=== PATIENT | male | born 1935 | race Caucasian/White ===

== ENCOUNTER 2016-07-30 09:10 | Emergency (ER) | payer MEDICARE, BC ==
--- NOTE | 2016-07-30 10:22 | EDM.PDOC ---
ED HISTORY OF PRESENT ILLNESS - General Chief Complaint: Respiratory Problem Stated Complaint: SWOLLEN FEET,CONGESTION Time Seen by Provider: 07/30/16 09:40 Source: Reports: Patient, Family, Old records, RN notes reviewed History Limitations: Reports: No limitations - History of Present Illness INITIAL COMMENTS - FREE TEXT/NARRATIVE: 81-year-old gentleman presents emergency department today complaining of shortness of breath and congestion as well as weight gain and swollen feet. Is recently admitted to hospital on the of this month for bilateral pneumonia treated with the IV antibiotics did well with good resolution cultures were negative however a time admission BNP was 2600 he does have a known history of aortic stenosis his last gradient done in March of 2016 was 31 mm he is trying to decide if he is a candidate for valve replacement for which the cut off is 40 mm. Denies any fevers or chest pain no or GI symptoms, - Related Data Allergies/ADRs: Allergies Allergy/AdvReac Type Severity Reaction Status Date / Time amoxicillin [From Augmentin] AdvReac Diarrhea Verified 07/30/16 09:25 atorvastatin calcium AdvReac Muscle Verified 07/30/16 09:25 [From Lipitor] Aches clavulanic acid AdvReac Diarrhea Verified 07/30/16 09:25 [From Augmentin] Home Meds: Home Meds Allopurinol [Zyloprim] 300 mg PO DAILY 09/30/13 [History] Aspirin [[place] Chewable Aspirin] 81 mg PO DAILY 09/30/13 [History] Rosuvastatin [Crestor] 10 mg PO DAILY 09/30/13 [History] Valsartan/Hydrochlorothiazide [Valsartan-Hctz 160-25 mg Tab] 1 each PO DAILY 06/15 [History] Pindolol 5 mg PO BID 07/20/16 [History] Saw [place] Fruit [Saw [place]] 1 tab PO DAILY 07/20/16 [History] Levofloxacin [Levaquin] 750 mg PO Q24H #4 tablet 07/26/16 [Rx] L.acidoph,Paracasei, B.lactis [Probiotic] 1 each PO DAILY 07/30/16 [History] Past Medical History HEENT History: Reports: Hard of hearing, Impaired vision Cardiovascular History: Reports: High cholesterol, Hypertension Other Cardiovascular History: aortic stenosis Respiratory History: Reports: Bronchitis, recurrent, Pneumonia, recurrent Gastrointestinal History: Reports: Other (see below) Other Gastrointestinal History: fiona has slight ter in large intestine after having CT scan 2 weeks ago Genitourinary History: Reports: BPH Endocrine/Metabolic History: Reports: Diabetes, type II, Hypothyroidism Hematologic History: Reports: Idiopathic thrombocytopenia Oncologic (Cancer) History: Reports: Other (see below) Other Oncologic History: 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 Dermatologic History: Reports: Melanoma Other Dermatologic History: back - Infectious Disease History Infectious Disease History: Reports: Chicken pox, Shingles - Past Surgical History Respiratory Surgical History: Reports: Thoracotomy Social & Family History - Family History Family Medical History: Noncontributory - Tobacco Use Smoking Status *Q: Never Smoker Second Hand Smoke Exposure: No - Caffeine Use Caffeine Use: Reports: Coffee Other Caffeine Use: 3 cups coffee per day - Alcohol Use Days Per Week of Alcohol Use: 3 Number of Drinks Per Day: 2 Total Drinks Per Week: 6 - Recreational Drug Use Recreational Drug Use: No ED ROS GENERAL - Review of Systems Review Of Systems: See Below Constitutional: Reports: weight gain. Denies: fever, chills HEENT: Reports: No symptoms Respiratory: Reports: shortness of breath, cough. Denies: wheezing, sputum Cardiovascular: Reports: Dyspnea on exertion. Denies: Chest pain GI/Abdominal: Reports: No symptoms : Reports: no symptoms Musculoskeletal: Reports: no symptoms Skin: Reports: no symptoms Neurological: Reports: no symptoms Psychiatric: Reports: No symptoms ED EXAM, GENERAL - Physical Exam Exam: See Below Free Text/Narrative:: General: Male, not in any distress, alert and oriented x3 HEENT: head is atraumatic normocephalic, eyes pupils equal round reactive to light and accommodation sclera clear no conjunctivitis appreciated. Ears tympanic membranes clear and perez landmarks and light reflex are present bilaterally canals are clear. Nose no septal deviation, nares are clear, no blood present. Mouth mucosa is dry and pink no erythema or exudate noted in soft palate, tongue is midline uvula is midline, dentition is intact. Neck: Supple no thyromegaly no tracheal deviation. Nodes: Cervical nodes subclavicular nodes nontender no palpable lymphadenopathy noted. Lungs: Good aeration however crackles can be appreciated mid to lower lung larios bilaterally CV: Regular rate and rhythm S1 and S2 appreciated grade 3/6 systolic ejection murmur best appreciated left sternal border. Abdomen: Soft, nontender, no palpable masses or organomegaly appreciated, no distention no guarding bowel sounds are present, . Neuro: Cranial nerves II through XII grossly intact Skin: Warm and dry, intact Extremities: +2 pitting pedal edema bilaterally Course - Vital Signs Last Recorded V/S: Last Vital Signs Temp 97.2 F 07/30/16 09:10 Pulse 101 H 07/30/16 09:10 Resp 15 07/30/16 09:10 BP 148/84 H 07/30/16 11:01 Pulse Ox 86 L 07/30/16 09:10 - Orders/Labs/Meds Orders: Active Orders 24 hr Category Date Time Status Cardiac Monitoring [RC] .As Directed Care 07/30/16 10:16 Active Peripheral IV Care [RC] . DIRECTED Care 07/30/16 10:43 Active Sodium Chloride 0.9% [Saline Flush] Med 07/30/16 10:43 Active 10 ml FLUSH ASDIRECTED PRN Peripheral IV Insertion Adult [OM.PC] Urgent Oth 07/30/16 10:42 Ordered Medication Orders Sodium Chloride (Saline Flush) 10 ml FLUSH ASDIRECTED PRN PRN Reason: Keep Vein Open Labs: Laboratory Tests 07/30/16 07/30/16 07/30/16 Range/Units 10:21 10:21 10:31 WBC 9.0 (4.5-11.0) K/uL RBC 4.48 (4.30-5.90) M/uL Hgb 13.4 (12.0-15.0) g/dL Hct 40.0 (40.0-54.0) % MCV 89 (80-98) fL MCH 30 (27-31) pg MCHC 34 (32-36) % Plt Count 232 (150-400) K/uL Neut % (Auto) 79 H (36-66) % Lymph % (Auto) 10 L (24-44) % [place] % (Auto) 10 H (2-6) % Eos % (Auto) 1 L (2-4) % Baso % (Auto) 0 (0-1) % Sodium 132 L (140-148) mmol/L Potassium 3.3 L (3.6-5.2) mmol/L Chloride 91 L (100-108) mmol/L Carbon Dioxide 34 H (21-32) mmol/L Anion Gap 10.3 (5.0-14.0) mmol/L BUN 16 (7-18) mg/dL Creatinine 1.1 (0.8-1.3) mg/dL Est Cr Clr Drug Dosing 52.54 mL/min Estimated GFR (MDRD) > 60 (>60) Glucose 114 H (74-106) mg/dL Calcium 8.3 L (8.5-10.1) mg/dL Total Bilirubin 0.6 (0.2-1.0) mg/dL AST 50 H (15-37) U/L ALT 110 H (12-78) U/L Alkaline Phosphatase 113 D (46-116) U/L Troponin I < 0.017 (0.000-0.056) ng/mL [id number]-[id number] Pept 772 H (5-450) pg/mL Total Protein 6.6 (6.4-8.2) g/dL Albumin 2.8 L (3.4-5.0) g/dL Globulin 3.8 H (2.3-3.5) g/dL Albumin/Globulin Ratio 0.7 L (1.2-2.2) Urine Color Yellow Urine Appearance Clear Urine pH 7.0 (4.5-8.0) Ur Specific [place] 1.010 (1.008-1.030) Urine Protein Negative (NEGATIVE) mg/dL Urine Glucose (UA) Normal (NEGATIVE) mg/dL Urine Ketones Negative (NEGATIVE) mg/dL Urine Occult Blood Negative (NEGATIVE) Urine Nitrite Negative (NEGAITVE) Urine Bilirubin Negative (NEGATIVE) Urine Urobilinogen Normal (NORMAL) mg/dL Ur Leukocyte Esterase Negative (NEGATIVE) Urine RBC 0-5 (0-5) Urine WBC 0-5 (0-5) Ur Epithelial Cells Rare Amorphous Sediment Not seen Urine Bacteria Not seen Urine Mucus Not seen Meds: Medications Generic Name Dose Route Start Last Admin Trade Name Freq PRN Reason Stop Dose Admin Sodium Chloride 10 ml 07/30/16 10:43 Saline Flush FLUSH ASDIRECTED PRN Keep Vein Open Discontinued Medications Generic Name Dose Route Start Last Admin Trade Name Freq PRN Reason Stop Dose Admin Furosemide 40 mg 07/30/16 10:43 07/30/16 11:01 Lasix IVPUSH 07/30/16 10:44 40 mg ONETIME ONE Administration Departure - Departure Time of Disposition: 12:41 Disposition: Home, Self-Care 01 Condition: fair Clinical Impression: Aortic stenosis Qualifiers: Cardiac valve disease etiology: etiology unspecified Qualified Code(s): I35.0 - Nonrheumatic aortic (valve) stenosis Forms: ED Department Discharge Additional Instructions: start the Lasix 40 mg once a day in the morning start that medication tomorrow, please call your primary care provider or your pens and pencils dipper on Friday if you have not heard the results of the echocardiogram, call or return to the ED with worsening of symptoms - My Orders Last 24 Hours: My Active Orders 07/30/16 10:16 Cardiac Monitoring [RC] .As Directed 07/30/16 10:42 Peripheral IV Insertion Adult [OM.PC] Urgent 07/30/16 10:43 Peripheral IV Care [RC] . DIRECTED Sodium Chloride 0.9% [Saline Flush] 10 ml FLUSH ASDIRECTED PRN - Assessment/Plan Last 24 Hours: My Active Orders 07/30/16 10:16 Cardiac Monitoring [RC] .As Directed 07/30/16 10:42 Peripheral IV Insertion Adult [OM.PC] Urgent 07/30/16 10:43 Peripheral IV Care [RC] . DIRECTED Sodium Chloride 0.9% [Saline Flush] 10 ml FLUSH ASDIRECTED PRN Plan: Assessment Acuity = chronic Site and laterality = aortic stenosis Etiology = fluid back up secondary to aortic stenosis Manifestations = dyspnea, pedal edema, weight gain Location of injury = home Lab values = CBC unremarkable sodium load 132 consistent hyponatremia potassium low at 3.3 consistent hypokalemia AST elevated at 50 ALT elevated at 110 consistently elevated liver enzymes BNP mildly elevated at 772 albumin 2.8 consistent hypoalbuminemia chest x-ray shows resolution of pneumonias Plan I did review the pathophysiology of his aortic stenosis with him his last echo demonstrated a aortic gradient of 31 mmHg I set him up for an echocardiogram in 2 days he was given 40 mg of Lasix here plan to continue 40 mg of Lasix once a day I have also discussed the case with his primary care provider who he is going to contact next week and we'll go over the results of his echocardiogram if he does meet criteria primary care and/or his pens and pencils dipper we'll try and coordinate a consultation for a transaortic valve replacement if he does not meet criteria continue with medical management and symptomatic care Patient was in agreement with the plan all questions were answered, they were instructed to return to the emergency department or call for worsening symptoms. This note was dictated using Scaleform voice recognition software please call with any questions.
[2016-07-30] MEDS ORDERED: Furosemide 40 MG/4 ML VIAL IVPUSH ONE (10:43)
[2016-07-30] MEDS ORDERED: Sodium Chloride 0.9% 10 ML Syringe FLUSH PRN (10:43)
--- NOTE | 2016-07-30 10:52 | CR ---
Chest 2V HISTORY: Shortness of breath COMPARISON: Chest x-ray 07/22/[address] chest 07/20/2016. FINDINGS: Elevation left hemidiaphragm. Patient has known infiltrates at both lung bases on prior CT scan. There is likely some minimal subtle residual infiltrate at the medial left lung base. Right l kaveh is clear. Old left-sided rib deformities. Impression: Probable minimal infiltrate remaining at left lung base.
[2016-07-30 13:48] VITALS: BP 144/77
== END 2016-07-30 13:49 | disposition home or self-care (01) ==
LOC: JP.ED 09:10
DX: I35.0 Nonrheumatic aortic (valve) stenosis (principal); E78.00 Pure hypercholesterolemia, unspecified; E11.9 Type 2 diabetes mellitus without complications; I10 Essential (primary) hypertension; E03.9 Hypothyroidism, unspecified; Z79.82 Long term (current) use of aspirin; Z79.899 Other long term (current) drug therapy; Z88.1 Allergy status to other antibiotic agents; Z88.8 Allergy status to other drugs, medicaments and biological substances
CPT/HCPCS: 36415; 71020; 80053; 81001; 83880; 84484; 85025; 96374; 99285; J1940; 99284

== ENCOUNTER 2016-12-05 12:40 | Inpatient (IN) | payer MEDICARE, BC ==
--- NOTE | 2016-12-05 14:18 | CR ---
Cardiomegaly. Elevated left hemidiaphragm. Scarring or atelectasis left lung base. Old left rib frac tures. Diffuse hazy density right upper lobe most indicative of pneumonia. Density appears somewhat nodular and would recommend radiographic follow-up to resolution.
--- NOTE | 2016-12-05 15:20 | EDM.PDOC ---
ED HPI GENERAL MEDICAL PROBLEM - General Chief Complaint: Respiratory Problem Stated Complaint: MED[facility] Time Seen by Provider: 12/05/16 13:08 Source of Information: Reports: Patient, Family History Limitations: Reports: No Limitations - History of Present Illness INITIAL COMMENTS - FREE TEXT/NARRATIVE: This patient arrived by EMS. His said that this morning he was started sprawled out on the bed half on half off syncope this oriented disoriented. He needed help getting up. He did seem to respond very well he seemed to be wheezing. He refused to go the hospital but his called the EMS a second time and he finally decided to come in. He had slumped again and had more congestion she thought his left side seemed a little bit droopy. He was outside all day yesterday doesn't eat or drink much. Yesterday he went to cardiac rehabilitation and they recommended he be evaluated in the ER and he refused. This patient had an aortic valve replacement and Sue at [facility]. - Related Data Allergies Allergy/AdvReac Type Severity Reaction Status Date / Time amoxicillin [From Augmentin] AdvReac Diarrhea Verified 07/30/16 09:25 atorvastatin calcium AdvReac Muscle Verified 07/30/16 09:25 [From Lipitor] Aches clavulanic acid AdvReac Diarrhea Verified 07/30/16 09:25 [From Augmentin] Home Meds: Home Meds Allopurinol [Zyloprim] 300 mg PO DAILY 09/30/13 [History] Aspirin [[place] Chewable Aspirin] 81 mg PO DAILY 09/30/13 [History] Rosuvastatin [Crestor] 10 mg PO DAILY 09/30/13 [History] Valsartan/Hydrochlorothiazide [Valsartan-Hctz 160-25 mg Tab] 1 each PO DAILY 06/15 [History] Pindolol 5 mg PO BID 07/20/16 [History] Saw [place] Fruit [Saw [place]] 1 tab PO DAILY 07/20/16 [History] Clopidogrel [Plavix] 1 tab PO DAILY 12/05/16 [History] Levothyroxine 1 tab PO DAILY 12/05/16 [History] Magnesium Oxide [Magnesium] 1 tab PO DAILY 12/05/16 [History] Past Medical History HEENT History: Reports: Hard of Hearing, Impaired Vision Cardiovascular History: Reports: High Cholesterol, Hypertension Other Cardiovascular History: aortic stenosis Respiratory History: Reports: Bronchitis, Recurrent, Pneumonia, Recurrent Gastrointestinal History: Reports: Other (See Below) Other Gastrointestinal History: stats has slight ter in large intestine after having CT scan 2 weeks ago Genitourinary History: Reports: BPH Musculoskeletal History: Reports: Gout Endocrine/Metabolic History: Reports: Diabetes, Type II, Hypothyroidism Hematologic History: Reports: Idiopathic Thrombocytopenia Oncologic (Cancer) History: Reports: Other (See Below) Other Oncologic History: 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 Dermatologic History: Reports: Melanoma Other Dermatologic History: back - Infectious Disease History Infectious Disease History: Reports: Chicken Pox, Shingles - Past Surgical History Respiratory Surgical History: Reports: Thoracotomy Social & Family History - Family History Family Medical History: Noncontributory - Tobacco Use Smoking Status *Q: Never Smoker Second Hand Smoke Exposure: No - Caffeine Use Caffeine Use: Reports: Coffee Other Caffeine Use: 3 cups coffee per day - Alcohol Use Days Per Week of Alcohol Use: 3 Number of Drinks Per Day: 2 Total Drinks Per Week: 6 - Recreational Drug Use Recreational Drug Use: No ED ROS GENERAL - Review of Systems Review Of Systems: ROS reveals no pertinent complaints other than HPI. Constitutional: Reports: Other (See history of present illness) HEENT: Reports: No Symptoms Respiratory: Reports: Wheezing, Cough Cardiovascular: Reports: No Symptoms Endocrine: Reports: No Symptoms GI/Abdominal: Reports: No Symptoms : Reports: No Symptoms Musculoskeletal: Reports: No Symptoms Skin: Reports: No Symptoms Neurological: Reports: Other (Same as out of it) Psychiatric: Reports: No Symptoms (Seems out of it) Hematologic/Lymphatic: Reports: No Symptoms ED EXAM, GENERAL - Physical Exam Exam: See Below Exam Limited By: No Limitations General Appearance: Alert, No Apparent Distress, Other (Awake alert happy smiling talkative eating lunch. He does have a wet sounding cough.) Eye Exam: Bilateral Eye: Normal Inspection Ears: Normal External Exam Throat/Mouth: Normal Oropharynx Head: Atraumatic Neck: Normal Inspection Respiratory/Chest: Rhonchi (Fight rhonchi bilaterally.) Cardiovascular: Regular Rate, Rhythm GI/Abdominal: Non-Tender Extremities: Normal Inspection Neurological: Alert, Oriented Psychiatric: Normal Affect, Normal Mood Skin Exam: Warm, Dry, Other (Skin turgor normal) Course - Vital Signs Last Recorded V/S: Last Vital Signs Temp 36.8 C 12/05/16 12:58 Pulse 98 12/05/16 12:58 Resp 18 12/05/16 12:58 BP 169/76 H 12/05/16 12:58 Pulse Ox 95 12/05/16 12:58 - Orders/Labs/Meds Orders: Active Orders 24 hr Category Date Time Status EKG Documentation Completion [RC] ASDIRECTED Care 12/05/16 13:20 Active CULTURE BLOOD [BC] Urgent Lab 12/05/16 15:07 Ordered CULTURE BLOOD [BC] Urgent Lab 12/05/16 15:07 Ordered Blood Culture x2 Reflex Set [OM.PC] Urgent Oth 12/05/16 15:07 Ordered EKG 12 Lead [EK] Urgent Ther 12/05/16 13:20 Ordered Labs: Laboratory Tests 12/05/16 12/05/16 12/05/16 Range/Units 13:30 13:30 14:10 WBC 28.8 H (4.5-11.0) K/uL RBC 3.96 L (4.30-5.90) M/uL Hgb 12.0 (12.0-15.0) g/dL Hct 36.1 L (40.0-54.0) % MCV 91 (80-98) fL MCH 30 (27-31) pg MCHC 33 (32-36) % Plt Count 188 (150-400) K/uL Neut % (Auto) 94 H (36-66) % Lymph % (Auto) 2 L (24-44) % [place] % (Auto) 4 (2-6) % Eos % (Auto) 0 L (2-4) % Baso % (Auto) 0 (0-1) % Sodium 125 L (140-148) mmol/L Potassium 4.6 (3.6-5.2) mmol/L Chloride 93 L (100-108) mmol/L Carbon Dioxide 25 (21-32) mmol/L Anion Gap 11.6 (5.0-14.0) mmol/L BUN 35 H D (7-18) mg/dL Creatinine 2.1 H D (0.8-1.3) mg/dL Est Cr Clr Drug Dosing 27.52 mL/min Estimated GFR (MDRD) 30 L (>60) Glucose 214 H (74-106) mg/dL Calcium 8.6 (8.5-10.1) mg/dL Total Bilirubin 0.6 (0.2-1.0) mg/dL AST 32 (15-37) U/L ALT 24 D (12-78) U/L Alkaline Phosphatase 56 (46-116) U/L Troponin I 0.079 H* (0.000-0.056) ng/mL Agg-C-Olqhgknydry Pept 3610 H (5-450) pg/mL Total Protein 7.0 (6.4-8.2) g/dL Albumin 3.0 L (3.4-5.0) g/dL Globulin 4.0 H (2.3-3.5) g/dL Albumin/Globulin Ratio 0.8 L (1.2-2.2) Urine Color [place] Urine Appearance Slightly cloudy Urine pH 5.0 (4.5-8.0) Ur Specific [place] 1.020 (1.008-1.030) Urine Protein Trace (NEGATIVE) mg/dL Urine Glucose (UA) Normal (NEGATIVE) mg/dL Urine Ketones Negative (NEGATIVE) mg/dL Urine Occult Blood Negative (NEGATIVE) Urine Nitrite Negative (NEGAITVE) Urine Bilirubin Small (NEGATIVE) Urine Urobilinogen 1 (NORMAL) mg/dL Ur Leukocyte Esterase Negative (NEGATIVE) Urine RBC 0-5 (0-5) Urine WBC 0-5 (0-5) Ur Epithelial Cells Few Amorphous Sediment Rare Urine Bacteria Not seen Urine Mucus Not seen Urine Other - Radiology Interpretation Free Text/Narrative:: Chest x-ray shows fluffy infiltrates right side consistent with pneumonia - Re-Assessments/Exams Free Text/Narrative Re-Assessment/Exam: 12/05/16 15:18 EKG showed sinus tachycardia at 101. There may be right ventricular conduction delay. No obvious ischemic changes White blood cell count is over 28,000 troponin is elevated but it's believe that is due to infection. I informed patient that he had evidence of pneumonia needed to be in the hospital on IV antibiotics. I informed Dr. Felder he'll see him in the ER very shortly. Blood cultures have been ordered Departure - Departure Time of Disposition: 15:19 Disposition: Admitted As Inpatient 64 Condition: Serious Clinical Impression: Pneumonia - Discharge Information Forms: ED Department Discharge - My Orders Last 24 Hours: My Active Orders 12/05/16 13:20 EKG Documentation Completion [RC] ASDIRECTED EKG 12 Lead [EK] Urgent 12/05/16 15:07 CULTURE BLOOD [BC] Urgent CULTURE BLOOD [BC] Urgent Blood Culture x2 Reflex Set [OM.PC] Urgent - Assessment/Plan Last 24 Hours: My Active Orders 12/05/16 13:20 EKG Documentation Completion [RC] ASDIRECTED EKG 12 Lead [EK] Urgent 12/05/16 15:07 CULTURE BLOOD [BC] Urgent CULTURE BLOOD [BC] Urgent Blood Culture x2 Reflex Set [OM.PC] Urgent
--- NOTE | 2016-12-05 16:28 | PCM.HP ---
H&P History of Present Illness - General Date of Service: 12/05/16 Admit Problem/Dx: Admission Diagnosis/Problem Admission Diagnosis/Problem Pneumonia Source of Information: Patient, Family, Provider History Limitations: Reports: Altered Mental Status - History of Present Illness Initial Comments - Free Text/Narative: Trever presents to the emergency room today with several days of cough, shortness of breath and acute onset of weakness and confusion this morning. He believes that he has been in his usual state of health until this morning but his reports that he has been coughing quite a bit and was told that he should be seen by a doctor yesterday. She has noticed that he has been more short of breath. This morning he was very weak and was confused and slurring his speech. She did not notice any specific difficulties with focal weakness. No fevers were measured at home. Appetite and energy have both been decreased throughout the day. No reports of diarrhea or change in bowel habits. No lower extremity edema. He had his aortic valve replaced at the end of August and had been doing well prior to progression of symptoms more recently. Workup in the emergency room was suggestive of right lung pneumonia as well as acute kidney injury. He is hypoxic and requires more than 3 L of supplemental oxygen. Troponin level was also mildly elevated. He will be admitted to the intensive care unit for further treatment. - Related Data Allergies/Adverse Reactions: Allergies Allergy/AdvReac Type Severity Reaction Status Date / Time amoxicillin [From Augmentin] AdvReac Diarrhea Verified 07/30/16 09:25 atorvastatin calcium AdvReac Muscle Verified 07/30/16 09:25 [From Lipitor] Aches clavulanic acid AdvReac Diarrhea Verified 07/30/16 09:25 [From Augmentin] Home Medications: Home Meds Allopurinol [Zyloprim] 300 mg PO DAILY 09/30/13 [History] Aspirin [[place] Chewable Aspirin] 81 mg PO DAILY 09/30/13 [History] Rosuvastatin [Crestor] 10 mg PO DAILY 09/30/13 [History] Pindolol 5 mg PO BID 07/20/16 [History] Saw [place] Fruit [Saw [place]] 1 tab PO DAILY 07/20/16 [History] Clopidogrel [Plavix] 75 mg PO DAILY 12/05/16 [History] Levothyroxine 25 mcg PO DAILY 12/05/16 [History] Magnesium Oxide [Magnesium] 400 mg PO BID 12/05/16 [History] Valsartan 160 mg PO DAILY 12/05/16 [History] Past Medical History HEENT History: Reports: Hard of Hearing, Impaired Vision Cardiovascular History: Reports: High Cholesterol, Hypertension Other Cardiovascular History: aortic stenosis Respiratory History: Reports: Bronchitis, Recurrent, Pneumonia, Recurrent Gastrointestinal History: Reports: Other (See Below) Other Gastrointestinal History: stats has slight ter in large intestine after having CT scan 2 weeks ago Genitourinary History: Reports: BPH Musculoskeletal History: Reports: Gout Endocrine/Metabolic History: Reports: Diabetes, Type II, Hypothyroidism Hematologic History: Reports: Idiopathic Thrombocytopenia Oncologic (Cancer) History: Reports: Other (See Below) Other Oncologic History: 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 Dermatologic History: Reports: Melanoma Other Dermatologic History: back - Infectious Disease History Infectious Disease History: Reports: Chicken Pox, Shingles - Past Surgical History Respiratory Surgical History: Reports: Thoracotomy Social & Family History - Family History Family Medical History: Noncontributory - Tobacco Use Smoking Status *Q: Never Smoker Second Hand Smoke Exposure: No - Caffeine Use Caffeine Use: Reports: Coffee Other Caffeine Use: 3 cups coffee per day - Alcohol Use Days Per Week of Alcohol Use: 3 Number of Drinks Per Day: 2 Total Drinks Per Week: 6 - Recreational Drug Use Recreational Drug Use: No H&P Review of Systems - Review of Systems: Review Of Systems: See Below Free Text/Narrative: A complete 12 point review of systems was obtained. Pertinent positives and negatives are noted in the history of present illness. All other systems were reviewed and were negative except as noted. Exam - Exam Exam: See Below - Vital Signs Vital Signs: Last Vital Signs Temp 36.8 C 12/05/16 12:58 Pulse 98 12/05/16 12:58 Resp 18 12/05/16 12:58 BP 169/76 H 12/05/16 12:58 Pulse Ox 95 12/05/16 12:58 Weight: 80.286 kg - Exam Quality Assessment: Supplemental Oxygen General: Alert, Oriented, Cooperative. No: Mild Distress HEENT: Conjunctiva Clear, Posterior Pharynx Clear. No: Scleral Icterus Neck: Supple, Trachea Midline. No: Lymphadenopathy, Thyromegaly Lungs: Normal Respiratory Effort, Rales (throughout right lung). No: Wheezing Cardiovascular: Regular Rate, Regular Rhythm Abdomen: Normal Bowel Sounds, Soft. No: Distention, Tenderness Back Exam: Normal Inspection, Full Range of Motion Extremities: Normal Inspection, Edema (mild ankle edema). No: Cyanosis Skin: Warm, Dry Neuro Extensive - Mental Status: Alert, Oriented x3, Nl Response to Commands Neuro Extensive - Motor, Sensory, Reflexes: CN II-XII Intact. No: Dysarthria, Abnormal Motor, Tremor Psychiatric: Alert, Normal Affect - Patient Data Lab Results Last 24 hrs: Laboratory Results - last 24 hr 12/05/16 12/05/16 12/05/16 Range/Units 13:30 13:30 14:10 WBC 28.8 H (4.5-11.0) K/uL RBC 3.96 L (4.30-5.90) M/uL Hgb 12.0 (12.0-15.0) g/dL Hct 36.1 L (40.0-54.0) % MCV 91 (80-98) fL MCH 30 (27-31) pg MCHC 33 (32-36) % Plt Count 188 (150-400) K/uL Neut % (Auto) 94 H (36-66) % Lymph % (Auto) 2 L (24-44) % [place] % (Auto) 4 (2-6) % Eos % (Auto) 0 L (2-4) % Baso % (Auto) 0 (0-1) % Sodium 125 L (140-148) mmol/L Potassium 4.6 (3.6-5.2) mmol/L Chloride 93 L (100-108) mmol/L Carbon Dioxide 25 (21-32) mmol/L Anion Gap 11.6 (5.0-14.0) mmol/L BUN 35 H D (7-18) mg/dL Creatinine 2.1 H D (0.8-1.3) mg/dL Est Cr Clr Drug Dosing 27.52 mL/min Estimated GFR (MDRD) 30 L (>60) Glucose 214 H (74-106) mg/dL Calcium 8.6 (8.5-10.1) mg/dL Total Bilirubin 0.6 (0.2-1.0) mg/dL AST 32 (15-37) U/L ALT 24 D (12-78) U/L Alkaline Phosphatase 56 (46-116) U/L Troponin I 0.079 H* (0.000-0.056) ng/mL [id number] Pept 3610 H (5-450) pg/mL Total Protein 7.0 (6.4-8.2) g/dL Albumin 3.0 L (3.4-5.0) g/dL Globulin 4.0 H (2.3-3.5) g/dL Albumin/Globulin Ratio 0.8 L (1.2-2.2) Urine Color [place] Urine Appearance Slightly cloudy Urine pH 5.0 (4.5-8.0) Ur Specific [place] 1.020 (1.008-1.030) Urine Protein Trace (NEGATIVE) mg/dL Urine Glucose (UA) Normal (NEGATIVE) mg/dL Urine Ketones Negative (NEGATIVE) mg/dL Urine Occult Blood Negative (NEGATIVE) Urine Nitrite Negative (NEGAITVE) Urine Bilirubin Small (NEGATIVE) Urine Urobilinogen 1 (NORMAL) mg/dL Ur Leukocyte Esterase Negative (NEGATIVE) Urine RBC 0-5 (0-5) Urine WBC 0-5 (0-5) Ur Epithelial Cells Few Amorphous Sediment Rare Urine Bacteria Not seen Urine Mucus Not seen Urine Other Result Diagrams: 12/05/16 13:30 12/05/16 13:30 Imaging Impressions Last 24 hrs: CXR - images personally reviewed - hazy right upper chest density concerning for pneumonia. No effusion or mass *Q Meaningful Use (ADM) - VTE *Q VTE Criteria *Q: - VTE Risk Assess *Q Each Risk Factor Represents 1 Point: Swollen Legs, Current Total Score 1 Point Risk Factors: 1 Each Risk Factor Represents 2 Points: None, Previous Malignancy Total Score 2 Point Risk Factors: 2 Each Risk Factor Represents 3 Points: Age 75 Years or Greater Total Score 3 Point Risk Factors: 3 Each Risk Factor Represents 5 Points: None Total Score 5 Point Risk Factors: 0 Venous Thromboembolism Risk Factor Score *Q: 6 - Stroke *Q Stroke Criteria *Q: - AMI *Q AMI Criteria *Q: - Problem List (1) Pneumonia involving right lung SNOMED Code(s): 908318073 ICD Code: J18.9 - PNEUMONIA, UNSPECIFIED ORGANISM Status: Acute Current Visit: Yes Qualifiers: Pneumonia type: due to unspecified organism Lung location: unspecified part of lung Qualified Code(s): J18.9 - Pneumonia, unspecified organism (2) Acute kidney injury SNOMED Code(s): 28358779 ICD Code: N17.9 - ACUTE KIDNEY FAILURE, UNSPECIFIED Status: Acute Current Visit: Yes (3) HTN, Essential hypertension SNOMED Code(s): 60060061 ICD Code: I10 - ESSENTIAL (PRIMARY) HYPERTENSION Status: Chronic Current Visit: No (4) Aortic stenosis SNOMED Code(s): 80713908 ICD Code: I35.0 - NONRHEUMATIC AORTIC (VALVE) STENOSIS Status: Chronic Current Visit: No Qualifiers: Cardiac valve disease etiology: etiology unspecified Qualified Code(s): I35.0 - Nonrheumatic aortic (valve) stenosis Problem List Initiated/Reviewed/Updated: Yes Orders Last 24hrs: Active Orders 24 hr Category Date Time Status Patient Status Manage Transfer [TRANSFER] Routine ADT 12/05/16 16:16 Ordered EKG Documentation Completion [RC] ASDIRECTED Care 12/05/16 13:20 Active CULTURE BLOOD [BC] Urgent Lab 12/05/16 15:07 Received CULTURE BLOOD [BC] Urgent Lab 12/05/16 15:15 Received Levofloxacin/Dextrose 5%-Water [Levaquin in D5W 750 MG/ Med 12/05/16 16:15 Ordered 150 ML] 750 mg Premix Bag 1 bag IV Q48H Sodium Chloride 0.9% [Normal Saline] 1,000 ml Med 12/05/16 16:30 Ordered IV ASDIRECTED Blood Culture x2 Reflex Set [OM.PC] Urgent Oth 12/05/16 15:07 Ordered Resuscitation Status Routine Resus Stat 12/05/16 16:19 Ordered EKG 12 Lead [EK] Urgent Ther 12/05/16 13:20 Ordered Medication Orders Levofloxacin/Dextrose 750 mg/ (Premix) 150 mls @ 100 mls/hr IV Q48H [place] Sodium Chloride (Normal Saline) 1,000 mls @ 125 mls/hr IV ASDIRECTED [place] Assessment/Plan Comment:: Assessment and plan - Right lung pneumonia with hypoxic respiratory failure - chest x-ray suggests right lung pneumonia and patient does have a history of previous pneumonias. No recent antibiotics or steroids. He is hypoxic but there is no evidence for sepsis at this time. Infection could explain his weakness and confusion. -Levofloxacin -As needed nebulizers -Supplement oxygen as needed -Sputum culture if able -Blood cultures if he spikes a fever Elevated troponin - mild elevation which is probably result of the hypoxia related to the pneumonia. -Cardiac monitoring -Serial troponin levels Acute kidney injury - baseline of stage III chronic kidney disease but creatinine is nearly double his usual level. -IV fluids -Repeat labs in the morning Essential hypertension - pressure acceptably controlled at this time and usual medications will be continued. Aortic stenosis status post TAVR - surgery done at [facility] at the end of August. Clinically doing well with no evidence for heart failure. -Continue medical management Maintenance issues - - DVT prophylaxis - mechanical plus dual antiplatelet therapy - GI prophylaxis - not indicated - Nutrition - low sodium diet - [place] catheter - not indicated CODE STATUS - full code Admission justification - This patient will be admitted for inpatient services and is medically appropriate meeting medical necessity for inpatient admission as outlined in my documentation. I reasonably expect the patient will require inpatient services that span a period time over 2 midnights. I reasonably expect this patient to be discharged or transferred within 96 hours [facility]. Disposition - anticipate discharge to home with home health care after the hospital stay Primary care physician - Dr. Skylar Felder M.D.
[2016-12-05] MEDS ORDERED: Sodium Chloride 0.9% 1,000 ML IV SCH (16:30)
[2016-12-05] MEDS ORDERED: Levofloxacin/Dextrose 5%-Water 750 MG in Premix Bag 1 BAG IV SCH (17:00)
[2016-12-05] MEDS ORDERED: guaiFENesin/Dextromethorphan 100-10 MG/5 ML Soln 10 ML Cup PO PRN (17:03)
[2016-12-05] MEDS ORDERED: Acetaminophen 325 MG Tab PO PRN (17:03)
[2016-12-05] MEDS ORDERED: Ondansetron 4 MG Tab.DIS PO PRN (17:03)
[2016-12-05] MEDS ORDERED: Polyethylene Glycol 3350 Powder 17 GM Packet PO PRN (17:03)
[2016-12-05] MEDS: Albuterol 0.083% 2.5 MG/3 ML Neb Soln NEB PRN (19:53)
[2016-12-05] MEDS: Pindolol 10 MG Tab PO SCH (20:09)
[2016-12-05] MEDS: Magnesium Oxide 400 MG Tab PO SCH (20:09)
[2016-12-05] MEDS ORDERED: PINDOLOL 5 MG PO SCH (21:00)
[2016-12-06] MEDS: Albuterol 0.083% 2.5 MG/3 ML Neb Soln NEB PRN ×2 (00:48→15:54)
[2016-12-06] MEDS: Levothyroxine 25 MCG Tab PO SCH (07:31)
--- NOTE | 2016-12-06 08:29 | PCM.PN ---
- General Info Date of Service: 12/06/16 Functional Status: Reports: pain controlled, tolerating diet - Review of Systems General: Reports: Fever Pulmonary: Denies: shortness of breath Cardiovascular: Denies: Chest Pain Systems Review Comment:: No acute events overnight. He is feeling better today with less shortness of breath. Mental status seems to have improved compared to yesterday. He has not been having any fevers. His white blood cell count is trending down as is his creatinine. He is off oxygen as of this morning. Cough is minimal at this time. - Patient Data Vitals - most recent: Last Vital Signs Temp 37 C 12/06/16 06:00 Pulse 90 12/05/16 18:00 Resp 23 H 12/06/16 06:00 BP 119/50 L 12/06/16 06:00 Pulse Ox 95 12/06/16 06:00 Weight - most recent: 80.2 kg I&O - last 24 hours: Intake & Output 12/05/16 12/06/16 12/06/16 22:59 06:59 14:59 Intake Total 590 1340 Output Total 275 Balance 590 1065 Lab Results last 24 hrs: Laboratory Results - last 24 hr 12/05/16 12/06/16 12/06/16 Range/Units 18:00 05:30 05:30 WBC 19.7 H (4.5-11.0) K/uL RBC 3.38 L (4.30-5.90) M/uL Hgb 10.3 L (12.0-15.0) g/dL Hct 31.1 L (40.0-54.0) % MCV 92 (80-98) fL MCH 31 (27-31) pg MCHC 33 (32-36) % Plt Count 163 (150-400) K/uL Sodium 130 L (140-148) mmol/L Potassium 4.3 (3.6-5.2) mmol/L Chloride 98 L (100-108) mmol/L Carbon Dioxide 27 (21-32) mmol/L Anion Gap 9.3 (5.0-14.0) mmol/L BUN 38 H (7-18) mg/dL Creatinine 1.5 H (0.8-1.3) mg/dL Est Cr Clr Drug Dosing 38.53 mL/min Estimated GFR (MDRD) 45 L (>60) Glucose 152 H (74-106) mg/dL Calcium 8.2 L (8.5-10.1) mg/dL Troponin I 0.061 H* (0.000-0.056) ng/mL Med Orders - Current: Current Medications Acetaminophen (Tylenol) 650 mg PO Q4H PRN PRN Reason: Pain (Mild 1-3)/fever Albuterol (Proventil Neb Soln) 2.5 mg NEB Q4H PRN PRN Reason: Shortness Of Breath/wheezing Last Admin: 12/06/16 00:48 Dose: 2.5 mg Allopurinol (Zyloprim) 300 mg PO DAILY [facility] Aspirin (Aspirin) 81 mg PO DAILY [facility] Clopidogrel Bisulfate (Plavix) 75 mg PO DAILY [facility] Guaifenesin/Dextromethorphan (Robitussin Dm) 10 ml PO Q4H PRN PRN Reason: Cough Levothyroxine Sodium (Levothyroxine) 25 mcg PO ACBREAKFAST [facility] Last Admin: 12/06/16 07:31 Dose: 25 mcg Magnesium Oxide (Magnesium Oxide) 400 mg PO BID [facility] Last Admin: 12/05/16 20:09 Dose: 400 mg Ondansetron HCl (Zofran Odt) 4 mg PO Q6H PRN PRN Reason: Nausea able to take PO Saw [place] (Ptom) 0 each PO DAILY [facility] Pindolol (Pindolol) 5 mg PO BID [facility] Last Admin: 12/05/16 20:09 Dose: Not Given Polyethylene Glycol (Miralax) 17 gm PO DAILY PRN PRN Reason: Constipation Rosuvastatin Calcium (Crestor) 10 mg PO DAILY [facility] Senna/Docusate Sodium (Senna Plus) 1 tab PO BID PRN PRN Reason: Constipation Valsartan (Diovan) 160 mg PO DAILY [facility] Discontinued Medications Levofloxacin/Dextrose 750 mg/ (Premix) 150 mls @ 100 mls/hr IV Q48H [facility] Last Admin: 12/05/16 17:40 Dose: 100 mls/hr Sodium Chloride (Normal Saline) 1,000 mls @ 125 mls/hr IV ASDIRECTED [facility] Last Admin: 12/06/16 02:02 Dose: 125 mls/hr - Exam Quality Assessment: No: supplemental oxygen General: alert, oriented, cooperative, no acute distress Neck: supple Lungs: Normal respiratory effort, Rales (few at the bases) Cardiovascular: Regular Rate, Regular Rhythm Abdomen: soft, no distension Extremities: no edema, normal pulses, edema Skin: warm, intact Psy/Mental Status: alert, normal affect - Problem List & Annotations (1) Pneumonia involving right lung SNOMED Code(s): 499297533 Code(s): J18.9 - PNEUMONIA, UNSPECIFIED ORGANISM Status: Acute Current Visit: Yes Qualifiers: Pneumonia type: due to unspecified organism Lung location: unspecified part of lung Qualified Code(s): J18.9 - Pneumonia, unspecified organism (2) Acute kidney injury SNOMED Code(s): 61681561 Code(s): N17.9 - ACUTE KIDNEY FAILURE, UNSPECIFIED Status: Acute Current Visit: Yes (3) HTN, Essential hypertension SNOMED Code(s): 45028526 Code(s): I10 - ESSENTIAL (PRIMARY) HYPERTENSION Status: Chronic Current Visit: No (4) Aortic stenosis SNOMED Code(s): 02828600 Code(s): I35.0 - NONRHEUMATIC AORTIC (VALVE) STENOSIS Status: Chronic Current Visit: No Qualifiers: Cardiac valve disease etiology: etiology unspecified Qualified Code(s): I35.0 - Nonrheumatic aortic (valve) stenosis - Problem List Review Problem List Initiated/Reviewed/Updated: Yes - My Orders Last 24 Hours: My Active Orders 12/05/16 16:19 Resuscitation Status Routine 12/05/16 17:03 Patient Status [ADT] Routine Intake and Output [RC] QSHIFT Notify Provider Vital Signs [RC] ASDIRECTED Oxygen Therapy [RC] PRN RT Aerosol Therapy [RC] ASDIRECTED Up With Assistance [RC] ASDIRECTED VTE/DVT Education [RC] Per Unit Routine Vital Signs [RC] Q4H CULTURE RESPIRATORY + SMEAR [RM] Routine Acetaminophen [Tylenol] 650 mg PO Q4H PRN Albuterol [Proventil Neb Soln] 2.5 mg NEB Q4H PRN Dextromethorphan/guaiFENesin [Robitussin DM] 10 ml PO Q4H PRN Docusate Sodium/Sennosides [Senna Plus] 1 tab PO BID PRN Ondansetron [Zofran ODT] 4 mg PO Q6H PRN Polyethylene Glycol 3350 [MiraLAX] 17 gm PO DAILY PRN Sequential Compression Device [OM.PC] Per Unit Routine 12/05/16 21:00 Pindolol 5 mg PO BID 12/05/16 Dinner 2 Gram Sodium Diet [DIET] 12/06/16 08:24 Convert IV to Saline Lock [OM.PC] Routine 12/06/16 08:25 Transfer Patient (Change bed) [ADT] Routine Discontinue Telemetry Monitoring [Cardiac Monitoring Discontinue] [RC] Click to Edit 12/06/16 09:00 Patient's Own Medication [Ptom] 0 each PO DAILY Valsartan [Diovan] 160 mg PO DAILY 12/07/16 05:00 BASIC METABOLIC PANEL,BMP [CHEM] Timed CBC W/O DIFF,HEMOGRAM [HEME] Timed (1) 12/07/16 17:00 Levofloxacin [Levaquin] 250 mg PO Q48H Levofloxacin [Levaquin] 500 mg PO Q48H - Plan Plan:: Assessment and plan - Right lung pneumonia with hypoxic respiratory failure - clinically improved and hypoxia seems to have resolved as of this morning. Symptoms are relatively minimal at this point. -Levofloxacin -As needed nebulizers -Supplement oxygen as needed -Blood cultures if he spikes a fever Elevated troponin - mild elevation which is probably result of the hypoxia related to the pneumonia. The level trended down fairly quickly after admission. No cardiac symptoms. -Discontinue Cardiac monitoring Acute kidney injury - creatinine has improved since admission. -Saline lock IV -Repeat labs in the morning Essential hypertension - pressures on the low side at this time and usual antihypertensive will be held today. Aortic stenosis status post TAVR - surgery done at [facility] at the end of August. Volume status appropriate and vitals are stable. -Continue medical management Maintenance issues - - DVT prophylaxis - mechanical plus dual antiplatelet therapy - GI prophylaxis - not indicated - Nutrition - low sodium diet Disposition - anticipate discharge to home with home health care after the hospital stay Madhav Felder M.D.
[2016-12-06] MEDS: Pindolol 10 MG Tab PO SCH ×2 (08:47→21:13)
[2016-12-06] MEDS: Clopidogrel 75 MG Tab PO SCH (08:47)
[2016-12-06] MEDS: Rosuvastatin 10 MG Tab PO SCH (08:47)
[2016-12-06] MEDS: Aspirin 81 MG Tab.Chew PO SCH (08:48)
[2016-12-06] MEDS: Magnesium Oxide 400 MG Tab PO SCH ×2 (08:48→21:13)
[2016-12-06] MEDS: Allopurinol 300 MG Tab PO SCH (08:49)
[2016-12-06] MEDS: SAW PALMETTO (PTOM) PO SCH (08:50)
[2016-12-06] MEDS ORDERED: Non-Formulary Medication 1 Each (Valsartan [Valsartan] 160 MG) PO SCH (09:00)
[2016-12-06] MEDS ORDERED: SAW PALMETTO FRUIT PO SCH (09:00)
[2016-12-06] MEDS: cefTRIAXone 2 GM in Sodium Chloride 0.9% 50 ML IV SCH (17:40)
[2016-12-06] MEDS: Sodium Chloride 0.9% 1,000 ML IV SCH (20:05)
[2016-12-07] MEDS: Sodium Chloride 0.9% 1,000 ML IV SCH ×3 (04:06→20:56)
[2016-12-07] MEDS: Levothyroxine 25 MCG Tab PO SCH (07:41)
[2016-12-07] MEDS: Aspirin 81 MG Tab.Chew PO SCH (08:49)
[2016-12-07] MEDS: Rosuvastatin 10 MG Tab PO SCH (08:50)
[2016-12-07] MEDS: Magnesium Oxide 400 MG Tab PO SCH ×2 (08:50→20:17)
[2016-12-07] MEDS: Pindolol 10 MG Tab PO SCH ×2 (08:51→20:17)
[2016-12-07] MEDS: Clopidogrel 75 MG Tab PO SCH (08:51)
[2016-12-07] MEDS: Allopurinol 300 MG Tab PO SCH (08:53)
--- NOTE | 2016-12-07 09:11 | PCM.PN ---
- General Info Date of Service: 12/07/16 Functional Status: Reports: pain controlled, tolerating diet - Review of Systems General: Reports: Fever, Weakness Pulmonary: Reports: shortness of breath, cough Neurological: Reports: Confusion Systems Review Comment:: patient likely aspirated yesterday afternoon and had a significant increase in his hypoxia as well as cough and upper airway secretions. He did respond well to nasotracheal suctioning. I did also add a second antibiotic. Since that time his oxygenation has improved dramatically and he is off oxygen again this morning. He had a fever yesterday evening but has not had recurrence since that time. X-ray this morning does show an increase in the infiltrate in the right lung as well as a new right middle lobe infiltrate. Clinically he seems to be doing better but still has a mildly increased work of breathing. blood pressures have been stable. - Patient Data Vitals - most recent: Last Vital Signs Temp 36.7 C 12/07/16 07:35 Pulse 86 12/07/16 08:51 Resp 22 H 12/07/16 07:35 BP 146/53 H 12/07/16 07:35 Pulse Ox 96 12/07/16 07:35 Weight - most recent: 80.2 kg I&O - last 24 hours: Intake & Output 12/06/16 12/07/16 12/07/16 22:59 06:59 14:59 Intake Total 60 1440 Output Total 175 250 Balance -115 1190 Lab Results last 24 hrs: Laboratory Results - last 24 hr 12/07/16 12/07/16 Range/Units 05:37 05:37 WBC 16.4 H (4.5-11.0) K/uL RBC 3.66 L (4.30-5.90) M/uL Hgb 11.1 L (12.0-15.0) g/dL Hct 33.9 L (40.0-54.0) % MCV 93 (80-98) fL MCH 30 (27-31) pg MCHC 33 (32-36) % Plt Count 156 (150-400) K/uL Sodium 131 L (140-148) mmol/L Potassium 4.4 (3.6-5.2) mmol/L Chloride 96 L (100-108) mmol/L Carbon Dioxide 27 (21-32) mmol/L Anion Gap 12.4 (5.0-14.0) mmol/L BUN 34 H (7-18) mg/dL Creatinine 1.4 H (0.8-1.3) mg/dL Est Cr Clr Drug Dosing 41.38 mL/min Estimated GFR (MDRD) 48 L (>60) Glucose 142 H (74-106) mg/dL Calcium 8.4 L (8.5-10.1) mg/dL Price Results last 24 hrs: Microbiology 12/06/16 12:24 Gram Stain - Final Sputum - Expectorated Med Orders - Current: Current Medications Acetaminophen (Tylenol) 650 mg PO Q4H PRN PRN Reason: Pain (Mild 1-3)/fever Last Admin: 12/06/16 16:52 Dose: 650 mg Albuterol (Proventil Neb Soln) 2.5 mg NEB Q4H PRN PRN Reason: Shortness Of Breath/wheezing Last Admin: 12/06/16 15:54 Dose: 2.5 mg Allopurinol (Zyloprim) 300 mg PO DAILY [facility] Last Admin: 12/07/16 08:53 Dose: 300 mg Aspirin (Aspirin) 81 mg PO DAILY [facility] Last Admin: 12/07/16 08:49 Dose: 81 mg Clopidogrel Bisulfate (Plavix) 75 mg PO DAILY [facility] Last Admin: 12/07/16 08:51 Dose: 75 mg Guaifenesin/Dextromethorphan (Robitussin Dm) 10 ml PO Q4H PRN PRN Reason: Cough Ceftriaxone Sodium 2 gm/ (Sodium Chloride) 50 mls @ 100 mls/hr IV Q24H [facility] Last Admin: 12/06/16 17:40 Dose: 100 mls/hr Sodium Chloride (Normal Saline) 1,000 mls @ 125 mls/hr IV ASDIRECTED [facility] Last Admin: 12/07/16 04:06 Dose: 125 mls/hr Levofloxacin 500 mg/ (Levofloxacin 250 mg) 750 mg PO Q48H [facility] Levothyroxine Sodium (Levothyroxine) 25 mcg PO ACBREAKFAST [facility] Last Admin: 12/07/16 07:41 Dose: 25 mcg Magnesium Oxide (Magnesium Oxide) 400 mg PO BID [facility] Last Admin: 12/07/16 08:50 Dose: 400 mg Ondansetron HCl (Zofran Odt) 4 mg PO Q6H PRN PRN Reason: Nausea able to take PO Saw [place] (Ptom) 0 each PO DAILY [facility] Last Admin: 12/06/16 08:50 Dose: Not Given Pindolol (Pindolol) 5 mg PO BID [facility] Last Admin: 12/07/16 08:51 Dose: 5 mg Polyethylene Glycol (Miralax) 17 gm PO DAILY PRN PRN Reason: Constipation Rosuvastatin Calcium (Crestor) 10 mg PO DAILY [facility] Last Admin: 12/07/16 08:50 Dose: 10 mg Senna/Docusate Sodium (Senna Plus) 1 tab PO BID PRN PRN Reason: Constipation Valsartan (Diovan) 160 mg PO DAILY [facility] Discontinued Medications Levofloxacin/Dextrose 750 mg/ (Premix) 150 mls @ 100 mls/hr IV Q48H [facility] Last Admin: 12/05/16 17:40 Dose: 100 mls/hr Sodium Chloride (Normal Saline) 1,000 mls @ 125 mls/hr IV ASDIRECTED [facility] Last Admin: 12/06/16 02:02 Dose: 125 mls/hr - Exam Quality Assessment: No: supplemental oxygen General: alert, oriented, cooperative, no acute distress Neck: supple Lungs: Rales (throughout right lung). No: Normal respiratory effort (mild increase in work of breathing ), Wheezing Cardiovascular: Regular Rate, Regular Rhythm. No: Murmurs Abdomen: soft, no distension Extremities: no edema, no cyanosis Skin: warm, dry Psy/Mental Status: alert, normal affect - Problem List & Annotations (1) Pneumonia involving right lung SNOMED Code(s): 086788242 Code(s): J18.9 - PNEUMONIA, UNSPECIFIED ORGANISM Status: Acute Current Visit: Yes Qualifiers: Pneumonia type: due to unspecified organism Lung location: unspecified part of lung Qualified Code(s): J18.9 - Pneumonia, unspecified organism (2) Acute kidney injury SNOMED Code(s): 89724932 Code(s): N17.9 - ACUTE KIDNEY FAILURE, UNSPECIFIED Status: Acute Current Visit: Yes (3) HTN, Essential hypertension SNOMED Code(s): 01021877 Code(s): I10 - ESSENTIAL (PRIMARY) HYPERTENSION Status: Chronic Current Visit: No (4) Aortic stenosis SNOMED Code(s): 79645443 Code(s): I35.0 - NONRHEUMATIC AORTIC (VALVE) STENOSIS Status: Chronic Current Visit: No Qualifiers: Cardiac valve disease etiology: etiology unspecified Qualified Code(s): I35.0 - Nonrheumatic aortic (valve) stenosis - Problem List Review Problem List Initiated/Reviewed/Updated: Yes - My Orders Last 24 Hours: My Active Orders 12/06/16 08:24 Convert IV to Saline Lock [OM.PC] Routine 12/06/16 08:25 Transfer Patient (Change bed) [ADT] Routine Discontinue Telemetry Monitoring [Cardiac Monitoring Discontinue] [RC] Click to Edit 12/06/16 09:00 Patient's Own Medication [Ptom] 0 each PO DAILY Valsartan [Diovan] 160 mg PO DAILY 12/06/16 12:24 CULTURE RESPIRATORY + SMEAR [RM] Routine 12/06/16 17:30 cefTRIAXone [Rocephin] 2 gm Sodium Chloride 0.9% [Normal Saline] 50 ml IV Q24H 12/06/16 18:45 Sodium Chloride 0.9% [Normal Saline] 1,000 ml IV ASDIRECTED 12/07/16 05:11 CXR [Chest 1V Frontal] [CR] AM 12/07/16 21:00 Levofloxacin [Levaquin] 750 mg PO Q48H 12/08/16 05:00 BASIC METABOLIC PANEL,BMP [CHEM] Timed CBC W/O DIFF,HEMOGRAM [HEME] Timed (1) - Plan Plan:: Assessment and plan - Right lung pneumonia with hypoxic respiratory failure - abdomen improving but likely aspirated yesterday afternoon. Significant clinical improvement in the past 12 hours and he is off oxygen again this morning. -Levofloxacin and Pip/Tazo, plan to discontinue Pip/Tazo tomorrow if stable overnight -As needed nebulizers -Supplement oxygen as needed -Blood cultures if he spikes a fever Elevated troponin - mild elevation which is probably result of the hypoxia related to the pneumonia. The level trended down fairly quickly after admission. No cardiac symptoms. Acute kidney injury - creatinine has continue to improve following admission. -Saline lock IV again this morning -Repeat labs in the morning Essential hypertension - pressures on the low side at this time and usual antihypertensive will be held today. Aortic stenosis status post TAVR - surgery done at [facility] at the end of August. no evidence for heart failure. -Continue medical management Maintenance issues - - DVT prophylaxis - mechanical plus dual antiplatelet therapy - GI prophylaxis - not indicated - Nutrition - low sodium diet Disposition - anticipate discharge to home with home health care after the hospital stay Madhav Felder M.D.
[2016-12-07] MEDS: SAW PALMETTO (PTOM) PO SCH (10:13)
[2016-12-07] MEDS: cefTRIAXone 2 GM in Sodium Chloride 0.9% 50 ML IV SCH (16:38)
[2016-12-07] MEDS ORDERED: Levofloxacin 500 MG Tab PO SCH (17:00)
[2016-12-07] MEDS ORDERED: Levofloxacin 250 MG Tab PO SCH (17:00)
[2016-12-07] MEDS: Albuterol 0.083% 2.5 MG/3 ML Neb Soln NEB PRN (20:19)
[2016-12-08 07:47] VITALS: BP 144/73
[2016-12-08] MEDS: Aspirin 81 MG Tab.Chew PO SCH (08:03)
[2016-12-08] MEDS: Levothyroxine 25 MCG Tab PO SCH (08:03)
[2016-12-08] MEDS: Rosuvastatin 10 MG Tab PO SCH (08:03)
[2016-12-08] MEDS: Pindolol 10 MG Tab PO SCH (08:03)
[2016-12-08] MEDS: Allopurinol 300 MG Tab PO SCH (08:04)
[2016-12-08] MEDS: Magnesium Oxide 400 MG Tab PO SCH (08:04)
[2016-12-08] MEDS: Clopidogrel 75 MG Tab PO SCH (08:04)
[2016-12-08] MEDS: SAW PALMETTO (PTOM) PO SCH (08:05)
--- NOTE | 2016-12-08 10:01 | PCM.DCSUM1 ---
Discharge Summary - Hospital Course Brief History: 81-year-old male with history of pneumonia, hypertension and recent aortic valve replacement who presented with weakness and confusion and was admitted for management of right lung pneumonia. - Discharge Data Discharge Date: 12/08/16 Discharge Disposition: Home, [facility] 06 Condition: Good - Discharge Diagnosis/Problem(s) (1) Pneumonia involving right lung SNOMED Code(s): 088742254 ICD Code: J18.9 - PNEUMONIA, UNSPECIFIED ORGANISM Status: Acute Current Visit: Yes Qualifiers: Pneumonia type: due to unspecified organism Lung location: lower lobe of lung Qualified Code(s): J18.1 - Lobar pneumonia, unspecified organism (2) Acute kidney injury SNOMED Code(s): 91389728 ICD Code: N17.9 - ACUTE KIDNEY FAILURE, UNSPECIFIED Status: Acute Current Visit: Yes (3) HTN, Essential hypertension SNOMED Code(s): 74965441 ICD Code: I10 - ESSENTIAL (PRIMARY) HYPERTENSION Status: Chronic Current Visit: No (4) Aortic stenosis SNOMED Code(s): 17436840 ICD Code: I35.0 - NONRHEUMATIC AORTIC (VALVE) STENOSIS Status: Chronic Current Visit: No Qualifiers: Cardiac valve disease etiology: etiology unspecified Qualified Code(s): I35.0 - Nonrheumatic aortic (valve) stenosis - Patient Summary/Data Hospital Course: Trever presented to the emergency room with weakness and confusion. Workup in the emergency room was suggestive of a right lung pneumonia with hypoxic respiratory failure, acute kidney injury and a mildly elevated troponin level. He was admitted to the intensive care unit for management of pneumonia and serial troponin levels. He was empirically started on levofloxacin for pneumonia management. His second troponin level came back improved from the first and serial levels were discontinued at this point since he did not have EKG changes or any symptoms concerning for ordinary artery disease. By the morning after admission his supplemental oxygen has been weaned off and he is saturating in the low 90s on room air. We plan to keep him 1 additional day for more IV antibiotics and monitoring with ongoing acute kidney injury/elevated creatinine. During the afternoon of December 06 he had an episode of aspiration with a rapid decline in his oxygen saturations and significant supplemental oxygen requirement. He did also have a fever at this time. I added ceftriaxone to levofloxacin and the nurses utilized nasotracheal suction to remove upper airway secretions with good results. Overnight following this event he did require supplemental oxygen at 4-6 L/m but by the next morning his oxygen saturations are back around 90 without supplemental oxygen. I did keep him in the hospital 1 additional night to provide additional IV antibiotics as well as monitor his respiratory status with significant compromise noted the night before in addition to the fever. On the morning of discharge he has been afebrile for more than 24 hours and does not require supplemental oxygen. He feels nearly back to his usual self other than some mild weakness. There have been no significant difficulties with weakness at the time of discharge that would hamper his outpatient management. His kidney function has improved to normal. I believe that he is safe for outpatient management at this time and will require 5 additional days of antibiotic therapy. We did complete the paperwork in place a referral for home health care to help ease his transition home. He has follow-up scheduled for tomorrow. He will continue his usual home medications. - Patient Instructions Diet: Regular Diet as Tolerated Activity: As Tolerated Driving: Do Not Drive (for the next week ) Showering/Bathing: May Shower Notify Provider of: Fever, Increased Pain, Nausea and/or Vomiting Other/Special Instructions: 1. You were in the hospital for management of a right lung pneumonia. I recommend 5 additional days of antibiotic therapy with levofloxacin 750 mg to be taken at bedtime. Your first dose is due tonight. Listen to your body and try to build up your strength and endurance as you are able. If you feel short of breath or tired take a break and then resume your activity. I would recommend that you not drive for the next week as you recover from this infection and build up your strength. 2. continue your home medications as previously prescribed. 3. I have placed a referral to [facility] and they will be providing home care services to help ease your transition from the hospital to your home. 4. Please seek medical attention if he develops fever greater than 101, have sudden worsening of your shortness of breath, you develop chest pressure or pain or you have severe diarrhea. - Discharge Plan Prescriptions/Med Rec: Levofloxacin 750 mg PO BEDTIME #5 tablet Home Medications: Home Meds Allopurinol [Zyloprim] 300 mg PO DAILY 09/30/13 [History] Aspirin [[place] Chewable Aspirin] 81 mg PO DAILY 09/30/13 [History] Rosuvastatin [Crestor] 10 mg PO DAILY 09/30/13 [History] Pindolol 5 mg PO BID 07/20/16 [History] Saw [place] Fruit [Saw [place]] 1 tab PO DAILY 07/20/16 [History] Clopidogrel [Plavix] 75 mg PO DAILY 12/05/16 [History] Levothyroxine 25 mcg PO DAILY 12/05/16 [History] Magnesium Oxide [Magnesium] 400 mg PO BID 12/05/16 [History] Valsartan 160 mg PO DAILY 12/05/16 [History] Levofloxacin 750 mg PO BEDTIME #5 tablet 12/08/16 [Rx] Patient Handouts: Levofloxacin tablets, Community-Acquired Pneumonia, Adult Referrals: Francisco Cheng MD [Physician] - (12/09 at 1:30 pm) - Discharge Summary/Plan Comment DC Time >30 min.: Yes (setting up home care services ) - Patient Data Vitals - Most Recent: Last Vital Signs Temp 37.3 C 12/08/16 07:00 Pulse 100 12/08/16 08:03 Resp 18 12/08/16 07:00 BP 144/73 H 12/08/16 08:03 Pulse Ox 90 L 12/08/16 07:00 Weight - Most Recent: 80.2 kg I&O - Last 24 hours: Intake & Output 12/07/16 12/08/16 12/08/16 22:59 06:59 14:59 Intake Total 1577 120 Output Total 425 400 Balance 1152 -280 Lab Results - Last 24 hrs: Laboratory Results - last 24 hr 12/08/16 12/08/16 Range/Units 05:30 05:30 WBC 11.5 H (4.5-11.0) K/uL RBC 3.38 L (4.30-5.90) M/uL Hgb 10.2 L (12.0-15.0) g/dL Hct 31.3 L (40.0-54.0) % MCV 93 (80-98) fL MCH 30 (27-31) pg MCHC 33 (32-36) % Plt Count 158 (150-400) K/uL Sodium 132 L (140-148) mmol/L Potassium 3.8 (3.6-5.2) mmol/L Chloride 98 L (100-108) mmol/L Carbon Dioxide 29 (21-32) mmol/L Anion Gap 8.8 (5.0-14.0) mmol/L BUN 22 H (7-18) mg/dL Creatinine 1.0 (0.8-1.3) mg/dL Est Cr Clr Drug Dosing 57.93 mL/min Estimated GFR (MDRD) > 60 (>60) Glucose 108 H (74-106) mg/dL Calcium 8.5 (8.5-10.1) mg/dL [facility] Results - Last 24 hrs: Microbiology 12/06/16 12:24 Gram Stain - Final Sputum - Expectorated Respiratory Culture - Preliminary NORMAL RESPIRATORY CHANELLE 1 DAY Med Orders - Current: Current Medications Acetaminophen (Tylenol) 650 mg PO Q4H PRN PRN Reason: Pain (Mild 1-3)/fever Last Admin: 12/06/16 16:52 Dose: 650 mg Albuterol (Proventil Neb Soln) 2.5 mg NEB Q4H PRN PRN Reason: Shortness Of Breath/wheezing Last Admin: 12/07/16 20:19 Dose: 2.5 mg Allopurinol (Zyloprim) 300 mg PO DAILY [facility] Last Admin: 12/08/16 08:04 Dose: 300 mg Aspirin (Aspirin) 81 mg PO DAILY [facility] Last Admin: 12/08/16 08:03 Dose: 81 mg Clopidogrel Bisulfate (Plavix) 75 mg PO DAILY [facility] Last Admin: 12/08/16 08:04 Dose: 75 mg Guaifenesin/Dextromethorphan (Robitussin Dm) 10 ml PO Q4H PRN PRN Reason: Cough Ceftriaxone Sodium 2 gm/ (Sodium Chloride) 50 mls @ 100 mls/hr IV Q24H [facility] Last Admin: 12/07/16 16:38 Dose: 100 mls/hr Levofloxacin 500 mg/ (Levofloxacin 250 mg) 750 mg PO Q48H [facility] Last Admin: 12/07/16 20:17 Dose: 750 mg Levothyroxine Sodium (Levothyroxine) 25 mcg PO ACBREAKFAST [facility] Last Admin: 12/08/16 08:03 Dose: 25 mcg Magnesium Oxide (Magnesium Oxide) 400 mg PO BID [facility] Last Admin: 12/08/16 08:04 Dose: 400 mg Ondansetron HCl (Zofran Odt) 4 mg PO Q6H PRN PRN Reason: Nausea able to take PO Saw [place] (Ptom) 0 each PO DAILY [facility] Last Admin: 12/08/16 08:05 Dose: Not Given Pindolol (Pindolol) 5 mg PO BID [facility] Last Admin: 12/08/16 08:03 Dose: 5 mg Polyethylene Glycol (Miralax) 17 gm PO DAILY PRN PRN Reason: Constipation Rosuvastatin Calcium (Crestor) 10 mg PO DAILY [facility] Last Admin: 12/08/16 08:03 Dose: 10 mg Senna/Docusate Sodium (Senna Plus) 1 tab PO BID PRN PRN Reason: Constipation Valsartan (Diovan) 160 mg PO DAILY [facility] Last Admin: 12/08/16 08:03 Dose: 160 mg Discontinued Medications Levofloxacin/Dextrose 750 mg/ (Premix) 150 mls @ 100 mls/hr IV Q48H [facility] Last Admin: 12/05/16 17:40 Dose: 100 mls/hr Sodium Chloride (Normal Saline) 1,000 mls @ 125 mls/hr IV ASDIRECTED [facility] Last Admin: 12/06/16 02:02 Dose: 125 mls/hr Sodium Chloride (Normal Saline) 1,000 mls @ 125 mls/hr IV ASDIRECTED [facility] Last Admin: 12/07/16 20:56 Dose: 125 mls/hr *Q Meaningful Use (DIS) - VTE *Q VTE Criteria *Q: - Stroke *Q Stroke Criteria *Q: - AMI *Q AMI Criteria *Q:
--- NOTE | 2016-12-09 10:52 | CR ---
Chest 1V Frontal INDICATION: cough, hypoxia FINDINGS: Comparison 12/05/2016. Mild interval worsening of the nodular infiltrate in the right upper lobe, suggestive of pneumonia. Continued follow-up recommended. Elevation left hemidiaphragm. Atelec tasis or scarring left lung base. Postoperative changes left thoracotomy. Aortic stent graft in plac e.
== END 2016-12-08 10:45 | disposition home health service (06) | DRG 193 ==
LOC: JP.ED 12:40 → UNDOADMIN 16:16 → JP.ICU 16:16 → JP.ED 16:47 → JP.ICU 17:03 → JP.MS 12-07 13:00 → JP.ICU 12-07 13:00 → UNDODISIN 12-08 10:45
PROVIDERS: ADMIT Internal Medicine; ATTEND Internal Medicine
DX: J18.9 Pneumonia, unspecified organism (principal); J96.91 Respiratory failure, unspecified with hypoxia; N17.9 Acute kidney failure, unspecified; E11.9 Type 2 diabetes mellitus without complications; I10 Essential (primary) hypertension; Z95.2 Presence of prosthetic heart valve; E03.9 Hypothyroidism, unspecified; R74.8 Abnormal levels of other serum enzymes; I35.0 Nonrheumatic aortic (valve) stenosis; R41.0 Disorientation, unspecified; R53.1 Weakness; R05 Cough; R06.02 Shortness of breath; Z87.01 Personal history of pneumonia (recurrent); E78.00 Pure hypercholesterolemia, unspecified; H91.90 Unspecified hearing loss, unspecified ear; H54.7 Unspecified visual loss; Z85.820 Personal history of malignant melanoma of skin; Z85.89 Personal history of malignant neoplasm of other organs and systems; Z92.21 Personal history of antineoplastic chemotherapy; Z92.3 Personal history of irradiation; M10.9 Gout, unspecified; Z88.1 Allergy status to other antibiotic agents; Z88.8 Allergy status to other drugs, medicaments and biological substances; Z79.82 Long term (current) use of aspirin; T17.908A Unspecified foreign body in respiratory tract, part unspecified causing other injury, initial encounter; X58.XXXA Exposure to other specified factors, initial encounter; Y92.239 Unspecified place in hospital as the place of occurrence of the external cause
CPT/HCPCS: 36415; 71010; 71010-26; 71020; 71020-26; 80048; 80053; 81001; 83735; 83880; 84484; 85025; 85027; 87040; 87070; 87205; 93005; 93010; 96365; 99285; 99285-25; A9270-GY; J0696; J1956; J7040; J7050

== ENCOUNTER 2016-12-12 16:19 | Emergency (ER) | payer MEDICARE, BC ==
[2016-12-12 17:23] VITALS: BP 156/110
--- NOTE | 2016-12-12 18:06 | EDM.PDOC ---
ED HPI GENERAL MEDICAL PROBLEM - General Chief Complaint: General Stated Complaint: HIGH BP Time Seen by Provider: 12/12/16 18:01 Source of Information: Reports: Patient History Limitations: Reports: No Limitations - History of Present Illness INITIAL COMMENTS - FREE TEXT/NARRATIVE: History of present illness: [Present here because of a high blood pressure reading at home by nurse that has been seeing him. He is come down nicely here without any intervention and they're anxious to go. He has no other complaints.] Review of systems: As per history of present illness and below otherwise all systems reviewed and negative. Past medical history: As per history of present illness and as reviewed below otherwise noncontributory. Surgical history: As per history of present illness and as reviewed below otherwise noncontributory. Social history: No reported history of drug or alcohol abuse. Family history: As per history of present illness and as reviewed below otherwise noncontributory. Physical exam: HEENT: Atraumatic, , breath sounds equal bilaterally, chest nontender. Heart: S1S2, regular, negative for clicks, rubs, or JVD. Extremities: Atraumatic, negative for cords or calf pain. Neurovascular unremarkable. Neuro: Awake, alert, oriented. Exam nonfocal. Diagnostics: [] Therapeutics: [] Impression: [Hypertension] Plan: [Follow-up is needed] Definitive disposition and diagnosis as appropriate pending reevaluation and review of above. - Related Data Allergies Allergy/AdvReac Type Severity Reaction Status Date / Time amoxicillin [From Augmentin] AdvReac Diarrhea Verified 12/12/16 17:45 atorvastatin calcium AdvReac Muscle Verified 12/12/16 17:45 [From Lipitor] Aches clavulanic acid AdvReac Diarrhea Verified 12/12/16 17:45 [From Augmentin] Home Meds: Home Meds Allopurinol [Zyloprim] 300 mg PO DAILY 09/30/13 [History] Aspirin [[place] Chewable Aspirin] 81 mg PO DAILY 09/30/13 [History] Rosuvastatin [Crestor] 10 mg PO DAILY 09/30/13 [History] Pindolol 5 mg PO BID 07/20/16 [History] Saw [place] Fruit [Saw [place]] 1 tab PO DAILY 07/20/16 [History] Clopidogrel [Plavix] 75 mg PO DAILY 12/05/16 [History] Levothyroxine 25 mcg PO DAILY 12/05/16 [History] Magnesium Oxide [Magnesium] 400 mg PO BID 12/05/16 [History] Valsartan 160 mg PO DAILY 12/05/16 [History] Levofloxacin 750 mg PO BEDTIME #5 tablet 12/08/16 [Rx] Past Medical History HEENT History: Reports: Hard of Hearing, Impaired Vision Cardiovascular History: Reports: High Cholesterol, Hypertension Other Cardiovascular History: aortic stenosis Respiratory History: Reports: Bronchitis, Recurrent, Pneumonia, Recurrent Gastrointestinal History: Reports: Other (See Below) Other Gastrointestinal History: stats has slight ter in large intestine after having CT scan 2 weeks ago Genitourinary History: Reports: BPH Musculoskeletal History: Reports: Gout Endocrine/Metabolic History: Reports: Diabetes, Type II, Hypothyroidism Hematologic History: Reports: Idiopathic Thrombocytopenia Oncologic (Cancer) History: Reports: Other (See Below) Other Oncologic History: 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 Dermatologic History: Reports: Melanoma Other Dermatologic History: back - Infectious Disease History Infectious Disease History: Reports: Chicken Pox, Shingles - Past Surgical History Respiratory Surgical History: Reports: Thoracotomy Social & Family History - Family History Family Medical History: Noncontributory - Tobacco Use Smoking Status *Q: Never Smoker Second Hand Smoke Exposure: No - Caffeine Use Caffeine Use: Reports: Coffee Other Caffeine Use: 3 cups coffee per day - Alcohol Use Days Per Week of Alcohol Use: 3 Number of Drinks Per Day: 2 Total Drinks Per Week: 6 - Recreational Drug Use Recreational Drug Use: No ED ROS GENERAL - Review of Systems Review Of Systems: ROS reveals no pertinent complaints other than HPI. ED EXAM, GENERAL - Physical Exam Exam: See Below Course - Vital Signs Last Recorded V/S: Last Vital Signs Temp 36.3 C 12/12/16 17:17 Pulse 91 12/12/16 17:17 Resp 18 12/12/16 17:17 BP 156/110 H 12/12/16 17:17 Pulse Ox 94 L 12/12/16 17:17 Departure - Departure Time of Disposition: 18:05 Disposition: Home, Self-Care 01 Condition: Good Clinical Impression: Hypertension Qualifiers: Hypertension type: essential hypertension Qualified Code(s): I10 - Essential ( primary) hypertension - Discharge Information Forms: ED Department Discharge Additional Instructions: You may want to follow-up with your doctor and have them check your blood pressure in the clinic to make sure that it is being controlled well.
== END 2016-12-12 18:15 | disposition home or self-care (01) ==
LOC: JP.ED 16:19
DX: I10 Essential (primary) hypertension (principal); E78.00 Pure hypercholesterolemia, unspecified; E11.9 Type 2 diabetes mellitus without complications; E03.9 Hypothyroidism, unspecified; I35.0 Nonrheumatic aortic (valve) stenosis; Z98.890 Other specified postprocedural states; Z86.2 Personal history of diseases of the blood and blood-forming organs and certain disorders involving the immune mechanism; Z79.82 Long term (current) use of aspirin; Z79.899 Other long term (current) drug therapy; Z88.1 Allergy status to other antibiotic agents; Z88.8 Allergy status to other drugs, medicaments and biological substances; Z85.819 Personal history of malignant neoplasm of unspecified site of lip, oral cavity, and pharynx
CPT/HCPCS: 99283

== ENCOUNTER 2017-08-23 17:10 | Emergency (ER) | payer MEDICARE, BC ==
[2017-08-23] MEDS ORDERED: Sodium Chloride 0.9% 10 ML Syringe FLUSH PRN (18:11)
--- NOTE | 2017-08-23 18:22 | EDM.PDOC ---
ED HPI GENERAL MEDICAL PROBLEM - General Chief Complaint: General Stated Complaint: NOT FEELING WELL Time Seen by Provider: 08/23/17 18:05 Source of Information: Reports: Patient, Family, Old Records, RN History Limitations: Reports: No Limitations - History of Present Illness INITIAL COMMENTS - FREE TEXT/NARRATIVE: 82 yo male is brought in by his for 2 weeks of increased confusion, intermittent slurred speech, intermittent R facial droop, and more ataxia. Sx's seem to follow a fall with head injury. Was seen in the clinic after the fall, but refused testing. Has not had fever, vomiting, or CP. Has a recent onset of a resting tremor. Is taking all his meds as prescribed per , but his systolic BP is running about 100 pts higher than usual. Has a heart valve placed at [facility] a few yrs ago. not aware of any carotid studies. Onset Date: 08/09/17 Duration: Week(s):, Getting Worse Location: Reports: Head, Generalized Quality: Reports: Other (no pain reported.) Severity: Moderate Improves with: Reports: None Worsens with: Reports: Other (? time) Context: Reports: Trauma (? due to his fall) Associated Symptoms: Reports: Confusion, Weakness. Denies: Chest Pain, Cough, Diaphoresis, Fever/Chills, Headaches, Loss of Appetite, Malaise, Nausea/Vomiting , Seizure, Shortness of Breath Treatments G[employer]MENT [employer]M [employer]ER: Reports: Other (see below) (none) - Related Data Allergies Allergy/AdvReac Type Severity Reaction Status Date / Time amoxicillin [From Augmentin] AdvReac Diarrhea Verified 08/23/17 17:36 atorvastatin calcium AdvReac Muscle Verified 08/23/17 17:36 [From Lipitor] Aches clavulanic acid AdvReac Diarrhea Verified 08/23/17 17:36 [From Augmentin] Home Meds: Home Meds Allopurinol [Zyloprim] 300 mg PO DAILY 09/30/13 [History] Aspirin [Leighton Chewable Aspirin] 81 mg PO DAILY 09/30/13 [History] Rosuvastatin [Crestor] 10 mg PO DAILY 09/30/13 [History] Pindolol 5 mg PO BID 07/20/16 [History] Clopidogrel [Plavix] 75 mg PO DAILY 12/05/16 [History] Levothyroxine 25 mcg PO DAILY 12/05/16 [History] Magnesium Oxide [Magnesium] 400 mg PO BID 12/05/16 [History] Valsartan 160 mg PO DAILY 12/05/16 [History] Past Medical History HEENT History: Reports: Hard of Hearing, Impaired Vision Cardiovascular History: Reports: High Cholesterol, Hypertension Other Cardiovascular History: aortic stenosis Respiratory History: Reports: Bronchitis, Recurrent, Pneumonia, Recurrent Gastrointestinal History: Reports: Other (See Below) Other Gastrointestinal History: stats has slight ter in large intestine after having CT scan 2 weeks ago Genitourinary History: Reports: BPH Musculoskeletal History: Reports: Gout Endocrine/Metabolic History: Reports: Diabetes, Type II, Hypothyroidism Hematologic History: Reports: Idiopathic Thrombocytopenia Oncologic (Cancer) History: Reports: Other (See Below) Other Oncologic History: 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 Dermatologic History: Reports: Melanoma Other Dermatologic History: back - Infectious Disease History Infectious Disease History: Reports: Chicken Pox, Shingles - Past Surgical History Respiratory Surgical History: Reports: Thoracotomy Social & Family History - Family History Family Medical History: Noncontributory - Tobacco Use Smoking Status *Q: Never Smoker Second Hand Smoke Exposure: No - Caffeine Use Caffeine Use: Reports: Coffee Other Caffeine Use: 3 cups coffee per day - Alcohol Use Days Per Week of Alcohol Use: 3 Number of Drinks Per Day: 2 Total Drinks Per Week: 6 - Recreational Drug Use Recreational Drug Use: No ED ROS GENERAL - Review of Systems Review Of Systems: See Below Constitutional: Reports: Weakness HEENT: Reports: No Symptoms Respiratory: Reports: No Symptoms Cardiovascular: Reports: No Symptoms Endocrine: Reports: No Symptoms GI/Abdominal: Reports: No Symptoms : Reports: No Symptoms Musculoskeletal: Reports: No Symptoms Skin: Reports: No Symptoms Neurological: Reports: Confusion, Tremors (hands bilat.), Trouble Speaking ( intermittent slurred speech), Gait Disturbance (more unsteady with walking). Denies: Headache, Numbness, Seizure, Syncope Psychiatric: Reports: Confusion (mild, new in last 2 weeks.) Hematologic/Lymphatic: Reports: No Symptoms ED EXAM, GENERAL - Physical Exam Exam: See Below Exam Limited By: No Limitations General Appearance: Alert, WD/WN, No Apparent Distress Eye Exam: Bilateral Eye: EOMI, Normal Inspection, PERRL Ears: Normal External Exam, Normal Canal, Hearing Grossly Normal, Normal TMs Ear Exam: Bilateral Ear: Auricle Normal, Canal Normal, TM normal Nose: Normal Inspection, Normal Mucosa, No Blood Throat/Mouth: Normal Inspection, Normal Lips, Normal Oropharynx, Normal Voice, No Airway Compromise Head: Atraumatic, Normocephalic Neck: Normal Inspection, Supple, Non-Tender, Full Range of Motion Respiratory/Chest: No Respiratory Distress, Lungs Clear, Normal Breath Sounds, No Accessory Muscle Use Cardiovascular: Regular Rate, Rhythm, No Edema GI/Abdominal: Normal Bowel Sounds, Soft, Non-Tender, No Distention Extremities: Normal Inspection, Normal Range of Motion, Non-Tender, No Pedal Edema Neurological: Alert, CN II-XII Intact, No Motor/Sensory Deficits, Disoriented ( mildly), Slow to Respond (some trouble with following commands). No: Sensory/ Motor Deficit Psychiatric: Normal Affect, Normal Mood Skin Exam: Warm, Dry, Intact, Normal Color, No Rash Lymphatic: No Adenopathy EKG INTERPRETATION EKG Date: 08/23/17 Time: 19:05 Rhythm: NSR Rate (Beats/Min): 102 [place]: Normal P-Wave: Present QRS: Normal ST-T: Normal QT: Normal Comparison: No Change Course - Vital Signs Last Recorded V/S: Last Vital Signs Temp 37.0 C 08/23/17 19:14 Pulse 102 H 08/23/17 19:14 Resp 25 H 08/23/17 19:14 BP 207/92 H 08/23/17 19:14 Pulse Ox 91 L 08/23/17 19:14 - Orders/Labs/Meds Orders: Active Orders 24 hr Category Date Time Status EKG Documentation Completion [] ASDIRECTED Care 08/23/17 18:56 Active Oxygen Therapy Adult [Oxygen Therapy, ED] [] Care 08/23/17 19:03 Active ASDIRECTED Head wo Cont [CT] Stat Exams 08/23/17 18:12 Taken UA W/MICROSCOPIC [URIN] Stat Lab 08/23/17 18:13 Ordered Diltiazem [Cardizem] 100 mg Med 08/23/17 19:30 Active Sodium Chloride 0.9% [Normal Saline] 100 ml IV TITRATE Sodium Chloride 0.9% [Normal Saline] 1,000 ml Med 08/23/17 19:00 Active IV ASDIRECTED Sodium Chloride 0.9% [Saline Flush] Med 08/23/17 18:11 Active 10 ml FLUSH ASDIRECTED PRN Saline Lock Insert [OM.PC] Routine Oth 08/23/17 18:11 Ordered EKG 12 Lead [EK] Routine Ther 08/23/17 18:56 Ordered Medication Orders Sodium Chloride (Normal Saline) 1,000 mls @ 100 mls/hr IV ASDIRECTED [place]ISON Diltiazem HCl 100 mg/ Sodium (Chloride) 100 mls @ 5 mls/hr IV TITRATE [place]; 5 MG /HR PRN Reason: Protocol Sodium Chloride (Saline Flush) 10 ml FLUSH ASDIRECTED PRN PRN Reason: Keep Vein Open Labs: Laboratory Tests 08/23/17 08/23/17 08/23/17 Range/Units 18:27 18:27 18:49 WBC 13.8 H (4.5-11.0) K/uL RBC 4.51 (4.30-5.90) M/uL Hgb 13.5 D (12.0-15.0) g/dL Hct 41.2 (40.0-54.0) % MCV 91 (80-98) fL MCH 30 (27-31) pg MCHC 33 (32-36) % Plt Count 157 (150-400) K/uL Sodium 134 L (140-148) mmol/L Potassium 5.0 (3.6-5.2) mmol/L Chloride 98 L (100-108) mmol/L Carbon Dioxide 28 (21-32) mmol/L Anion Gap 13.0 (5.0-14.0) mmol/L BUN 17 (7-18) mg/dL Creatinine 1.0 (0.8-1.3) mg/dL Est Cr Clr Drug Dosing 56.78 mL/min Estimated GFR (MDRD) > 60 (>60) Glucose 107 H (74-106) mg/dL Calcium 9.3 (8.5-10.1) mg/dL Troponin I 0.077 H* (0.000-0.056) ng/mL C-Reactive Protein 4.19 H (0.0-0.3) mg/dL Meds: Medications Generic Name Dose Route Start Last Admin Trade Name Freq PRN Reason Stop Dose Admin Sodium Chloride 1,000 mls @ 100 mls/hr 08/23/17 19:00 Normal Saline IV ASDIRECTED MADISON Diltiazem HCl 100 mg/ Sodium 100 mls @ 5 mls/hr 08/23/17 19:30 Chloride IV TITRATE M[place]ISON Protocol 5 MG/HR Sodium Chloride 10 ml 08/23/17 18:11 Saline Flush FLUSH ASDIRECTED PRN Keep Vein Open - Radiology Interpretation Free Text/Narrative:: moderate sized L subdural hematoma seen on head CT, some midline shift. Some old and some more acute components. CT Results Date: 08/23/17 Departure - Departure Time of Disposition: 19:35 Disposition: DC/Tfer to Acute Hospital 02 Condition: Poor Clinical Impression: Subdural hematoma HTN (hypertension) Qualifiers: Hypertension type: essential hypertension Qualified Code(s): I10 - Essential ( primary) hypertension - Discharge Information Referrals: Francisco Cheng MD [Primary Care Provider] - Forms: ED Department Discharge - My Orders Last 24 Hours: My Active Orders 08/23/17 18:11 Sodium Chloride 0.9% [Saline Flush] 10 ml FLUSH ASDIRECTED PRN Saline Lock Insert [OM.PC] Routine 08/23/17 18:12 Head wo Cont [CT] Stat 08/23/17 18:13 UA W/MICROSCOPIC [URIN] Stat 08/23/17 18:56 EKG Documentation Completion [RC] ASDIRECTED EKG 12 Lead [EK] Routine 08/23/17 19:00 Sodium Chloride 0.9% [Normal Saline] 1,000 ml IV ASDIRECTED 08/23/17 19:03 Oxygen Therapy Adult [Oxygen Therapy, ED] [RC] ASDIRECTED 08/23/17 19:30 Diltiazem [Cardizem] 100 mg Sodium Chloride 0.9% [Normal Saline] 100 ml IV TITRATE - Assessment/Plan Last 24 Hours: My Active Orders 08/23/17 18:11 Sodium Chloride 0.9% [Saline Flush] 10 ml FLUSH ASDIRECTED PRN Saline Lock Insert [OM.PC] Routine 08/23/17 18:12 Head wo Cont [CT] Stat 08/23/17 18:13 UA W/MICROSCOPIC [URIN] Stat 08/23/17 18:56 EKG Documentation Completion [RC] ASDIRECTED EKG 12 Lead [EK] Routine 08/23/17 19:00 Sodium Chloride 0.9% [Normal Saline] 1,000 ml IV ASDIRECTED 08/23/17 19:03 Oxygen Therapy Adult [Oxygen Therapy, ED] [RC] ASDIRECTED 08/23/17 19:30 Diltiazem [Cardizem] 100 mg Sodium Chloride 0.9% [Normal Saline] 100 ml IV TITRATE
[2017-08-23] MEDS ORDERED: Sodium Chloride 0.9% 1,000 ML IV SCH (19:00)
[2017-08-23] MEDS ORDERED: Diltiazem 100 MG in Sodium Chloride 0.9% 100 ML IV SCH (19:30)
[2017-08-23] MEDS ORDERED: niCARdipine HCl 25 MG in Sodium Chloride 0.9% 240 ML IV SCH (20:00)
[2017-08-23 20:50] VITALS: BP 136/54
== END 2017-08-23 21:15 ==
LOC: JP.ED 17:10
DX: S06.5X9A Traumatic subdural hemorrhage with loss of consciousness of unspecified duration, initial encounter (principal); I10 Essential (primary) hypertension; E78.00 Pure hypercholesterolemia, unspecified; E03.9 Hypothyroidism, unspecified; E11.9 Type 2 diabetes mellitus without complications; Z88.1 Allergy status to other antibiotic agents; Z88.8 Allergy status to other drugs, medicaments and biological substances; Z79.82 Long term (current) use of aspirin; Z79.899 Other long term (current) drug therapy; Z79.01 Long term (current) use of anticoagulants; W19.XXXA Unspecified fall, initial encounter; Z95.5 Presence of coronary angioplasty implant and graft; Z87.01 Personal history of pneumonia (recurrent)
CPT/HCPCS: 36415; 70450; 80048; 84484; 85027; 86140; 93005; 96365; 96375; 99285; J3490; J7030; J7040; J7050

== ENCOUNTER 2017-09-06 14:28 | Emergency (ER) | payer MEDICARE, BC ==
--- NOTE | 2017-09-06 15:20 | EDM.PDOC ---
ED HPI GENERAL MEDICAL PROBLEM - General Chief Complaint: Respiratory Problem Stated Complaint: MEDICAL VIA [facility] Time Seen by Provider: 09/06/17 15:04 Source of Information: Reports: Patient, Family, Old Records, RN Notes Reviewed History Limitations: Reports: No Limitations - History of Present Illness INITIAL COMMENTS - FREE TEXT/NARRATIVE: 82-year-old gentleman presents to the emergency department today via EMS services, complicated history recently had a hematoma status post evacuation event approximately 2 weeks at [facility]. Was discharged yesterday has difficulty swallowing and is prone to aspiration pneumonia, therefore he has a feeding tube in place. Was found by custodial staff this morning to be hypoxic mid to upper 80, oxygen via nasal cannula was placed however following return check on patient oxygen had been removed with oxygen saturation now in the low 80s. EMS services were called for further evaluation. At this time he states is doing well he does not normally use oxygen he denies any recent fevers in any shortness of breath beyond baseline no chest pain no or GI symptomatology - Related Data Allergies Allergy/AdvReac Type Severity Reaction Status Date / Time amoxicillin [From Augmentin] AdvReac Diarrhea Verified 09/06/17 14:55 atorvastatin calcium AdvReac Muscle Verified 09/06/17 14:55 [From Lipitor] Aches clavulanic acid AdvReac Diarrhea Verified 09/06/17 14:55 [From Augmentin] Home Meds: Home Meds Allopurinol [Zyloprim] 300 mg PO DAILY 09/30/13 [History] Aspirin [Leighton Chewable Aspirin] 81 mg PO DAILY 09/30/13 [History] Rosuvastatin [Crestor] 10 mg PO DAILY 09/30/13 [History] Pindolol 5 mg PO BID 07/20/16 [History] Clopidogrel [Plavix] 75 mg PO DAILY 12/05/16 [History] Levothyroxine 25 mcg PO DAILY 12/05/16 [History] Magnesium Oxide [Magnesium] 400 mg PO BID 12/05/16 [History] Valsartan 160 mg PO DAILY 12/05/16 [History] Past Medical History HEENT History: Reports: Hard of Hearing, Impaired Vision Cardiovascular History: Reports: High Cholesterol, Hypertension Other Cardiovascular History: aortic stenosis Respiratory History: Reports: Bronchitis, Recurrent, Pneumonia, Recurrent Gastrointestinal History: Reports: Other (See Below) Other Gastrointestinal History: stats has slight ter in large intestine after having CT scan 2 weeks ago Genitourinary History: Reports: BPH Musculoskeletal History: Reports: Gout Neurological History: Reports: Head Trauma, Other (See Below) (Subdural hematoma status post evacuation) Endocrine/Metabolic History: Reports: Diabetes, Type II, Hypothyroidism Hematologic History: Reports: Idiopathic Thrombocytopenia Oncologic (Cancer) History: Reports: Other (See Below) Other Oncologic History: 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 Dermatologic History: Reports: Melanoma Other Dermatologic History: back - Infectious Disease History Infectious Disease History: Reports: Chicken Pox, Shingles - Past Surgical History Respiratory Surgical History: Reports: Thoracotomy Social & Family History - Family History Family Medical History: Noncontributory - Tobacco Use Smoking Status *Q: Never Smoker Second Hand Smoke Exposure: No - Caffeine Use Caffeine Use: Reports: Coffee Other Caffeine Use: 3 cups coffee per day - Alcohol Use Days Per Week of Alcohol Use: 3 Number of Drinks Per Day: 2 Total Drinks Per Week: 6 - Recreational Drug Use Recreational Drug Use: No ED ROS GENERAL - Review of Systems Review Of Systems: See Below Constitutional: Reports: No Symptoms HEENT: Reports: No Symptoms Respiratory: Reports: Shortness of Breath (Not beyond baseline), Other (Hypoxic at the custodial) Cardiovascular: Reports: No Symptoms GI/Abdominal: Reports: No Symptoms : Reports: No Symptoms Musculoskeletal: Reports: No Symptoms Skin: Reports: No Symptoms Neurological: Reports: No Symptoms ED EXAM, GENERAL - Physical Exam Exam: See Below Free Text/Narrative:: General: Male, not in any distress, audible upper respiratory rhonchi, alert and oriented x3 HEENT: head is atraumatic normocephalic, eyes pupils equal round reactive to light, sclera clear no conjunctivitis appreciated. Ears tympanic membranes clear and perez landmarks and light reflex are present bilaterally canals are clear. Nose no septal deviation, nares are clear, no blood present. Mouth mucosa is moist and pink no erythema or exudate noted in soft palate, tongue is midline uvula is midline, dentures in place. Neck: Supple no thyromegaly no tracheal deviation. Nodes: Cervical nodes subclavicular nodes nontender no palpable lymphadenopathy noted. Lungs: Rhonchi radiating throughout all lung larios difficult to appreciate any breath sounds CV: Upper airway rhonchi difficult to appreciate heart sounds Abdomen: Soft, nontender, no palpable masses or organomegaly appreciated, no distention no guarding bowel sounds are present, . Neuro: Cranial nerves II through XII grossly intact Skin: Warm and dry, intact Extremities: No lower extremity edema appreciated, Course - Vital Signs Last Recorded V/S: Last Vital Signs Temp 99.7 F 09/06/17 15:01 Pulse 83 09/06/17 15:55 Resp 14 09/06/17 15:55 BP 130/54 L 09/06/17 15:55 Pulse Ox 95 09/06/17 15:55 - Orders/Labs/Meds Orders: Active Orders 24 hr Category Date Time Status Chest 1V Frontal [CR] Urgent Exams 09/06/17 15:14 Taken Labs: Laboratory Tests 09/06/17 09/06/17 Range/Units 15:40 15:40 WBC 11.0 (4.5-11.0) K/uL RBC 3.18 L (4.30-5.90) M/uL Hgb 9.6 L D (12.0-15.0) g/dL Hct 29.4 L (40.0-54.0) % MCV 93 (80-98) fL MCH 30 (27-31) pg MCHC 33 (32-36) % Plt Count 202 (150-400) K/uL Neut % (Auto) 86 H (36-66) % Lymph % (Auto) 5 L (24-44) % Hawkins % (Auto) 9 H (2-6) % Eos % (Auto) 1 L (2-4) % Baso % (Auto) 0 (0-1) % Sodium 136 L (140-148) mmol/L Potassium 4.0 (3.6-5.2) mmol/L Chloride 100 (100-108) mmol/L Carbon Dioxide 28 (21-32) mmol/L Anion Gap 12.0 (5.0-14.0) mmol/L BUN 27 H D (7-18) mg/dL Creatinine 1.1 (0.8-1.3) mg/dL Est Cr Clr Drug Dosing 49.99 mL/min Estimated GFR (MDRD) > 60 (>60) Glucose 129 H (74-106) mg/dL Calcium 8.7 (8.5-10.1) mg/dL Departure - Departure Time of Disposition: 16:13 Disposition: Home, Self-Care 01 Condition: Fair Clinical Impression: Hypoxic episode - Discharge Information Referrals: Francisco Cheng MD [Primary Care Provider] - Forms: ED Department Discharge Additional Instructions: Recommendations oxygen while sleeping, Please followup with your primary care provider in 3-5 days if not better, please call return to the emergency department with worsening of symptoms. - My Orders Last 24 Hours: My Active Orders 09/06/17 15:14 Chest 1V Frontal [CR] Urgent - Assessment/Plan Last 24 Hours: My Active Orders 09/06/17 15:14 Chest 1V Frontal [CR] Urgent Plan: Assessment Acuity = acute Site and laterality = hypoxic event complicated in a gentleman with recent subdural hematoma status post evacuation with swallowing dysfunction Etiology = suspicious for mucous plug Manifestations = none Location of injury = Home Lab values = CBC reveals hemoglobin 9.6 consistent normochromic anemia, BMP unremarkable, chest x-ray I did review films myself I cannot appreciate any acute process, the official read from radiology is pending Plan I did revie x-rays and lab results with him he was turned off soon after arrival he is 90 to 92% while awake however did drop down to 88% while sleeping , recommend O2 saturation while sleeping and encourage cough follow-up with primary care 3-5 days if no improvement This note was dictated using [employer] voice recognition software please call with any questions on syntax or helen.
[2017-09-06 15:56] VITALS: BP 130/54
--- NOTE | 2017-09-08 09:15 | CR ---
Chest 1V Frontal INDICATION: hypoxic FINDINGS: Comparison 03/27/2017. Shallow inspiration. Interval worsening of bibasilar infiltrate or a telectasis, greater on the left since prior exam. Pneumonia is not excluded. Aortic calcification. Ex am otherwise unremarkable.
== END 2017-09-06 17:18 | disposition home or self-care (01) ==
LOC: JP.ED 14:28
DX: R09.02 Hypoxemia (principal); E78.00 Pure hypercholesterolemia, unspecified; I10 Essential (primary) hypertension; E11.9 Type 2 diabetes mellitus without complications; E03.9 Hypothyroidism, unspecified; Z88.1 Allergy status to other antibiotic agents; Z88.8 Allergy status to other drugs, medicaments and biological substances; Z79.82 Long term (current) use of aspirin; Z79.899 Other long term (current) drug therapy
CPT/HCPCS: 36415; 71045; 71045-26; 80048; 85025; 99284

== ENCOUNTER 2017-09-14 20:59 | Emergency (ER) | payer MEDICARE, BC ==
[2017-09-14 21:09] VITALS: BP 171/67
--- NOTE | 2017-09-14 21:32 | EDM.PDOC ---
ED HPI GENERAL MEDICAL PROBLEM - General Chief Complaint: General Stated Complaint: ILLNESS Time Seen by Provider: 09/14/17 21:26 Source of Information: Reports: Longterm Records History Limitations: Reports: No Limitations - History of Present Illness INITIAL COMMENTS - FREE TEXT/NARRATIVE: This [facility] gastrostomy tube. The head attempted reinserted and there was just a little bit of bleeding and so they were requesting that we did a do a Gastroccult. Otherwise the patient's doing well Denies Pain Score (Numeric/FACES): 0 - Related Data Allergies Allergy/AdvReac Type Severity Reaction Status Date / Time amoxicillin [From Augmentin] AdvReac Diarrhea Verified 09/25/17 00:00 atorvastatin calcium AdvReac Muscle Verified 09/25/17 00:00 [From Lipitor] Aches clavulanic acid AdvReac Diarrhea Verified 09/25/17 00:00 [From Augmentin] Home Meds: Home Meds Allopurinol [Zyloprim] 300 mg GTUBE DAILY 09/30/13 [History] Rosuvastatin [Crestor] 10 mg GTUBE BEDTIME 09/30/13 [History] Magnesium Oxide [Magnesium] 400 mg GTUBE DAILY 12/05/16 [History] Albuterol Sulfate [Proair Hfa] 1 puff IH Q6H PRN 09/21/17 [History] D3/E/Se/Soy Isofl/Tocoph/Lycop [Prostate 2.4] 1 oz PO TID 09/21/17 [History] Ferrous Sulfate [Ferosul] 220 mg GTUBE BID 09/21/17 [History] Fluticasone Propionate [Flonase] 2 spray NS ASDIRECTED 09/21/17 [History] amLODIPine [Norvasc] 10 mg GTUBE DAILY 09/21/17 [History] levETIRAcetam [Keppra] 7.5 ml GTUBE Q12H 09/21/17 [History] Aspirin 1 tab GTUBE DAILY #0 09/28/17 [Rx] Cholecalciferol (Vitamin D3) [Vitamin D3] 50,000 units GTUBE WEEKLY #0 09/28/17 [Rx] Levothyroxine 25 mcg GTUBE DAILY #0 09/28/17 [Rx] Loperamide [Imodium] 2 mg FTUBE Q4H PRN #30 cup 04/29/18 [Rx] Pindolol 5 mg GTUBE BID #0 09/28/17 [Rx] Rosuvastatin [Crestor] 10 mg GTUBE BEDTIME #0 09/28/17 [Rx] Valsartan 160 mg GTUBE DAILY #0 09/28/17 [Rx] Past Medical History HEENT History: Reports: Hard of Hearing, Impaired Vision Cardiovascular History: Reports: High Cholesterol, Hypertension Other Cardiovascular History: aortic stenosis Respiratory History: Reports: Bronchitis, Recurrent, Pneumonia, Recurrent Gastrointestinal History: Reports: Other (See Below) Other Gastrointestinal History: stats has slight ter in large intestine after having CT scan 2 weeks ago, presently on tube feedings Genitourinary History: Reports: BPH Musculoskeletal History: Reports: Gout Neurological History: Reports: Head Trauma, Other (See Below) Endocrine/Metabolic History: Reports: Diabetes, Type II, Hypothyroidism Hematologic History: Reports: Idiopathic Thrombocytopenia Oncologic (Cancer) History: Reports: Other (See Below) Other Oncologic History: 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 Dermatologic History: Reports: Melanoma Other Dermatologic History: back - Infectious Disease History Infectious Disease History: Reports: Chicken Pox, Shingles - Past Surgical History Respiratory Surgical History: Reports: Thoracotomy Social & Family History - Family History Family Medical History: Noncontributory - Tobacco Use Smoking Status *Q: Never Smoker Second Hand Smoke Exposure: No - Caffeine Use Caffeine Use: Reports: Coffee Other Caffeine Use: 3 cups coffee per day - Alcohol Use Days Per Week of Alcohol Use: 3 Number of Drinks Per Day: 2 Total Drinks Per Week: 6 - Recreational Drug Use Recreational Drug Use: No ED ROS GENERAL - Review of Systems Review Of Systems: ROS reveals no pertinent complaints other than HPI. ED EXAM, GENERAL - Physical Exam Exam: See Below Exam Limited By: No Limitations General Appearance: Alert Respiratory/Chest: No Respiratory Distress Cardiovascular: Normal Peripheral Pulses GI/Abdominal: Soft, Non-Tender, No Distention Course - Vital Signs Last Recorded V/S: Last Vital Signs Temp 35.5 C 09/14/17 21:04 Pulse 80 09/14/17 21:04 Resp 20 09/14/17 21:04 BP 171/67 H 09/14/17 21:04 Pulse Ox 97 09/14/17 21:04 - Re-Assessments/Exams Free Text/Narrative Re-Assessment/Exam: 10/03/17 07:07 Gastrostomy tube was reinserted without any difficulty. Gastric lavage was done there was no evidence of bleeding. Gastroccult was not indicated Departure - Departure Time of Disposition: 21:30 Disposition: DC/Tfer to SNF 03 Condition: Fair Clinical Impression: Problem with gastrostomy tube - Discharge Information Instructions: Care of a Feeding Tube, [id number] Referrals: Francisco Cheng MD [Primary Care Provider] - Forms: ED Department Discharge Additional Instructions: The tube was reinserted and gastric lavage was done and there is no evidence of any bleeding. Gastrocult was not done since it would not give useful information and we've already been told there was a little bit of blood present so the Gastroccult would be expected to sweet pickle maker at least a trace of blood. There was no visible blood seen on gastric lavage. Resume normal gastrostomy tube care.
== END 2017-09-14 21:45 ==
LOC: JP.ED 20:59
DX: Z43.1 Encounter for attention to gastrostomy (principal); E78.00 Pure hypercholesterolemia, unspecified; I10 Essential (primary) hypertension; E11.9 Type 2 diabetes mellitus without complications; E03.9 Hypothyroidism, unspecified; Z88.1 Allergy status to other antibiotic agents; Z88.8 Allergy status to other drugs, medicaments and biological substances; Z79.899 Other long term (current) drug therapy
CPT/HCPCS: 99284

== ENCOUNTER 2017-09-21 18:31 | Emergency (ER) | payer MEDICARE, BC ==
--- NOTE | 2017-09-21 19:13 | EDM.PDOC ---
ED HPI GENERAL MEDICAL PROBLEM - General Chief Complaint: Respiratory Problem Stated Complaint: MED VIA [facility] Time Seen by Provider: 09/21/17 19:04 Source of Information: Reports: Patient, Family, RN Notes Reviewed History Limitations: Reports: No Limitations - History of Present Illness INITIAL COMMENTS - FREE TEXT/NARRATIVE: 82-year-old gentleman known history of subdural hematoma as well as history of aspiration pneumonia secondary to dysphagia presents to emergency department today with fever and episodes of confusion. At this time the interview states he is doing about fair his is present does state that he answers in single words seems bit off today, he denies any symptomology Recently completed a course of Levaquin and steroids for aspiration pneumonia - Related Data Allergies Allergy/AdvReac Type Severity Reaction Status Date / Time amoxicillin [From Augmentin] AdvReac Diarrhea Verified 09/14/17 21:24 atorvastatin calcium AdvReac Muscle Verified 09/14/17 21:24 [From Lipitor] Aches clavulanic acid AdvReac Diarrhea Verified 09/14/17 21:24 [From Augmentin] Home Meds: Home Meds Allopurinol [Zyloprim] 300 mg PO DAILY 09/30/13 [History] Rosuvastatin [Crestor] 10 mg PO DAILY 09/30/13 [History] Levothyroxine 25 mcg PO DAILY 12/05/16 [History] Magnesium Oxide [Magnesium] 400 mg PO BID 12/05/16 [History] Valsartan 160 mg PO DAILY 12/05/16 [History] Albuterol Sulfate [Proair Hfa] 1 puff IH Q6H PRN 09/21/17 [History] D3/E/Se/Soy Isofl/Tocoph/Lycop [Prostate 2.4] 1 oz PO TID 09/21/17 [History] Ferrous Sulfate [Ferosul] 220 mg PO BID 09/21/17 [History] Fluticasone Propionate [Flonase] 2 spray NS ASDIRECTED 09/21/17 [History] Pindolol 5 mg PO BID 09/21/17 [History] amLODIPine [Norvasc] 10 mg PO DAILY 09/21/17 [History] levETIRAcetam [Keppra] 7.5 ml PO BID 09/21/17 [History] Past Medical History HEENT History: Reports: Hard of Hearing, Impaired Vision Cardiovascular History: Reports: High Cholesterol, Hypertension Other Cardiovascular History: aortic stenosis Respiratory History: Reports: Bronchitis, Recurrent, Pneumonia, Recurrent ( Aspiration) Gastrointestinal History: Reports: Other (See Below) Other Gastrointestinal History: stats has slight ter in large intestine after having CT scan 2 weeks ago, presently on tube feedings Genitourinary History: Reports: BPH Musculoskeletal History: Reports: Gout Neurological History: Reports: Head Trauma (Subdural hematoma secondary to a fall) Endocrine/Metabolic History: Reports: Diabetes, Type II, Hypothyroidism Hematologic History: Reports: Idiopathic Thrombocytopenia Oncologic (Cancer) History: Reports: Other (See Below) Other Oncologic History: 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 Dermatologic History: Reports: Melanoma Other Dermatologic History: back - Infectious Disease History Infectious Disease History: Reports: Chicken Pox, Measles, Mumps - Past Surgical History Respiratory Surgical History: Reports: Thoracotomy Social & Family History - Family History Family Medical History: Noncontributory - Tobacco Use Smoking Status *Q: Never Smoker Second Hand Smoke Exposure: No - Caffeine Use Caffeine Use: Reports: Coffee Other Caffeine Use: 3 cups coffee per day - Alcohol Use Days Per Week of Alcohol Use: 3 Number of Drinks Per Day: 2 Total Drinks Per Week: 6 - Recreational Drug Use Recreational Drug Use: No ED ROS GENERAL - Review of Systems Review Of Systems: See Below Constitutional: Reports: Fever HEENT: Reports: No Symptoms Respiratory: Reports: No Symptoms Cardiovascular: Reports: No Symptoms GI/Abdominal: Reports: No Symptoms : Reports: No Symptoms Musculoskeletal: Reports: No Symptoms Skin: Reports: No Symptoms Neurological: Reports: No Symptoms ED EXAM, GENERAL - Physical Exam Exam: See Below Free Text/Narrative:: General: Male, not in any distress, audible gurgling upper airways, (not new), alert and oriented x3 HEENT: head is atraumatic normocephalic, eyes pupils equal round reactive to light, sclera clear no conjunctivitis appreciated. Ears blocked by cerumen bilaterally. Nose no septal deviation, nares are clear, no blood present. Mouth mucosa is moist and pink no erythema or exudate noted in soft palate, tongue is midline uvula is midline, dentition is intact. Neck: Supple no thyromegaly no tracheal deviation. Nodes: Cervical nodes subclavicular nodes nontender no palpable lymphadenopathy noted. Lungs: Lower breath sounds are clear however upper airway rhonchi radiating to lower lung larios are appreciated CV: Regular rate and rhythm S1 and S2 appreciated no murmurs rubs or gallops noted. Abdomen: Soft, nontender, no palpable masses or organomegaly appreciated, no distention no guarding bowel sounds are present, . Neuro: Cranial nerves II through XII grossly intact crawford 5 x 5 upper and lower extremities Skin: Warm and dry, intact Extremities: JACKIE hose in place Course - Vital Signs Last Recorded V/S: Last Vital Signs Temp 100.2 F 09/21/17 18:38 Pulse 91 09/21/17 21:08 Resp 21 H 09/21/17 21:08 BP 119/51 L 09/21/17 21:08 Pulse Ox 94 L 09/21/17 21:08 - Orders/Labs/Meds Orders: Active Orders 24 hr Category Date Time Status Vital Signs [RC] Q1H Care 09/21/17 19:08 Active Chest 1V Frontal [CR] Stat Exams 09/21/17 19:09 Taken UA W/MICROSCOPIC [URIN] Urgent Lab 09/21/17 19:08 Ordered Blood Culture x2 Reflex Set [OM.PC] Urgent Oth 09/21/17 19:08 Ordered Labs: Laboratory Tests 09/21/17 09/21/17 09/21/17 Range/Units 19:20 19:20 19:20 WBC 16.5 H (4.5-11.0) K/uL RBC 2.90 L (4.30-5.90) M/uL Hgb 8.6 L (12.0-15.0) g/dL Hct 27.2 L (40.0-54.0) % MCV 94 (80-98) fL MCH 30 (27-31) pg MCHC 32 (32-36) % Plt Count 157 (150-400) K/uL Neut % (Auto) 91 H (36-66) % Lymph % (Auto) 4 L (24-44) % [place] % (Auto) 4 (2-6) % Eos % (Auto) 0 L (2-4) % Baso % (Auto) 0 (0-1) % Sodium 133 L (140-148) mmol/L Potassium 4.2 (3.6-5.2) mmol/L Chloride 96 L (100-108) mmol/L Carbon Dioxide 30 (21-32) mmol/L Anion Gap 11.2 (5.0-14.0) mmol/L BUN 42 H (7-18) mg/dL Creatinine 1.3 (0.8-1.3) mg/dL Est Cr Clr Drug Dosing 42.30 mL/min Estimated GFR (MDRD) 53 L (>60) Glucose 141 H (74-106) mg/dL Lactic Acid 1.3 (0.4-2.0) mmol/L Calcium 8.1 L (8.5-10.1) mg/dL Total Bilirubin 0.9 D (0.2-1.0) mg/dL AST 41 H (15-37) U/L ALT 128 H (12-78) U/L Alkaline Phosphatase 89 (46-116) U/L C-Reactive Protein 5.76 H (0.0-0.3) mg/dL Total Protein 5.9 L (6.4-8.2) g/dL Albumin 2.7 L (3.4-5.0) g/dL Globulin 3.2 (2.3-3.5) g/dL Albumin/Globulin Ratio 0.8 L (1.2-2.2) Departure - Departure Time of Disposition: 21:33 Disposition: DC/Tfer to Radiology Supervisor [facility] Condition: Fair Clinical Impression: Dysphagia Qualifiers: Dysphagia type: pharyngoesophageal phase Qualified Code(s): R13.14 - Dysphagia , pharyngoesophageal phase - Discharge Information Referrals: Francisco Cheng MD [Primary Care Provider] - Forms: ED Department Discharge Additional Instructions: Please follow the plan of care from your dysphagia study, please follow-up with your primary care in the next 3-5 days for reevaluation, call return to the emergency department worsening of symptoms - My Orders Last 24 Hours: My Active Orders 09/21/17 19:08 Vital Signs [RC] Q1H UA W/MICROSCOPIC [URIN] Urgent Blood Culture x2 Reflex Set [OM.PC] Urgent 09/21/17 19:09 Chest 1V Frontal [CR] Stat - Assessment/Plan Last 24 Hours: My Active Orders 09/21/17 19:08 Vital Signs [RC] Q1H UA W/MICROSCOPIC [URIN] Urgent Blood Culture x2 Reflex Set [OM.PC] Urgent 09/21/17 19:09 Chest 1V Frontal [CR] Stat Plan: Assessment Acuity = acute Site and laterality = dysphagia Etiology = secondary to history of chemotherapy and radiation as well as recent head trauma Manifestations = risk for aspiration pneumonia Location of injury = Home Lab values = WBC elevated at 16.5 consistent leukocytosis probably related to recent prednisone use, hemoglobin low at 8.6 consistent with normochromic anemia sodium low at 133 consistent hyponatremia, lactic acid normal at 1.3 CRP mildly elevated at 5.76 of unclear etiology albumin low at 2.7 consistent hypoalbuminemia chest x-ray shows increased atelectasis versus infection in the bases probably related to recent aspiration pneumonia Plan I did review lab work chest x-ray results with him as well as recent swallow study which has several steps to help prevent aspiration my concern is the steps are not being followed at the shelter, he'll be discharged back to the shelter primary care in 3-5 days for reevaluation orders written to clinic here for dysphagia This note was dictated using [employer] voice recognition software please call with any questions on syntax or helen.
[2017-09-21 21:29] VITALS: BP 119/51
--- NOTE | 2017-09-22 09:53 | CR ---
Chest 1V Frontal HISTORY: fever FINDINGS: Portable chest, 1942 hours. There are infiltrates versus atelectasis lower left chest with elevation of left hemidiaphragm. Right lung is relatively clear with mild atelectasis or scarring right lung base. Heart size is within nor mal limits for the AP technique and stable. Atherosclerotic aorta is redemonstrated. No vascular redi stribution or pleural fluid is seen. Remainder the chest is stable. IMPRESSION: Possible developing infiltrates left lower chest. Elevation of left hemidiaphragm is note d.
== END 2017-09-21 21:56 ==
LOC: JP.ED 18:31
DX: R13.14 Dysphagia, pharyngoesophageal phase (principal); E78.00 Pure hypercholesterolemia, unspecified; I10 Essential (primary) hypertension; E03.9 Hypothyroidism, unspecified; E11.9 Type 2 diabetes mellitus without complications; Z88.1 Allergy status to other antibiotic agents; Z79.899 Other long term (current) drug therapy; Z87.01 Personal history of pneumonia (recurrent)
CPT/HCPCS: 36415; 71045; 71045-26; 80053; 83605; 85025; 86140; 99283; 99285

== ENCOUNTER 2017-09-24 23:21 | Inpatient (IN) | payer MEDICARE, BC ==
[2017-09-24] MEDS ORDERED: Sodium Chloride 0.9% 10 ML Syringe FLUSH PRN ×2 (23:46)
--- NOTE | 2017-09-24 23:52 | EDM.PDOC ---
ED HPI GENERAL MEDICAL PROBLEM - General Stated Complaint: MED[facility] Time Seen by Provider: 09/24/17 23:41 Source of Information: Reports: Family, Old Records, RN Notes Reviewed History Limitations: Reports: Respiratory Distress - History of Present Illness INITIAL COMMENTS - FREE TEXT/NARRATIVE: 82-year-old gentleman presents emergency department today in respiratory distress, he has a known history of subdural hematoma status post evacuation as well as dysphagia with a history of aspiration pneumonia. He was on a feeding tube however the feeding tube was recently stopped and now he's had difficulties with aspiration. Was evaluated in the emergency department by myself 2 days prior for possible aspiration chest x-ray shows possible infiltrate however he had just completed a course of Levaquin and steroids for possible aspiration. He presents emergency department today with severe hypoxia he is on CPAP at 8 L difficulty maintaining O2 saturation he is a full code - Related Data Allergies Allergy/AdvReac Type Severity Reaction Status Date / Time amoxicillin [From Augmentin] AdvReac Diarrhea Verified 09/25/17 00:00 atorvastatin calcium AdvReac Muscle Verified 09/25/17 00:00 [From Lipitor] Aches clavulanic acid AdvReac Diarrhea Verified 09/25/17 00:00 [From Augmentin] Home Meds: Home Meds Allopurinol [Zyloprim] 300 mg PO DAILY 09/30/13 [History] Rosuvastatin [Crestor] 10 mg PO DAILY 09/30/13 [History] Levothyroxine 25 mcg PO DAILY 12/05/16 [History] Magnesium Oxide [Magnesium] 400 mg PO BID 12/05/16 [History] Valsartan 160 mg PO DAILY 12/05/16 [History] Albuterol Sulfate [Proair Hfa] 1 puff IH Q6H PRN 09/21/17 [History] D3/E/Se/Soy Isofl/Tocoph/Lycop [Prostate 2.4] 1 oz PO TID 09/21/17 [History] Ferrous Sulfate [Ferosul] 220 mg PO BID 09/21/17 [History] Fluticasone Propionate [Flonase] 2 spray NS ASDIRECTED 09/21/17 [History] Pindolol 5 mg PO BID 09/21/17 [History] amLODIPine [Norvasc] 10 mg PO DAILY 09/21/17 [History] levETIRAcetam [Keppra] 7.5 ml PO BID 09/21/17 [History] Past Medical History HEENT History: Reports: Hard of Hearing, Impaired Vision Cardiovascular History: Reports: High Cholesterol, Hypertension Other Cardiovascular History: aortic stenosis Respiratory History: Reports: Bronchitis, Recurrent, Pneumonia, Recurrent ( Aspiration) Gastrointestinal History: Reports: Other (See Below) Other Gastrointestinal History: stats has slight ter in large intestine after having CT scan 2 weeks ago, presently on tube feedings Genitourinary History: Reports: BPH Musculoskeletal History: Reports: Gout Neurological History: Reports: Head Trauma (Subdural hematoma secondary to a fall) Endocrine/Metabolic History: Reports: Diabetes, Type II, Hypothyroidism Hematologic History: Reports: Idiopathic Thrombocytopenia Oncologic (Cancer) History: Reports: Other (See Below) Other Oncologic History: 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 Dermatologic History: Reports: Melanoma Other Dermatologic History: back - Infectious Disease History Infectious Disease History: Reports: Chicken Pox, Measles, Mumps - Past Surgical History Respiratory Surgical History: Reports: Thoracotomy Social & Family History - Family History Family Medical History: Noncontributory - Tobacco Use Smoking Status *Q: Never Smoker Second Hand Smoke Exposure: No - Caffeine Use Caffeine Use: Reports: Coffee Other Caffeine Use: 3 cups coffee per day - Alcohol Use Days Per Week of Alcohol Use: 3 Number of Drinks Per Day: 2 Total Drinks Per Week: 6 - Recreational Drug Use Recreational Drug Use: No ED ROS GENERAL - Review of Systems Review Of Systems: Unable To Obtain Constitutional: Reports: Fever ED EXAM, GENERAL - Physical Exam Exam: See Below Exam Limited By: Respiratory Distress General Appearance: Alert, Severe Distress Respiratory/Chest: Rales, Rhonchi, Accessory Muscle Use, Other (CPAP on 8 L) Cardiovascular: Regular Rate, Rhythm, No Murmur GI/Abdominal: Soft, Non-Tender Course - Vital Signs Last Recorded V/S: Last Vital Signs Temp 99.5 F 09/25/17 00:48 Pulse 94 09/25/17 00:48 Resp 25 H 09/25/17 00:48 BP 146/59 H 09/25/17 00:48 Pulse Ox 93 L 09/25/17 00:48 - Orders/Labs/Meds Orders: Active Orders 24 hr Category Date Time Status BIPAP [RT BiPAP/CPAP] [RC] ASDIRECTED Care 09/25/17 00:27 Active EKG Documentation Completion [RC] ASDIRECTED Care 09/24/17 23:47 Active Peripheral IV Care [RC] . DIRECTED Care 09/24/17 23:47 Active Vital Signs [RC] Q1H Care 09/24/17 23:48 Active Chest 1V Frontal [CR] Urgent Exams 09/24/17 23:46 Taken Cefepime [Maxipime] 1 gm Med 09/25/17 01:15 Ordered Sodium Chloride 0.9% [Normal Saline] 50 ml IV Q8H Sodium Chloride 0.9% [Saline Flush] Med 09/24/17 23:46 Active 10 ml FLUSH ASDIRECTED PRN Sodium Chloride 0.9% [Saline Flush] Med 09/24/17 23:46 Active 10 ml FLUSH ASDIRECTED PRN Blood Culture x2 Reflex Set [OM.PC] Urgent Oth 09/24/17 23:48 Ordered Peripheral IV Insertion Adult [OM.PC] Urgent Oth 09/24/17 23:46 Ordered EKG 12 Lead [EK] Urgent Ther 09/24/17 23:46 Ordered Medication Orders Cefepime HCl 1 gm/ Sodium (Chloride) 50 mls @ 100 mls/hr IV Q8H [place] Sodium Chloride (Saline Flush) 10 ml FLUSH ASDIRECTED PRN PRN Reason: Keep Vein Open Last Admin: 09/24/17 23:45 Dose: 10 ml Sodium Chloride (Saline Flush) 10 ml FLUSH ASDIRECTED PRN PRN Reason: Keep Vein Open Labs: Laboratory Tests 09/24/17 09/24/17 09/24/17 Range/Units 00:15 00:15 00:15 WBC 9.5 (4.5-11.0) K/uL RBC 2.85 L (4.30-5.90) M/uL Hgb 8.9 L (12.0-15.0) g/dL Hct 26.4 L (40.0-54.0) % MCV 93 (80-98) fL MCH 31 (27-31) pg MCHC 34 (32-36) % Plt Count 96 L (150-400) K/uL Neut % (Auto) 79 H (36-66) % Lymph % (Auto) 5 L (24-44) % [place] % (Auto) 8 H (2-6) % Eos % (Auto) 8 H (2-4) % Baso % (Auto) 0 (0-1) % Puncture Site R radial ABG pH 7.484 H (7.350-7.450) ABG pCO2 38.8 (35.0-42.0) mmHg ABG pO2 127.0 H (75.0-100.0) mmHg ABG HCO3 28.8 H (22.0-26.0) mmol/L ABG Total CO2 26.8 (23.0-27.0) mmol/L ABG O2 Saturation 99.5 H (95.0-98.0) % ABG O2 Content 12.2 L (15.0-23.0) %vol ABG Base Excess 5.4 mm/L ABG Hemoglobin 8.8 L (13.5-18.0) g/dL ABG Oxyhemoglobin 96.0 % ABG Carboxyhemoglobin 3.4 H (0.0-1.6) % ABG Methemoglobin 0.1 % Isaac Test Ok O2 Delivery Device Cpap Oxygen Flow Rate 8 L Sodium 132 L (140-148) mmol/L Potassium 3.6 (3.6-5.2) mmol/L Chloride 96 L (100-108) mmol/L Carbon Dioxide 29 (21-32) mmol/L Anion Gap 10.6 (5.0-14.0) mmol/L BUN 29 H (7-18) mg/dL Creatinine 1.0 (0.8-1.3) mg/dL Est Cr Clr Drug Dosing 54.99 mL/min Estimated GFR (MDRD) > 60 (>60) Glucose 122 H (74-106) mg/dL Lactic Acid (0.4-2.0) mmol/L Calcium 8.1 L (8.5-10.1) mg/dL Total Bilirubin 0.8 (0.2-1.0) mg/dL AST 60 H (15-37) U/L ALT 100 H (12-78) U/L Alkaline Phosphatase 93 (46-116) U/L Troponin I < 0.017 (0.000-0.056) ng/mL C-Reactive Protein (0.0-0.3) mg/dL NT-Pro-B Natriuret Pep (5-450) pg/mL Total Protein 6.1 L (6.4-8.2) g/dL Albumin 2.4 L (3.4-5.0) g/dL Globulin 3.7 H (2.3-3.5) g/dL Albumin/Globulin Ratio 0.7 L (1.2-2.2) 09/24/17 09/24/17 Range/Units 00:15 00:15 WBC (4.5-11.0) K/uL RBC (4.30-5.90) M/uL Hgb (12.0-15.0) g/dL Hct (40.0-54.0) % MCV (80-98) fL MCH (27-31) pg MCHC (32-36) % Plt Count (150-400) K/uL Neut % (Auto) (36-66) % Lymph % (Auto) (24-44) % [place] % (Auto) (2-6) % Eos % (Auto) (2-4) % Baso % (Auto) (0-1) % Puncture Site ABG pH (7.350-7.450) ABG pCO2 (35.0-42.0) mmHg ABG pO2 (75.0-100.0) mmHg ABG HCO3 (22.0-26.0) mmol/L ABG Total CO2 (23.0-27.0) mmol/L ABG O2 Saturation (95.0-98.0) % ABG O2 Content (15.0-23.0) %vol ABG Base Excess mm/L ABG Hemoglobin (13.5-18.0) g/dL ABG Oxyhemoglobin % ABG Carboxyhemoglobin (0.0-1.6) % ABG Methemoglobin % Isaac Test O2 Delivery Device Oxygen Flow Rate L Sodium (140-148) mmol/L Potassium (3.6-5.2) mmol/L Chloride (100-108) mmol/L Carbon Dioxide (21-32) mmol/L Anion Gap (5.0-14.0) mmol/L BUN (7-18) mg/dL Creatinine (0.8-1.3) mg/dL Est Cr Clr Drug Dosing mL/min Estimated GFR (MDRD) (>60) Glucose (74-106) mg/dL Lactic Acid 1.2 (0.4-2.0) mmol/L Calcium (8.5-10.1) mg/dL Total Bilirubin (0.2-1.0) mg/dL AST (15-37) U/L ALT (12-78) U/L Alkaline Phosphatase (46-116) U/L Troponin I (0.000-0.056) ng/mL C-Reactive Protein 12.33 H (0.0-0.3) mg/dL NT-Pro-B Natriuret Pep 1691 H (5-450) pg/mL Total Protein (6.4-8.2) g/dL Albumin (3.4-5.0) g/dL Globulin (2.3-3.5) g/dL Albumin/Globulin Ratio (1.2-2.2) Meds: Medications Generic Name Dose Route Start Last Admin Trade Name Freq PRN Reason Stop Dose Admin Cefepime HCl 1 gm/ Sodium 50 mls @ 100 mls/hr 09/25/17 01:15 Chloride IV Q8H [place] Sodium Chloride 10 ml 09/24/17 23:46 09/24/17 23:45 Saline Flush FLUSH 10 ml ASDIRECTED PRN Administration Keep Vein Open Sodium Chloride 10 ml 09/24/17 23:46 Saline Flush FLUSH ASDIRECTED PRN Keep Vein Open Departure - Departure Time of Disposition: 01:17 Disposition: Admitted As Inpatient 66 Condition: Fair Clinical Impression: Aspiration pneumonia Qualifiers: Aspiration pneumonia type: due to regurgitated food Laterality: right Lung location: lower lobe of lung Qualified Code(s): J69.0 - Pneumonitis due to inhalation of food and vomit - Discharge Information Referrals: Francisco Cheng MD [Primary Care Provider] - - My Orders Last 24 Hours: My Active Orders 09/24/17 23:46 Chest 1V Frontal [CR] Urgent Sodium Chloride 0.9% [Saline Flush] 10 ml FLUSH ASDIRECTED PRN Sodium Chloride 0.9% [Saline Flush] 10 ml FLUSH ASDIRECTED PRN Peripheral IV Insertion Adult [OM.PC] Urgent EKG 12 Lead [EK] Urgent 09/24/17 23:47 EKG Documentation Completion [RC] ASDIRECTED Peripheral IV Care [RC] . DIRECTED 09/24/17 23:48 Vital Signs [RC] Q1H Blood Culture x2 Reflex Set [OM.PC] Urgent 09/25/17 00:27 BIPAP [RT BiPAP/CPAP] [RC] ASDIRECTED - Assessment/Plan Last 24 Hours: My Active Orders 09/24/17 23:46 Chest 1V Frontal [CR] Urgent Sodium Chloride 0.9% [Saline Flush] 10 ml FLUSH ASDIRECTED PRN Sodium Chloride 0.9% [Saline Flush] 10 ml FLUSH ASDIRECTED PRN Peripheral IV Insertion Adult [OM.PC] Urgent EKG 12 Lead [EK] Urgent 09/24/17 23:47 EKG Documentation Completion [RC] ASDIRECTED Peripheral IV Care [RC] . DIRECTED 09/24/17 23:48 Vital Signs [RC] Q1H Blood Culture x2 Reflex Set [OM.PC] Urgent 09/25/17 00:27 BIPAP [RT BiPAP/CPAP] [RC] ASDIRECTED Plan: Assessment Acuity = acute Site and laterality = aspiration pneumonia complicated patient with history of substernal and history of dysphagia secondary to radiation therapy Etiology = frequent aspirations Manifestations = hypoxia Location of injury = Home Lab values = hemoglobin low at 8.9 consistent normochromic anemia pH 7.48 PCO2 38.8 bicarbonate 28.8 consistent with primary respiratory alkalosis sodium low at 132 consistent hyponatremia lactic acid normal at 1.2, troponin is negative, AST elevated at 60 ALTs elevated 100 consists with elevated liver enzymes CRP markedly elevated 12.3 BNP elevated 1691 uncertain significance albumin low at 2.4 consistent hypoalbuminemia, chest x-ray does show increase in opacity concern for increasing infiltrate compared to chest x-ray 2 days prior official read radiology is pending Plan Called discussed case with hospitalist tax commissioner he agreed to come and evaluate the patient in the emergency department for admission This note was dictated using [employer] voice recognition software please call with any questions on syntax or helen.
--- NOTE | 2017-09-25 01:23 | PCM.HP ---
H&P History of Present Illness - General Date of Service: 09/25/17 Admit Problem/Dx: Admission Diagnosis/Problem Admission Diagnosis/Problem Aspiration pneumonia Source of Information: Family, Provider. No: Patient History Limitations: Reports: Altered Mental Status (very lethargic) - History of Present Illness Initial Comments - Free Text/Narative: Trever presents to the ER today from [facility] with increasing shortness of breath, lethargy and confusion. He is very lethargic at this time and unable to answer any questions. History is gathered from his . Symptoms have slowly progressed over the last couple of days. She has noticed that he's been coughing and his sputum is often productive for a creamy colored expectorant. One week ago his sputum was clear. He has recently finished a course of antibiotics as well as a course of steroids. He was doing well after his course of antibiotics which ended one week ago. She reports that he had been receiving nutrition via a feeding tube but this was discontinued one week ago after a satisfactory speech pathology evaluation. She has not witnessed any feedings at the [place] [facility] but she is concerned that he may not be following the instructions provided by the speech pathologist. He did have a fever at the [place] [facility] 3 days ago but none have been reported since that time. She has noticed that over the last few days he's become more somnolent and less interactive. Workup in the emergency room revealed acute respiratory failure with hypoxia and a new moderate right lower lung infiltrate concerning for aspiration. He is requiring noninvasive ventilation and will be admitted to the intensive care unit for further management. - Related Data Allergies/Adverse Reactions: Allergies Allergy/AdvReac Type Severity Reaction Status Date / Time amoxicillin [From Augmentin] AdvReac Diarrhea Verified 09/25/17 00:00 atorvastatin calcium AdvReac Muscle Verified 09/25/17 00:00 [From Lipitor] Aches clavulanic acid AdvReac Diarrhea Verified 09/25/17 00:00 [From Augmentin] Home Medications: Home Meds Allopurinol [Zyloprim] 300 mg PO DAILY 09/30/13 [History] Rosuvastatin [Crestor] 10 mg PO DAILY 09/30/13 [History] Levothyroxine 25 mcg PO DAILY 12/05/16 [History] Magnesium Oxide [Magnesium] 400 mg PO BID 12/05/16 [History] Valsartan 160 mg PO DAILY 12/05/16 [History] Albuterol Sulfate [Proair Hfa] 1 puff IH Q6H PRN 09/21/17 [History] D3/E/Se/Soy Isofl/Tocoph/Lycop [Prostate 2.4] 1 oz PO TID 09/21/17 [History] Ferrous Sulfate [Ferosul] 220 mg PO BID 09/21/17 [History] Fluticasone Propionate [Flonase] 2 spray NS ASDIRECTED 09/21/17 [History] Pindolol 5 mg PO BID 09/21/17 [History] amLODIPine [Norvasc] 10 mg PO DAILY 09/21/17 [History] levETIRAcetam [Keppra] 7.5 ml PO BID 09/21/17 [History] Past Medical History HEENT History: Reports: Hard of Hearing, Impaired Vision Cardiovascular History: Reports: High Cholesterol, Hypertension Other Cardiovascular History: aortic stenosis Respiratory History: Reports: Bronchitis, Recurrent, Pneumonia, Recurrent ( Aspiration) Gastrointestinal History: Reports: Other (See Below) Other Gastrointestinal History: stats has slight ter in large intestine after having CT scan 2 weeks ago, presently on tube feedings Genitourinary History: Reports: BPH Musculoskeletal History: Reports: Gout Neurological History: Reports: Head Trauma (Subdural hematoma secondary to a fall) Endocrine/Metabolic History: Reports: Diabetes, Type II, Hypothyroidism Hematologic History: Reports: Idiopathic Thrombocytopenia Oncologic (Cancer) History: Reports: Other (See Below) Other Oncologic History: 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 Dermatologic History: Reports: Melanoma Other Dermatologic History: back - Infectious Disease History Infectious Disease History: Reports: Chicken Pox, Measles, Mumps - Past Surgical History Respiratory Surgical History: Reports: Thoracotomy Social & Family History - Family History Family Medical History: Noncontributory - Tobacco Use Smoking Status *Q: Never Smoker Second Hand Smoke Exposure: No - Caffeine Use Caffeine Use: Reports: Coffee Other Caffeine Use: 3 cups coffee per day - Alcohol Use Days Per Week of Alcohol Use: 3 Number of Drinks Per Day: 2 Total Drinks Per Week: 6 - Recreational Drug Use Recreational Drug Use: No H&P Review of Systems - Review of Systems: Review Of Systems: Unable To Obtain (letehargic) Exam - Exam Exam: See Below - Vital Signs Vital Signs: Last Vital Signs Temp 37.5 C 09/25/17 00:48 Pulse 94 09/25/17 00:48 Resp 25 H 09/25/17 00:48 BP 146/59 H 09/25/17 00:48 Pulse Ox 93 L 09/25/17 00:48 Weight: 78.018 kg - Exam Quality Assessment: Supplemental Oxygen General: Alert, Lethargic. No: Oriented, Cooperative, Mild Distress HEENT: Conjunctiva Clear. No: Mucosa Moist & [place] (dry), Scleral Icterus Neck: Supple, Trachea Midline. No: Lymphadenopathy Lungs: Decreased Breath Sounds (right lung base), Crackles (both lung bases R>L) . No: Normal Respiratory Effort (increased work of breathing ) Cardiovascular: Regular Rhythm, Tachycardia GI/Abdominal Exam: Normal Bowel Sounds, Soft, Non-Tender, Distended Extremities: Pedal Edema (pitting edema to knee bilaterally ). No: Increased Warmth Peripheral Pulses: 1+: Dorsalis Pedis (L), Dorsalis Pedis (R) Skin: Warm, Dry Neuro Extensive - Mental Status: Alert, Slow Response to Commands. No: Oriented x3 Neuro Extensive - Motor, Sensory, Reflexes: Dysarthria. No: Abnormal Motor, Tremor Psychiatric: Alert. No: Anxious - Patient Data Lab Results Last 24 hrs: Laboratory Results - last 24 hr 09/24/17 09/24/17 09/24/17 Range/Units 00:15 00:15 00:15 WBC 9.5 (4.5-11.0) K/uL RBC 2.85 L (4.30-5.90) M/uL Hgb 8.9 L (12.0-15.0) g/dL Hct 26.4 L (40.0-54.0) % MCV 93 (80-98) fL MCH 31 (27-31) pg MCHC 34 (32-36) % Plt Count 96 L (150-400) K/uL Neut % (Auto) 79 H (36-66) % Lymph % (Auto) 5 L (24-44) % [place] % (Auto) 8 H (2-6) % Eos % (Auto) 8 H (2-4) % Baso % (Auto) 0 (0-1) % Puncture Site R radial ABG pH 7.484 H (7.350-7.450) ABG pCO2 38.8 (35.0-42.0) mmHg ABG pO2 127.0 H (75.0-100.0) mmHg ABG HCO3 28.8 H (22.0-26.0) mmol/L ABG Total CO2 26.8 (23.0-27.0) mmol/L ABG O2 Saturation 99.5 H (95.0-98.0) % ABG O2 Content 12.2 L (15.0-23.0) %vol ABG Base Excess 5.4 mm/L ABG Hemoglobin 8.8 L (13.5-18.0) g/dL ABG Oxyhemoglobin 96.0 % ABG Carboxyhemoglobin 3.4 H (0.0-1.6) % ABG Methemoglobin 0.1 % Isaac Test Ok O2 Delivery Device Cpap Oxygen Flow Rate 8 L Sodium 132 L (140-148) mmol/L Potassium 3.6 (3.6-5.2) mmol/L Chloride 96 L (100-108) mmol/L Carbon Dioxide 29 (21-32) mmol/L Anion Gap 10.6 (5.0-14.0) mmol/L BUN 29 H (7-18) mg/dL Creatinine 1.0 (0.8-1.3) mg/dL Est Cr Clr Drug Dosing 54.99 mL/min Estimated GFR (MDRD) > 60 (>60) Glucose 122 H (74-106) mg/dL Lactic Acid (0.4-2.0) mmol/L Calcium 8.1 L (8.5-10.1) mg/dL Total Bilirubin 0.8 (0.2-1.0) mg/dL AST 60 H (15-37) U/L ALT 100 H (12-78) U/L Alkaline Phosphatase 93 (46-116) U/L Troponin I < 0.017 (0.000-0.056) ng/mL C-Reactive Protein (0.0-0.3) mg/dL NT-Pro-B Natriuret Pep (5-450) pg/mL Total Protein 6.1 L (6.4-8.2) g/dL Albumin 2.4 L (3.4-5.0) g/dL Globulin 3.7 H (2.3-3.5) g/dL Albumin/Globulin Ratio 0.7 L (1.2-2.2) 04/25/18 04/25/18 Range/Units 00:15 00:15 WBC (4.5-11.0) K/uL RBC (4.30-5.90) M/uL Hgb (12.0-15.0) g/dL Hct (40.0-54.0) % MCV (80-98) fL MCH (27-31) pg MCHC (32-36) % Plt Count (150-400) K/uL Neut % (Auto) (36-66) % Lymph % (Auto) (24-44) % Butler % (Auto) (2-6) % Eos % (Auto) (2-4) % Baso % (Auto) (0-1) % Puncture Site ABG pH (7.350-7.450) ABG pCO2 (35.0-42.0) mmHg ABG pO2 (75.0-100.0) mmHg ABG HCO3 (22.0-26.0) mmol/L ABG Total CO2 (23.0-27.0) mmol/L ABG O2 Saturation (95.0-98.0) % ABG O2 Content (15.0-23.0) %vol ABG Base Excess mm/L ABG Hemoglobin (13.5-18.0) g/dL ABG Oxyhemoglobin % ABG Carboxyhemoglobin (0.0-1.6) % ABG Methemoglobin % Isaac Test O2 Delivery Device Oxygen Flow Rate L Sodium (140-148) mmol/L Potassium (3.6-5.2) mmol/L Chloride (100-108) mmol/L Carbon Dioxide (21-32) mmol/L Anion Gap (5.0-14.0) mmol/L BUN (7-18) mg/dL Creatinine (0.8-1.3) mg/dL Est Cr Clr Drug Dosing mL/min Estimated GFR (MDRD) (>60) Glucose (74-106) mg/dL Lactic Acid 1.2 (0.4-2.0) mmol/L Calcium (8.5-10.1) mg/dL Total Bilirubin (0.2-1.0) mg/dL AST (15-37) U/L ALT (12-78) U/L Alkaline Phosphatase (46-116) U/L Troponin I (0.000-0.056) ng/mL C-Reactive Protein 12.33 H (0.0-0.3) mg/dL NT-Pro-B Natriuret Pep 1691 H (5-450) pg/mL Total Protein (6.4-8.2) g/dL Albumin (3.4-5.0) g/dL Globulin (2.3-3.5) g/dL Albumin/Globulin Ratio (1.2-2.2) Result Diagrams: 09/24/17 00:15 09/24/17 00:15 Imaging Impressions Last 24 hrs: CXR - images personally reviewed - residual left sided infiltrate, mild. New moderate right lower lobe infiltrate. Heart size normal. No mass. No effusion. EKG INTERPRETATION EKG Date: 09/25/17 Rhythm: NSR Rate (Beats/Min): 95 [place]: Normal P-Wave: Present QRS: Normal ST-T: Normal QT: Normal *Q Meaningful Use (ADM) - VTE Risk Assess *Q Each Risk Factor Represents 1 Point: Swollen Legs, Current, Serious lung disease including pneumonia Total Score 1 Point Risk Factors: 2 Each Risk Factor Represents 2 Points: Malignancy (present or previous) Total Score 2 Point Risk Factors: 2 Each Risk Factor Represents 3 Points: Age 75 Years or Greater Total Score 3 Point Risk Factors: 3 Each Risk Factor Represents 5 Points: None Total Score 5 Point Risk Factors: 0 Venous Thromboembolism Risk Factor Score *Q: 7 - Problem List (1) Aspiration pneumonia SNOMED Code(s): 277380864 ICD Code: J69.0 - PNEUMONITIS DUE TO INHALATION OF FOOD AND VOMIT Status: Acute Current Visit: Yes Qualifiers: Aspiration pneumonia type: due to regurgitated food Laterality: right Lung location: lower lobe of lung Qualified Code(s): J69.0 - Pneumonitis due to inhalation of food and vomit (2) Dysphagia SNOMED Code(s): 96870587, 255119521 ICD Code: R13.10 - DYSPHAGIA, UNSPECIFIED Status: Acute Current Visit: No Qualifiers: Dysphagia type: pharyngoesophageal phase Qualified Code(s): R13.14 - Dysphagia, pharyngoesophageal phase (3) CKD (chronic kidney disease) stage 3, GFR 30-59 ml/min SNOMED Code(s): 109708667 ICD Code: N18.3 - CHRONIC KIDNEY DISEASE, STAGE 3 (MODERATE) Status: Chronic Current Visit: No (4) HTN, Essential hypertension SNOMED Code(s): 36896965 ICD Code: I10 - ESSENTIAL (PRIMARY) HYPERTENSION Status: Chronic Current Visit: No (5) Subdural hematoma, post-traumatic SNOMED Code(s): 64957529 ICD Code: S06.5X9A - TRAUM SUBDR HEM W LOC OF UNSP DURATION, INIT Status: Chronic Current Visit: Yes Qualifiers: Encounter type: subsequent encounter Loss of consciousness presence/ duration: with LOC of unspecified duration Qualified Code(s): S06.5X9D - Traumatic subdural hemorrhage with loss of consciousness of unspecified duration , subsequent encounter Problem List Initiated/Reviewed/Updated: Yes Orders Last 24hrs: Active Orders 24 hr Category Date Time Status Patient Status Manage Transfer [TRANSFER] Routine ADT 09/25/17 01:04 Ordered BIPAP [RT BiPAP/CPAP] [RC] ASDIRECTED Care 09/25/17 00:27 Active EKG Documentation Completion [RC] ASDIRECTED Care 09/24/17 23:47 Active Peripheral IV Care [RC] . DIRECTED Care 09/24/17 23:47 Active Vital Signs [RC] Q1H Care 09/24/17 23:48 Active Chest 1V Frontal [CR] Urgent Exams 09/24/17 23:46 Taken Cefepime [Maxipime] 1 gm Med 09/25/17 01:15 Ordered Sodium Chloride 0.9% [Normal Saline] 50 ml IV Q8H Sodium Chloride 0.9% [Saline Flush] Med 09/24/17 23:46 Active 10 ml FLUSH ASDIRECTED PRN Sodium Chloride 0.9% [Saline Flush] Med 09/24/17 23:46 Active 10 ml FLUSH ASDIRECTED PRN Blood Culture x2 Reflex Set [OM.PC] Urgent Oth 09/24/17 23:48 Ordered Peripheral IV Insertion Adult [OM.PC] Urgent Oth 09/24/17 23:46 Ordered Resuscitation Status Routine Resus Stat 09/25/17 01:07 Ordered EKG 12 Lead [EK] Urgent Ther 09/24/17 23:46 Ordered Medication Orders Cefepime HCl 1 gm/ Sodium (Chloride) 50 mls @ 100 mls/hr IV Q8H [place] Sodium Chloride (Saline Flush) 10 ml FLUSH ASDIRECTED PRN PRN Reason: Keep Vein Open Last Admin: 09/24/17 23:45 Dose: 10 ml Sodium Chloride (Saline Flush) 10 ml FLUSH ASDIRECTED PRN PRN Reason: Keep Vein Open Assessment/Plan Comment:: ASSESSMENT AND PLAN - Aspiration pneumonia due to recurrent aspiration - Complicated by acute respiratory failure with significant hypoxia. Currently requiring noninvasive ventilation. Progression of right lower lung infiltrate from chest x-ray 3 days ago. Tube feeding was discontinued in favor of oral nutrition approximately one week ago. Cultures are all pending. He has had recent antibiotics and steroids. -Broad-spectrum antibiotic coverage with vancomycin, cefepime and azithromycin -IV steroids -Scheduled and as needed nebulizers -Supplement oxygen, currently requiring noninvasive ventilation -Gentle fluids -Nothing by mouth until mental status improves -Follow-up cultures Recent subdural hematoma, traumatic - injury occurred about 6 weeks ago and he has been hospitalized recently and is currently receiving therapy at a local [place] [facility]. Injury complicated by worsening of his baseline dysphasia. -Nothing by mouth -Physical therapy once more stable Essential hypertension - blood pressure in the normal range at this time and usual medications will be continued. Stage III chronic kidney disease - kidney function stable and at baseline at this time. Maintenance issues - - DVT prophylaxis - enoxaparin - GI prophylaxis - PPI - Nutrition - nothing by mouth for now - [place] catheter - not indicated at this moment but may be considered if mental status declines CODE STATUS - full code (discussed with his ) Admission justification - This patient will be admitted for inpatient services and is medically appropriate meeting medical necessity for inpatient admission as outlined in my documentation. I reasonably expect the patient will require inpatient services that span a period time over 2 midnights. I reasonably expect this patient to be discharged or transferred within 96 hours after admission to the [facility] Disposition - anticipate discharge back to the [place] [facility] after the hospital stay Primary care physician - Dr. Skylar Felder M.D.
[2017-09-25] MEDS ORDERED: Ondansetron 4 MG/2 ML SDV IV PRN (01:46)
[2017-09-25] MEDS ORDERED: LORazepam 2 MG/ML SDV IVPUSH PRN (01:46)
[2017-09-25] MEDS ORDERED: Ondansetron 4 MG Tab.DIS PO PRN (01:46)
[2017-09-25] MEDS ORDERED: Sodium Chloride 0.9% 1,000 ML IV SCH (01:46)
[2017-09-25] MEDS ORDERED: Bisacodyl 10 MG Supp RECTAL PRN (01:46)
[2017-09-25] MEDS ORDERED: Acetaminophen 325 MG Tab GTUBE PRN (01:46)
[2017-09-25] MEDS ORDERED: Albuterol 0.083% 2.5 MG/3 ML Neb Soln NEB PRN (01:46)
[2017-09-25] MEDS: methylPREDNISolone Sodium Succinate 125 MG/2 ML SDV IVPUSH ONE ×2 (02:25→02:53)
[2017-09-25] MEDS: Potassium Chloride 10% 20 MEQ/15 ML Soln 15 ML UD Cup GTUBE ONE ×2 (02:25→02:53)
[2017-09-25] MEDS: Azithromycin 500 MG in Sodium Chloride 0.9% 250 ML IV SCH ×2 (02:26→02:53)
[2017-09-25] MEDS: Cefepime 2 GM in Sodium Chloride 0.9% 50 ML IV SCH ×3 (02:33→14:17)
[2017-09-25] MEDS ORDERED: Albuterol/Ipratropium 3.0-0.5 MG/3 ML Neb Soln NEB SCH (06:00)
[2017-09-25] MEDS: Pantoprazole 40 MG Vial IV SCH (06:24)
--- NOTE | 2017-09-25 08:40 | CR ---
Chest 1V Frontal HISTORY: hypoxic COMPARISON: 09/21/2017 FINDINGS: Portable chest, 0026 hours. Basilar infiltrates bilaterally have increased in the interval. Upper chest remains clear. Mild cardi omegaly is stable. Pulmonary vasculature is not engorged. Atherosclerotic aorta is redemonstrated. No pleural fluid is seen. Nonspecific elevation left hemidiaphragm is again noted. Bony structures are osteopenic. IMPRESSION: Interval increase in lower lobe infiltrates bilaterally since 09/21/2017.
[2017-09-25] MEDS: Allopurinol 300 MG Tab GTUBE SCH (08:54)
[2017-09-25] MEDS: levETIRAcetam 500 MG/5 ML Solution ML 473 ml Bottle GTUBE SCH ×2 (08:55→20:18)
[2017-09-25] MEDS: Pindolol 10 MG Tab GTUBE SCH ×2 (08:55→20:18)
[2017-09-25] MEDS: Levothyroxine 25 MCG Tab GTUBE SCH (08:55)
[2017-09-25] MEDS ORDERED: Non-Formulary Medication 1 Each (Valsartan [Valsartan] 160 MG) GTUBE SCH (09:00)
[2017-09-25] MEDS ORDERED: Non-Formulary Medication 1 Each (Amlodipine [Norvasc] 10 MG) GTUBE SCH (09:00)
[2017-09-25] MEDS ORDERED: Levothyroxine 25 MCG Tab GTUBE SCH (09:00)
[2017-09-25] MEDS ORDERED: PINDOLOL 5 MG GTUBE SCH (09:00)
[2017-09-25] MEDS ORDERED: Enoxaparin 40 MG/0.4 ML Syringe SUBCUT SCH (09:00)
--- NOTE | 2017-09-25 09:32 | PCM.PN ---
- General Info Date of Service: 09/25/17 Functional Status: Reports: Pain Controlled - Review of Systems General: Reports: Weakness. Denies: Fever Pulmonary: Reports: Shortness of Breath Systems Review Comment:: There were no acute events since admission. We have been able to wean down the supplemental oxygen via noninvasive ventilation and even remove the noninvasive ventilation this morning. Respiratory rate and oxygenation have remained stable since the noninvasive ventilation was removed. He has not had any fevers. He does have loose upper respiratory sounds which are similar to the time of admission. He does not complain of chest pain or abdominal pain. - Patient Data Vitals - Most Recent: Last Vital Signs Temp 36.7 C 09/25/17 08:00 Pulse 92 09/25/17 08:55 Resp 21 H 09/25/17 08:00 BP 115/43 L 09/25/17 08:55 Pulse Ox 98 09/25/17 08:00 Weight - Most Recent: 81.1 kg I&O - Last 24 Hours: Intake & Output 09/24/17 09/25/17 09/25/17 22:59 06:59 14:59 Intake Total 60 Output Total 200 200 Balance -200 -140 Lab Results Last 24 Hours: Laboratory Results - last 24 hr 09/24/17 09/24/17 09/24/17 Range/Units 00:15 00:15 00:15 WBC 9.5 (4.5-11.0) K/uL RBC 2.85 L (4.30-5.90) M/uL Hgb 8.9 L (12.0-15.0) g/dL Hct 26.4 L (40.0-54.0) % MCV 93 (80-98) fL MCH 31 (27-31) pg MCHC 34 (32-36) % Plt Count 96 L (150-400) K/uL Neut % (Auto) 79 H (36-66) % Lymph % (Auto) 5 L (24-44) % [place] % (Auto) 8 H (2-6) % Eos % (Auto) 8 H (2-4) % Baso % (Auto) 0 (0-1) % Puncture Site R radial ABG pH 7.484 H (7.350-7.450) ABG pCO2 38.8 (35.0-42.0) mmHg ABG pO2 127.0 H (75.0-100.0) mmHg ABG HCO3 28.8 H (22.0-26.0) mmol/L ABG Total CO2 26.8 (23.0-27.0) mmol/L ABG O2 Saturation 99.5 H (95.0-98.0) % ABG O2 Content 12.2 L (15.0-23.0) %vol ABG Base Excess 5.4 mm/L ABG Hemoglobin 8.8 L (13.5-18.0) g/dL ABG Oxyhemoglobin 96.0 % ABG Carboxyhemoglobin 3.4 H (0.0-1.6) % ABG Methemoglobin 0.1 % [place] Test Ok O2 Delivery Device Cpap Oxygen Flow Rate 8 L Sodium 132 L (140-148) mmol/L Potassium 3.6 (3.6-5.2) mmol/L Chloride 96 L (100-108) mmol/L Carbon Dioxide 29 (21-32) mmol/L Anion Gap 10.6 (5.0-14.0) mmol/L BUN 29 H (7-18) mg/dL Creatinine 1.0 (0.8-1.3) mg/dL Est Cr Clr Drug Dosing 54.99 mL/min Estimated GFR (MDRD) > 60 (>60) Glucose 122 H (74-106) mg/dL Lactic Acid (0.4-2.0) mmol/L Calcium 8.1 L (8.5-10.1) mg/dL Magnesium (1.8-2.4) mg/dL Total Bilirubin 0.8 (0.2-1.0) mg/dL AST 60 H (15-37) U/L ALT 100 H (12-78) U/L Alkaline Phosphatase 93 (46-116) U/L Troponin I < 0.017 (0.000-0.056) ng/mL C-Reactive Protein (0.0-0.3) mg/dL NT-Pro-B Natriuret Pep (5-450) pg/mL Total Protein 6.1 L (6.4-8.2) g/dL Albumin 2.4 L (3.4-5.0) g/dL Globulin 3.7 H (2.3-3.5) g/dL Albumin/Globulin Ratio 0.7 L (1.2-2.2) 04/25/18 04/25/18 04/26/18 Range/Units 00:15 00:15 04:45 WBC (4.5-11.0) K/uL RBC (4.30-5.90) M/uL Hgb (12.0-15.0) g/dL Hct (40.0-54.0) % MCV (80-98) fL MCH (27-31) pg MCHC (32-36) % Plt Count (150-400) K/uL Neut % (Auto) (36-66) % Lymph % (Auto) (24-44) % [place] % (Auto) (2-6) % Eos % (Auto) (2-4) % Baso % (Auto) (0-1) % Puncture Site L radial ABG pH 7.491 H (7.350-7.450) ABG pCO2 35.1 (35.0-42.0) mmHg ABG pO2 74.6 L (75.0-100.0) mmHg ABG HCO3 26.6 H (22.0-26.0) mmol/L ABG Total CO2 25.1 (23.0-27.0) mmol/L ABG O2 Saturation 96.2 (95.0-98.0) % ABG O2 Content 10.3 L (15.0-23.0) %vol ABG Base Excess 3.5 mm/L ABG Hemoglobin 7.8 L (13.5-18.0) g/dL ABG Oxyhemoglobin 93.5 % ABG Carboxyhemoglobin 2.3 H (0.0-1.6) % ABG Methemoglobin 0.5 % Isaac Test Ok O2 Delivery Device Bipap Oxygen Flow Rate L Sodium (140-148) mmol/L Potassium (3.6-5.2) mmol/L Chloride (100-108) mmol/L Carbon Dioxide (21-32) mmol/L Anion Gap (5.0-14.0) mmol/L BUN (7-18) mg/dL Creatinine (0.8-1.3) mg/dL Est Cr Clr Drug Dosing mL/min Estimated GFR (MDRD) (>60) Glucose (74-106) mg/dL Lactic Acid 1.2 (0.4-2.0) mmol/L Calcium (8.5-10.1) mg/dL Magnesium (1.8-2.4) mg/dL Total Bilirubin (0.2-1.0) mg/dL AST (15-37) U/L ALT (12-78) U/L Alkaline Phosphatase (46-116) U/L Troponin I (0.000-0.056) ng/mL C-Reactive Protein 12.33 H (0.0-0.3) mg/dL NT-Pro-B Natriuret Pep 1691 H (5-450) pg/mL Total Protein (6.4-8.2) g/dL Albumin (3.4-5.0) g/dL Globulin (2.3-3.5) g/dL Albumin/Globulin Ratio (1.2-2.2) 09/25/17 Range/Units 04:45 WBC (4.5-11.0) K/uL RBC (4.30-5.90) M/uL Hgb (12.0-15.0) g/dL Hct (40.0-54.0) % MCV (80-98) fL MCH (27-31) pg MCHC (32-36) % Plt Count (150-400) K/uL Neut % (Auto) (36-66) % Lymph % (Auto) (24-44) % [place] % (Auto) (2-6) % Eos % (Auto) (2-4) % Baso % (Auto) (0-1) % Puncture Site ABG pH (7.350-7.450) ABG pCO2 (35.0-42.0) mmHg ABG pO2 (75.0-100.0) mmHg ABG HCO3 (22.0-26.0) mmol/L ABG Total CO2 (23.0-27.0) mmol/L ABG O2 Saturation (95.0-98.0) % ABG O2 Content (15.0-23.0) %vol ABG Base Excess mm/L ABG Hemoglobin (13.5-18.0) g/dL ABG Oxyhemoglobin % ABG Carboxyhemoglobin (0.0-1.6) % ABG Methemoglobin % Isaac Test O2 Delivery Device Oxygen Flow Rate L Sodium 133 L (140-148) mmol/L Potassium 4.2 (3.6-5.2) mmol/L Chloride 99 L (100-108) mmol/L Carbon Dioxide 27 (21-32) mmol/L Anion Gap 11.2 (5.0-14.0) mmol/L BUN 29 H (7-18) mg/dL Creatinine 1.0 (0.8-1.3) mg/dL Est Cr Clr Drug Dosing 54.80 mL/min Estimated GFR (MDRD) > 60 (>60) Glucose 150 H (74-106) mg/dL Lactic Acid (0.4-2.0) mmol/L Calcium 7.9 L (8.5-10.1) mg/dL Magnesium 1.8 (1.8-2.4) mg/dL Total Bilirubin (0.2-1.0) mg/dL AST (15-37) U/L ALT (12-78) U/L Alkaline Phosphatase (46-116) U/L Troponin I (0.000-0.056) ng/mL C-Reactive Protein (0.0-0.3) mg/dL NT-Pro-B Natriuret Pep (5-450) pg/mL Total Protein (6.4-8.2) g/dL Albumin (3.4-5.0) g/dL Globulin (2.3-3.5) g/dL Albumin/Globulin Ratio (1.2-2.2) Med Orders - Current: Current Medications Acetaminophen (Tylenol) 650 mg GTUBE Q4H PRN PRN Reason: Pain (Mild 1-3)/fever Albuterol (Proventil Neb Soln) 2.5 mg NEB Q4H PRN PRN Reason: Shortness Of Breath/wheezing Albuterol/Ipratropium (Duoneb 3.0-0.5 Mg/3 Ml) 3 ml NEB QIDRT [facility] Allopurinol (Zyloprim) 300 mg GTUBE DAILY [facility] Last Admin: 09/25/17 08:54 Dose: 300 mg Amlodipine Besylate (Norvasc) 10 mg GTUBE DAILY [facility] Bisacodyl (Dulcolax) 10 mg RECTAL DAILY PRN PRN Reason: Constipation Enoxaparin Sodium (Lovenox) 40 mg SUBCUT DAILY [facility] Last Admin: 09/25/17 08:43 Dose: Not Given Cefepime HCl 2 gm/ Sodium (Chloride) 50 mls @ 100 mls/hr IV Q12H [facility] Last Admin: 09/25/17 02:53 Dose: 100 mls/hr Azithromycin 500 mg/ Sodium (Chloride) 250 mls @ 250 mls/hr IV Q24H [facility] Last Admin: 09/25/17 02:53 Dose: 250 mls/hr Sodium Chloride (Normal Saline) 1,000 mls @ 50 mls/hr IV ASDIRECTED [facility] Last Admin: 09/25/17 08:38 Dose: 50 mls/hr Vancomycin HCl 1.25 gm/ Sodium (Chloride) 250 mls @ 167 mls/hr IV Q12H [facility] Levetiracetam (Keppra) 750 mg GTUBE BID [facility] Last Admin: 09/25/17 08:55 Dose: 750 mg Levothyroxine Sodium (Levothyroxine) 25 mcg GTUBE ACBREAKFAST [facility] Last Admin: 09/25/17 08:55 Dose: 25 mcg Lorazepam (Ativan) 0.5 - 1 mg IVPUSH Q4H PRN PRN Reason: Anxiety Methylprednisolone Sodium Succinate (Solu-Medrol) 62.5 mg IVPUSH Q8H [facility] Ondansetron HCl (Zofran Odt) 4 mg PO Q6H PRN PRN Reason: Nausea able to take PO Ondansetron HCl (Zofran) 4 mg IV Q6H PRN PRN Reason: Nausea/Vomiting Pantoprazole Sodium (Protonix Iv) 40 mg IV Q24H [facility] Last Admin: 09/25/17 06:24 Dose: 40 mg Pindolol (Pindolol) 5 mg GTUBE BID [facility] Last Admin: 09/25/17 08:55 Dose: 5 mg Sodium Chloride (Saline Flush) 10 ml FLUSH ASDIRECTED PRN PRN Reason: Keep Vein Open Last Admin: 09/24/17 23:45 Dose: 10 ml Valsartan (Diovan) 160 mg GTUBE DAILY [facility] Discontinued Medications Albuterol/Ipratropium (Duoneb 3.0-0.5 Mg/3 Ml) 3 ml NEB QID [facility] Last Admin: 09/25/17 06:29 Dose: 3 ml Vancomycin HCl 1.5 gm/ Sodium (Chloride) 250 mls @ 150 mls/hr IV ONETIME ONE Stop: 09/25/17 03:25 Last Admin: 09/25/17 02:54 Dose: 150 mls/hr Methylprednisolone Sodium Succinate (Solu-Medrol) 125 mg IVPUSH ONETIME ONE Stop: 09/25/17 01:47 Last Admin: 09/25/17 02:53 Dose: 125 mg Potassium Chloride (Potassium Chloride Solution) 40 meq GTUBE ONETIME ONE Stop: 09/25/17 01:47 Last Admin: 09/25/17 02:53 Dose: 40 meq Sodium Chloride (Saline Flush) 10 ml FLUSH ASDIRECTED PRN PRN Reason: Keep Vein Open - Exam Quality Assessment: Supplemental Oxygen General: Alert, Oriented, Cooperative, No Acute Distress, Lethargic HEENT: Pupils Equal Neck: Supple Lungs: Normal Respiratory Effort, Crackles (both bases, R>L) Cardiovascular: Regular Rate, Regular Rhythm GI/Abdominal Exam: Normal Bowel Sounds, Soft, Non-Tender, No Distention Extremities: Pedal Edema (mild bilateral ankle edema) Skin: Warm, Dry Psy/Mental Status: Alert, Normal Affect - Problem List & Annotations (1) Aspiration pneumonia SNOMED Code(s): 182897193 Code(s): J69.0 - PNEUMONITIS DUE TO INHALATION OF FOOD AND VOMIT Status: Acute Current Visit: Yes Qualifiers: Aspiration pneumonia type: due to regurgitated food Laterality: right Lung location: lower lobe of lung Qualified Code(s): J69.0 - Pneumonitis due to inhalation of food and vomit (2) Dysphagia SNOMED Code(s): 76315807, 193380043 Code(s): R13.10 - DYSPHAGIA, UNSPECIFIED Status: Chronic Current Visit: No Qualifiers: Dysphagia type: pharyngoesophageal phase Qualified Code(s): R13.14 - Dysphagia, pharyngoesophageal phase (3) CKD (chronic kidney disease) stage 3, GFR 30-59 ml/min SNOMED Code(s): 144481395 Code(s): N18.3 - CHRONIC KIDNEY DISEASE, STAGE 3 (MODERATE) Status: Chronic Current Visit: No (4) HTN, Essential hypertension SNOMED Code(s): 01392406 Code(s): I10 - ESSENTIAL (PRIMARY) HYPERTENSION Status: Chronic Current Visit: No (5) Subdural hematoma, post-traumatic SNOMED Code(s): 20000072 Code(s): S06.5X9A - TRAUM SUBDR HEM W LOC OF UNSP DURATION, INIT Status: Chronic Current Visit: Yes Qualifiers: Encounter type: subsequent encounter Loss of consciousness presence/ duration: with LOC of unspecified duration Qualified Code(s): S06.5X9D - Traumatic subdural hemorrhage with loss of consciousness of unspecified duration , subsequent encounter - Problem List Review Problem List Initiated/Reviewed/Updated: Yes - My Orders Last 24 Hours: My Active Orders 09/25/17 01:07 Resuscitation Status Routine 09/25/17 01:46 Patient Status [ADT] Routine BIPAP Adult [RT BiPAP/CPAP] [RC] ASDIRECTED Bedrest Bedside Commode [RC] ASDIRECTED Cardiac Monitoring [RC] CONTINUOUS Intake and Output [RC] QSHIFT Notify Provider Vital Signs [RC] ASDIRECTED Oxygen Therapy [RC] PRN Pulse Oximetry [RC] CONTINUOUS RT Aerosol Therapy [RC] ASDIRECTED Up With Assistance [RC] ASDIRECTED VTE/DVT Education [RC] Per Unit Routine Vital Signs [RC] Q2HR Acetaminophen [Tylenol] 650 mg GTUBE Q4H PRN Albuterol [Proventil Neb Soln] 2.5 mg NEB Q4H PRN Bisacodyl [Dulcolax] 10 mg RECTAL DAILY PRN LORazepam [Ativan] 0.5 - 1 mg IVPUSH Q4H PRN Ondansetron [Zofran ODT] 4 mg PO Q6H PRN Ondansetron [Zofran] 4 mg IV Q6H PRN Sodium Chloride 0.9% [Normal Saline] 1,000 ml IV ASDIRECTED Antiembolic Hose [OM.PC] Per Unit Routine 09/25/17 02:00 Azithromycin [Zithromax] 500 mg Sodium Chloride 0.9% [Normal Saline] 250 ml IV Q24H Cefepime [Maxipime] 2 gm Sodium Chloride 0.9% [Normal Saline] 50 ml IV Q12H 09/25/17 05:00 Height and Weight [RC] DAILY 09/25/17 06:00 Pantoprazole [ProTONIX IV] 40 mg IV Q24H 09/25/17 08:15 Levothyroxine 25 mcg GTUBE ACBREAKFAST 09/25/17 09:00 Allopurinol [Zyloprim] 300 mg GTUBE DAILY Enoxaparin [Lovenox] 40 mg SUBCUT DAILY Pindolol 5 mg GTUBE BID Valsartan [Diovan] 160 mg GTUBE DAILY amLODIPine [Norvasc] 10 mg GTUBE DAILY levETIRAcetam [Keppra] 750 mg GTUBE BID 09/25/17 09:24 CULTURE RESPIRATORY + SMEAR [RM] Routine 09/25/17 10:00 methylPREDNISolone Sod Succ [Solu-MEDROL] 62.5 mg IVPUSH Q8H 09/25/17 11:00 Albuterol/Ipratropium [DuoNeb 3.0-0.5 MG/3 ML] 3 ml NEB QIDRT 09/25/17 15:00 Vancomycin 1.25 gm Sodium Chloride 0.9% [Normal Saline] 250 ml IV Q12H 09/25/17 Breakfast Nothing per Oral Now Diet [DIET] 09/26/17 05:00 BASIC METABOLIC PANEL,BMP [CHEM] Timed CBC W/O DIFF,HEMOGRAM [HEME] Timed (1) - Plan Plan:: ASSESSMENT AND PLAN - Aspiration pneumonia due to recurrent aspiration - Complicated by acute respiratory failure with significant hypoxia. He is off of noninvasive ventilation as of this morning and has remained stable. Still requiring a fair amount of supplemental oxygen. -Broad-spectrum antibiotic coverage with vancomycin, cefepime and azithromycin -IV steroids -Scheduled and as needed nebulizers -Supplement oxygen, currently requiring noninvasive ventilation -Gentle fluids -Nothing by mouth for today, reassess tomorrow -Follow-up cultures Recent subdural hematoma, traumatic - injury occurred about 6 weeks ago and he has been hospitalized recently and is currently receiving therapy at a local [facility]. Injury complicated by worsening of his baseline dysphasia. -Nothing by mouth -Physical therapy once more stable Essential hypertension - blood pressure on the low side and home medications will be held today. Stage III chronic kidney disease - kidney function stable and at baseline at this time. Maintenance issues - - DVT prophylaxis - mechanical, platelets <100K, recent subdural hematoma - GI prophylaxis - PPI - Nutrition - nothing by mouth for now - [place] catheter - not indicated at this moment but may be considered if mental status declines Disposition - anticipate [facility] back to the [facility] after the hospital stay Madhav Felder M.D.
[2017-09-25] MEDS: methylPREDNISolone Sodium Succinate 125 MG/2 ML SDV IVPUSH SCH ×2 (09:52→18:00)
[2017-09-25] MEDS: Albuterol/Ipratropium 3.0-0.5 MG/3 ML Neb Soln NEB SCH ×3 (10:58→20:18)
[2017-09-25] MEDS ORDERED: Loperamide 1 MG/5 ML Soln 5 ML UD Cup FTUBE PRN (15:32)
[2017-09-26] MEDS: Cefepime 2 GM in Sodium Chloride 0.9% 50 ML IV SCH ×2 (01:29→13:15)
[2017-09-26] MEDS: methylPREDNISolone Sodium Succinate 125 MG/2 ML SDV IVPUSH SCH (01:29)
[2017-09-26] MEDS: Azithromycin 500 MG in Sodium Chloride 0.9% 250 ML IV SCH (02:06)
[2017-09-26] MEDS: Pantoprazole 40 MG Vial IV SCH (05:45)
[2017-09-26] MEDS: Albuterol/Ipratropium 3.0-0.5 MG/3 ML Neb Soln NEB SCH ×4 (07:31→20:30)
[2017-09-26] MEDS: Levothyroxine 25 MCG Tab GTUBE SCH (07:58)
[2017-09-26] MEDS: levETIRAcetam 500 MG/5 ML Solution ML 473 ml Bottle GTUBE SCH ×2 (09:15→20:31)
[2017-09-26] MEDS: Allopurinol 300 MG Tab GTUBE SCH (09:15)
[2017-09-26] MEDS: Pindolol 10 MG Tab GTUBE SCH ×2 (09:15→20:30)
[2017-09-26] MEDS: predniSONE 20 MG Tab PO SCH ×2 (09:16→17:08)
--- NOTE | 2017-09-26 09:16 | PCM.PN ---
- General Info Date of Service: 09/26/17 Functional Status: Reports: Pain Controlled - Review of Systems General: Denies: Fever Pulmonary: Reports: Shortness of Breath Systems Review Comment:: There were no acute events overnight. He did not require noninvasive ventilation and supplemental oxygen has been weaned down to 4 L as of this morning. He is receiving high flow oxygen via Oxymizer. He has not had any fevers. Cough seems to be letting up. Mental status has improved significantly. He has ongoing generalized weakness. - Patient Data Vitals - Most Recent: Last Vital Signs Temp 35.6 C 09/26/17 08:00 Pulse 90 09/26/17 08:00 Resp 20 09/26/17 08:00 BP 124/42 L 09/26/17 08:00 Pulse Ox 100 09/26/17 08:00 Weight - Most Recent: 80.286 kg I&O - Last 24 Hours: Intake & Output 09/25/17 09/26/17 09/26/17 22:59 06:59 14:59 Intake Total 400 1749 Output Total 500 125 Balance -100 1624 Lab Results Last 24 Hours: Laboratory Results - last 24 hr 09/26/17 09/26/17 09/26/17 Range/Units 05:42 05:42 05:42 WBC 9.2 (4.5-11.0) K/uL RBC 2.73 L (4.30-5.90) M/uL Hgb 8.3 L (12.0-15.0) g/dL Hct 25.0 L (40.0-54.0) % MCV 92 (80-98) fL MCH 30 (27-31) pg MCHC 33 (32-36) % Plt Count 146 L (150-400) K/uL Neut % (Auto) 93 H (36-66) % Lymph % (Auto) 3 L (24-44) % [place] % (Auto) 4 (2-6) % Eos % (Auto) 1 L (2-4) % Baso % (Auto) 0 (0-1) % Sodium 134 L (140-148) mmol/L Potassium 4.0 (3.6-5.2) mmol/L Chloride 100 (100-108) mmol/L Carbon Dioxide 25 (21-32) mmol/L Anion Gap 13.0 (5.0-14.0) mmol/L BUN 31 H (7-18) mg/dL Creatinine 1.0 (0.8-1.3) mg/dL Est Cr Clr Drug Dosing 54.80 mL/min Estimated GFR (MDRD) > 60 (>60) Glucose 266 H (74-106) mg/dL Calcium 8.0 L (8.5-10.1) mg/dL Phosphorus 2.6 (2.5-4.9) mg/dL Magnesium 2.1 (1.8-2.4) mg/dL Iron 19 L (65-175) ug/dL TIBC 176 L (250-450) ug/dl % Saturation 11 L (20-55) % Total Bilirubin 0.5 (0.2-1.0) mg/dL AST 71 H (15-37) U/L ALT 99 H (12-78) U/L Alkaline Phosphatase 88 (46-116) U/L Total Protein 5.5 L (6.4-8.2) g/dL Albumin 2.2 L (3.4-5.0) g/dL Globulin 3.3 (2.3-3.5) g/dL Albumin/Globulin Ratio 0.7 L (1.2-2.2) Price Results Last 24 Hours: Microbiology 09/25/17 09:24 Gram Stain - Final Sputum - Expectorated Respiratory Culture - Preliminary NORMAL RESPIRATORY CHANELLE 1 DAY 09/24/17 00:15 Aerobic Blood Culture - Preliminary Blood - Arterial Line - Direct Stick NO GROWTH AFTER 1 DAY Anaerobic Blood Culture - Preliminary NO GROWTH AFTER 1 DAY 09/24/17 00:10 Aerobic Blood Culture - Preliminary Blood - Arm, Right NO GROWTH AFTER 1 DAY Anaerobic Blood Culture - Preliminary NO GROWTH AFTER 1 DAY Med Orders - Current: Current Medications Acetaminophen (Tylenol) 650 mg GTUBE Q4H PRN PRN Reason: Pain (Mild 1-3)/fever Albuterol (Proventil Neb Soln) 2.5 mg NEB Q4H PRN PRN Reason: Shortness Of Breath/wheezing Albuterol/Ipratropium (Duoneb 3.0-0.5 Mg/3 Ml) 3 ml NEB QIDRT [facility] Last Admin: 09/26/17 07:31 Dose: 3 ml Allopurinol (Zyloprim) 300 mg GTUBE DAILY [facility] Last Admin: 09/25/17 08:54 Dose: 300 mg Amlodipine Besylate (Norvasc) 10 mg GTUBE DAILY [facility] Azithromycin (Zithromax 200 Mg/5 Ml Susp) 500 mg NGTUBE Q24H [facility] Bisacodyl (Dulcolax) 10 mg RECTAL DAILY PRN PRN Reason: Constipation Famotidine (Pepcid) 20 mg GTUBE BEDTIME [facility] Cefepime HCl 2 gm/ Sodium (Chloride) 50 mls @ 100 mls/hr IV Q12H [facility] Last Admin: 09/26/17 01:29 Dose: 100 mls/hr Ferric Sodium Gluconate Complex 250 mg/ Sodium Chloride 120 mls @ 60 mls/hr IV ONETIME ONE Stop: 09/26/17 11:59 Insulin Aspart (Novolog) 0 unit SUBCUT QIDACANDBED [facility]; Protocol Levetiracetam (Keppra) 750 mg GTUBE BID [facility] Last Admin: 09/25/17 20:18 Dose: 750 mg Levothyroxine Sodium (Levothyroxine) 25 mcg GTUBE ACBREAKFAST [facility] Last Admin: 09/26/17 07:58 Dose: 25 mcg Loperamide HCl (Imodium) 2 mg FTUBE ASDIRECTED PRN PRN Reason: AFTER EACH LOOSE STOOL Lorazepam (Ativan) 0.5 - 1 mg IVPUSH Q4H PRN PRN Reason: Anxiety Ondansetron HCl (Zofran Odt) 4 mg PO Q6H PRN PRN Reason: Nausea able to take PO Ondansetron HCl (Zofran) 4 mg IV Q6H PRN PRN Reason: Nausea/Vomiting Pindolol (Pindolol) 5 mg GTUBE BID [facility] Last Admin: 09/25/17 20:18 Dose: 5 mg Prednisone (Prednisone) 20 mg PO BIDMEALS [facility] Sodium Chloride (Saline Flush) 10 ml FLUSH ASDIRECTED PRN PRN Reason: Keep Vein Open Last Admin: 09/24/17 23:45 Dose: 10 ml Valsartan (Diovan) 160 mg GTUBE DAILY [facility] Discontinued Medications Albuterol/Ipratropium (Duoneb 3.0-0.5 Mg/3 Ml) 3 ml NEB QID [facility] Last Admin: 09/25/17 06:29 Dose: 3 ml Enoxaparin Sodium (Lovenox) 40 mg SUBCUT DAILY [facility] Last Admin: 09/25/17 08:43 Dose: Not Given Azithromycin 500 mg/ Sodium (Chloride) 250 mls @ 250 mls/hr IV Q24H [facility] Last Admin: 09/26/17 02:06 Dose: 250 mls/hr Sodium Chloride (Normal Saline) 1,000 mls @ 50 mls/hr IV ASDIRECTED [facility] Last Admin: 09/25/17 08:38 Dose: 50 mls/hr Vancomycin HCl 1.5 gm/ Sodium (Chloride) 250 mls @ 150 mls/hr IV ONETIME ONE Stop: 09/25/17 03:25 Last Admin: 09/25/17 02:54 Dose: 150 mls/hr Vancomycin HCl 1.25 gm/ Sodium (Chloride) 250 mls @ 167 mls/hr IV Q12H [facility] Last Admin: 09/26/17 03:11 Dose: 167 mls/hr Methylprednisolone Sodium Succinate (Solu-Medrol) 125 mg IVPUSH ONETIME ONE Stop: 09/25/17 01:47 Last Admin: 09/25/17 02:53 Dose: 125 mg Methylprednisolone Sodium Succinate (Solu-Medrol) 62.5 mg IVPUSH Q8H [facility] Last Admin: 09/26/17 01:29 Dose: 62.5 mg Pantoprazole Sodium (Protonix Iv) 40 mg IV Q24H [facility] Last Admin: 09/26/17 05:45 Dose: 40 mg Potassium Chloride (Potassium Chloride Solution) 40 meq GTUBE ONETIME ONE Stop: 09/25/17 01:47 Last Admin: 09/25/17 02:53 Dose: 40 meq Sodium Chloride (Saline Flush) 10 ml FLUSH ASDIRECTED PRN PRN Reason: Keep Vein Open - Exam Quality Assessment: Supplemental Oxygen General: Alert, Oriented, Cooperative, No Acute Distress Neck: Supple Lungs: Normal Respiratory Effort, Decreased Breath Sounds (right base), Rhonchi (right lower lung) Cardiovascular: Regular Rate, Regular Rhythm GI/Abdominal Exam: Normal Bowel Sounds, Soft, Non-Tender, No Distention Extremities: No Pedal Edema Skin: Warm, Dry Psy/Mental Status: Alert, Normal Affect - Problem List & Annotations (1) Aspiration pneumonia SNOMED Code(s): 610205005 Code(s): J69.0 - PNEUMONITIS DUE TO INHALATION OF FOOD AND VOMIT Status: Acute Current Visit: Yes Qualifiers: Aspiration pneumonia type: due to regurgitated food Laterality: right Lung location: lower lobe of lung Qualified Code(s): J69.0 - Pneumonitis due to inhalation of food and vomit (2) Dysphagia SNOMED Code(s): 49131723, 590716451 Code(s): R13.10 - DYSPHAGIA, UNSPECIFIED Status: Chronic Current Visit: No Qualifiers: Dysphagia type: pharyngoesophageal phase Qualified Code(s): R13.14 - Dysphagia, pharyngoesophageal phase (3) CKD (chronic kidney disease) stage 3, GFR 30-59 ml/min SNOMED Code(s): 081913713 Code(s): N18.3 - CHRONIC KIDNEY DISEASE, STAGE 3 (MODERATE) Status: Chronic Current Visit: No (4) HTN, Essential hypertension SNOMED Code(s): 02435419 Code(s): I10 - ESSENTIAL (PRIMARY) HYPERTENSION Status: Chronic Current Visit: No (5) Subdural hematoma, post-traumatic SNOMED Code(s): 77472324 Code(s): S06.5X9A - TRAUM SUBDR HEM W LOC OF UNSP DURATION, INIT Status: Chronic Current Visit: Yes Qualifiers: Encounter type: subsequent encounter Loss of consciousness presence/ duration: with LOC of unspecified duration Qualified Code(s): S06.5X9D - Traumatic subdural hemorrhage with loss of consciousness of unspecified duration , subsequent encounter - Problem List Review Problem List Initiated/Reviewed/Updated: Yes - My Orders Last 24 Hours: My Active Orders 09/25/17 09:00 Allopurinol [Zyloprim] 300 mg GTUBE DAILY Pindolol 5 mg GTUBE BID Valsartan [Diovan] 160 mg GTUBE DAILY amLODIPine [Norvasc] 10 mg GTUBE DAILY levETIRAcetam [Keppra] 750 mg GTUBE BID 09/25/17 09:24 CULTURE RESPIRATORY + SMEAR [RM] Routine 09/25/17 11:00 Albuterol/Ipratropium [DuoNeb 3.0-0.5 MG/3 ML] 3 ml NEB QIDRT 09/25/17 12:01 SCD [Sequential Compression Device] [OM.PC] Routine 09/25/17 14:15 Consult to Dietary [Consult to Courseware Developer] [CONS] Routine 09/25/17 15:25 Feeding Tube Managment [Enteral Feedings] [RC] Q4H 09/25/17 15:31 Communication Order [RC] BID 09/25/17 15:32 Loperamide [Imodium] 2 mg FTUBE ASDIRECTED PRN 09/26/17 08:26 Blood Glucose Check, Bedside [RC] QIDACANDBED Communication Order [RC] PRN Communication Order [RC] PRN Diabetes Education [RC] Click to Edit Notify Provider [RC] PRN 09/26/17 09:00 predniSONE 20 mg PO BIDMEALS 09/26/17 09:13 PT Evaluation and Treatment [CONS] Routine 09/26/17 09:14 Discontinue Telemetry Monitoring [Cardiac Monitoring Discontinue] [RC] Click to Edit 09/26/17 10:00 Sodium Ferric Gluconate Cmplex [Ferrlecit IV] 250 mg Sodium Chloride 0.9% [ Normal Saline] 100 ml IV ONETIME 09/26/17 11:00 Insulin Aspart [NovoLOG] See Protocol SUBCUT QIDACANDBED 09/26/17 21:00 Famotidine [Pepcid] 20 mg GTUBE BEDTIME 09/27/17 05:00 BASIC METABOLIC PANEL,BMP [CHEM] Timed CBC W/O DIFF,HEMOGRAM [HEME] Timed (1) 09/27/17 09:00 Azithromycin [Zithromax 200 MG/5 ML Susp] 500 mg NGTUBE Q24H - Plan Plan:: ASSESSMENT AND PLAN - Aspiration pneumonia due to recurrent aspiration - Complicated by acute respiratory failure with significant hypoxia. He did not have fevers and did not require noninvasive ventilation. Significant clinical improvement and decreasing oxygen requirements. Cultures are negative. -Discontinue vancomycin -Continue cefepime and azithromycin -Transition steroids to prednisone -Scheduled and as needed nebulizers -Supplement oxygen, currently requiring noninvasive ventilation -Saline lock the IV -Nothing by mouth for the near future, will need outpatient speech pathology follow-up -Follow-up cultures Recent subdural hematoma, traumatic - injury occurred about 6 weeks ago and he has been hospitalized recently and is currently receiving therapy at a local skilled nursing. Injury complicated by worsening of his baseline dysphasia. -Nothing by mouth -Physical therapy Essential hypertension - blood pressure has improved and home medications were restarted. Stage III chronic kidney disease - kidney function stable and at baseline at this time. Maintenance issues - - DVT prophylaxis - mechanical, recent subdural hematoma - GI prophylaxis - PPI - Nutrition - nothing by mouth for now, he is receiving tube feedings and will be transitioned to bolus feeding tomorrow - [place] catheter - not indicated Disposition - anticipate discharge back to the skilled nursing after the hospital stay Madhav Felder M.D.
[2017-09-26] MEDS ORDERED: Sodium Ferric Gluconate Cmplex 250 MG in Sodium Chloride 0.9% 100 ML IV ONE (10:00)
[2017-09-26] MEDS: Insulin Aspart 100 Units/ML 3 ML Pen SUBCUT SCH ×3 (11:21→20:27)
[2017-09-26] MEDS: Famotidine 20 MG Tab GTUBE SCH (20:30)
[2017-09-27] MEDS: Cefepime 2 GM in Sodium Chloride 0.9% 50 ML IV SCH (01:15)
[2017-09-27] MEDS: Albuterol/Ipratropium 3.0-0.5 MG/3 ML Neb Soln NEB SCH ×4 (06:59→20:41)
[2017-09-27] MEDS: Insulin Aspart 100 Units/ML 3 ML Pen SUBCUT SCH ×5 (07:36→23:42)
[2017-09-27] MEDS: Levothyroxine 25 MCG Tab GTUBE SCH (07:37)
--- NOTE | 2017-09-27 09:22 | PCM.PN ---
- General Info Date of Service: 09/27/17 Functional Status: Reports: Pain Controlled, Tolerating Diet - Review of Systems General: Reports: Weakness. Denies: Fever Pulmonary: Denies: Shortness of Breath Systems Review Comment:: There were no acute events overnight. There has been further improvement in his respiratory status with decreasing supplemental oxygen requirements. Clinically he is looking and feeling better. Blood pressure and heart rate have been stable. He has not had fevers. Cultures remain negative. Tolerating tube feeds. - Patient Data Vitals - Most Recent: Last Vital Signs Temp 35.3 C 09/27/17 07:00 Pulse 88 09/27/17 07:00 Resp 20 09/27/17 07:00 BP 109/43 L 09/27/17 07:00 Pulse Ox 94 L 09/27/17 07:00 Weight - Most Recent: 83.007 kg I&O - Last 24 Hours: Intake & Output 09/26/17 09/27/17 09/27/17 22:59 06:59 14:59 Intake Total 360 2154 Output Total 550 325 300 Balance -190 1829 -300 Lab Results Last 24 Hours: Laboratory Results - last 24 hr 09/27/17 09/27/17 Range/Units 05:30 05:30 WBC 12.3 H (4.5-11.0) K/uL RBC 2.75 L (4.30-5.90) M/uL Hgb 8.1 L (12.0-15.0) g/dL Hct 25.4 L (40.0-54.0) % MCV 92 (80-98) fL MCH 30 (27-31) pg MCHC 32 (32-36) % Plt Count 160 (150-400) K/uL Sodium 137 L (140-148) mmol/L Potassium 3.7 (3.6-5.2) mmol/L Chloride 102 (100-108) mmol/L Carbon Dioxide 27 (21-32) mmol/L Anion Gap 11.7 (5.0-14.0) mmol/L BUN 35 H (7-18) mg/dL Creatinine 1.1 (0.8-1.3) mg/dL Est Cr Clr Drug Dosing 49.82 mL/min Estimated GFR (MDRD) > 60 (>60) Glucose 254 H (74-106) mg/dL Calcium 8.0 L (8.5-10.1) mg/dL Price Results Last 24 Hours: Microbiology 09/25/17 09:24 Gram Stain - Final Sputum - Expectorated Respiratory Culture - Final NORMAL RESPIRATORY CHANELLE 2 DAYS 09/24/17 00:15 Aerobic Blood Culture - Preliminary Blood - Arterial Line - Direct Stick NO GROWTH AFTER 2 DAYS Anaerobic Blood Culture - Preliminary NO GROWTH AFTER 2 DAYS 09/24/17 00:10 Aerobic Blood Culture - Preliminary Blood - Arm, Right NO GROWTH AFTER 2 DAYS Anaerobic Blood Culture - Preliminary NO GROWTH AFTER 2 DAYS Med Orders - Current: Current Medications Acetaminophen (Tylenol) 650 mg GTUBE Q4H PRN PRN Reason: Pain (Mild 1-3)/fever Albuterol (Proventil Neb Soln) 2.5 mg NEB Q4H PRN PRN Reason: Shortness Of Breath/wheezing Albuterol/Ipratropium (Duoneb 3.0-0.5 Mg/3 Ml) 3 ml NEB QIDRT [facility] Last Admin: 09/27/17 06:59 Dose: 3 ml Allopurinol (Zyloprim) 300 mg GTUBE DAILY [facility] Last Admin: 09/26/17 09:15 Dose: 300 mg Amlodipine Besylate (Norvasc) 10 mg GTUBE DAILY [facility] Azithromycin (Zithromax 200 Mg/5 Ml Susp) 500 mg NGTUBE Q24H [facility] Bisacodyl (Dulcolax) 10 mg RECTAL DAILY PRN PRN Reason: Constipation Famotidine (Pepcid) 20 mg GTUBE BEDTIME [facility] Last Admin: 09/26/17 20:30 Dose: 20 mg Cefepime HCl 2 gm/ Sodium (Chloride) 50 mls @ 100 mls/hr IV Q12H [facility] Last Admin: 09/27/17 01:15 Dose: 100 mls/hr Insulin Aspart (Novolog) 0 unit SUBCUT QIDACANDBED [facility]; Protocol Last Admin: 09/27/17 07:36 Dose: 6 unit Levetiracetam (Keppra) 750 mg GTUBE BID [facility] Last Admin: 09/26/17 20:31 Dose: 750 mg Levothyroxine Sodium (Levothyroxine) 25 mcg GTUBE ACBREAKFAST [facility] Last Admin: 09/27/17 07:37 Dose: 25 mcg Loperamide HCl (Imodium) 2 mg FTUBE ASDIRECTED PRN PRN Reason: AFTER EACH LOOSE STOOL Lorazepam (Ativan) 0.5 - 1 mg IVPUSH Q4H PRN PRN Reason: Anxiety Ondansetron HCl (Zofran Odt) 4 mg PO Q6H PRN PRN Reason: Nausea able to take PO Ondansetron HCl (Zofran) 4 mg IV Q6H PRN PRN Reason: Nausea/Vomiting Pindolol (Pindolol) 5 mg GTUBE BID [facility] Last Admin: 09/26/17 20:30 Dose: 5 mg Prednisone (Prednisone) 20 mg PO BIDMEALS [facility] Last Admin: 09/26/17 17:08 Dose: 20 mg Sodium Chloride (Saline Flush) 10 ml FLUSH ASDIRECTED PRN PRN Reason: Keep Vein Open Last Admin: 09/24/17 23:45 Dose: 10 ml Valsartan (Diovan) 160 mg GTUBE DAILY [facility] Discontinued Medications Albuterol/Ipratropium (Duoneb 3.0-0.5 Mg/3 Ml) 3 ml NEB QID [facility] Last Admin: 09/25/17 06:29 Dose: 3 ml Enoxaparin Sodium (Lovenox) 40 mg SUBCUT DAILY [facility] Last Admin: 09/25/17 08:43 Dose: Not Given Azithromycin 500 mg/ Sodium (Chloride) 250 mls @ 250 mls/hr IV Q24H [facility] Last Admin: 09/26/17 02:06 Dose: 250 mls/hr Sodium Chloride (Normal Saline) 1,000 mls @ 50 mls/hr IV ASDIRECTED [facility] Last Admin: 09/25/17 08:38 Dose: 50 mls/hr Vancomycin HCl 1.5 gm/ Sodium (Chloride) 250 mls @ 150 mls/hr IV ONETIME ONE Stop: 09/25/17 03:25 Last Admin: 09/25/17 02:54 Dose: 150 mls/hr Vancomycin HCl 1.25 gm/ Sodium (Chloride) 250 mls @ 167 mls/hr IV Q12H [facility] Last Admin: 09/26/17 03:11 Dose: 167 mls/hr Ferric Sodium Gluconate Complex 250 mg/ Sodium Chloride 120 mls @ 60 mls/hr IV ONETIME ONE Stop: 09/26/17 11:59 Last Admin: 09/26/17 10:43 Dose: 60 mls/hr Methylprednisolone Sodium Succinate (Solu-Medrol) 125 mg IVPUSH ONETIME ONE Stop: 09/25/17 01:47 Last Admin: 09/25/17 02:53 Dose: 125 mg Methylprednisolone Sodium Succinate (Solu-Medrol) 62.5 mg IVPUSH Q8H [facility] Last Admin: 09/26/17 01:29 Dose: 62.5 mg Pantoprazole Sodium (Protonix Iv) 40 mg IV Q24H [facility] Last Admin: 09/26/17 05:45 Dose: 40 mg Potassium Chloride (Potassium Chloride Solution) 40 meq GTUBE ONETIME ONE Stop: 09/25/17 01:47 Last Admin: 09/25/17 02:53 Dose: 40 meq Sodium Chloride (Saline Flush) 10 ml FLUSH ASDIRECTED PRN PRN Reason: Keep Vein Open - Exam Quality Assessment: Supplemental Oxygen General: Alert, Oriented, Cooperative, No Acute Distress Neck: Supple Lungs: Clear to Auscultation, Normal Respiratory Effort Cardiovascular: Regular Rate, Regular Rhythm GI/Abdominal Exam: Soft, No Distention Extremities: No Pedal Edema Psy/Mental Status: Alert, Normal Affect - Problem List & Annotations (1) Aspiration pneumonia SNOMED Code(s): 740033120 Code(s): J69.0 - PNEUMONITIS DUE TO INHALATION OF FOOD AND VOMIT Status: Acute Current Visit: Yes Qualifiers: Aspiration pneumonia type: due to regurgitated food Laterality: right Lung location: lower lobe of lung Qualified Code(s): J69.0 - Pneumonitis due to inhalation of food and vomit (2) Dysphagia SNOMED Code(s): 91761754, 914688992 Code(s): R13.10 - DYSPHAGIA, UNSPECIFIED Status: Chronic Current Visit: No Qualifiers: Dysphagia type: pharyngoesophageal phase Qualified Code(s): R13.14 - Dysphagia, pharyngoesophageal phase (3) CKD (chronic kidney disease) stage 3, GFR 30-59 ml/min SNOMED Code(s): 718475953 Code(s): N18.3 - CHRONIC KIDNEY DISEASE, STAGE 3 (MODERATE) Status: Chronic Current Visit: No (4) HTN, Essential hypertension SNOMED Code(s): 92322821 Code(s): I10 - ESSENTIAL (PRIMARY) HYPERTENSION Status: Chronic Current Visit: No (5) Subdural hematoma, post-traumatic SNOMED Code(s): 35346065 Code(s): S06.5X9A - TRAUM SUBDR HEM W LOC OF UNSP DURATION, INIT Status: Chronic Current Visit: Yes Qualifiers: Encounter type: subsequent encounter Loss of consciousness presence/ duration: with LOC of unspecified duration Qualified Code(s): S06.5X9D - Traumatic subdural hemorrhage with loss of consciousness of unspecified duration , subsequent encounter - Problem List Review Problem List Initiated/Reviewed/Updated: Yes - My Orders Last 24 Hours: My Active Orders 09/26/17 08:26 Blood Glucose Check, Bedside [RC] QIDACANDBED Communication Order [RC] PRN Communication Order [RC] PRN Diabetes Education [RC] Click to Edit Notify Provider [RC] PRN 09/26/17 09:00 predniSONE 20 mg PO BIDMEALS 09/26/17 09:13 PT Evaluation and Treatment [CONS] Routine 09/26/17 10:59 Transfer Patient (Change bed) [ADT] Routine Convert IV to Saline Lock [OM.PC] Routine 09/26/17 11:00 Insulin Aspart [NovoLOG] See Protocol SUBCUT QIDACANDBED 09/26/17 21:00 Famotidine [Pepcid] 20 mg GTUBE BEDTIME 09/27/17 01:09 Communication Order [RC] ONETIME 09/27/17 09:00 Azithromycin [Zithromax 200 MG/5 ML Susp] 500 mg NGTUBE Q24H 09/27/17 09:20 Potassium Chloride [Potassium Chloride Solution] 40 meq GTUBE ONETIME ONE 09/27/17 10:00 Cefdinir [Omnicef 250 MG/5 ML Susp] 300 mg GTUBE BID 09/28/17 05:00 CBC W/O DIFF,HEMOGRAM [HEME] Timed (1) POTASSIUM,K [CHEM] Timed - Plan Plan:: ASSESSMENT AND PLAN - Aspiration pneumonia due to recurrent aspiration - Complicated by acute respiratory failure with significant hypoxia. Cultures remain negative. Ongoing clinical improvement but still requiring supplemental oxygen. -Discontinue cefepime -Continue azithromycin and add cefdinir -Continue prednisone -Scheduled and as needed nebulizers -Supplement oxygen, currently requiring noninvasive ventilation -Saline lock the IV -Nothing by mouth for the near future, will need outpatient speech pathology follow-up -Follow-up cultures Recent subdural hematoma, traumatic - injury occurred about 6 weeks ago and he has been hospitalized recently and is currently receiving therapy at a local [facility]. Injury complicated by worsening of his baseline dysphasia. -Nothing by mouth -Physical therapy -Outpatient speech pathology, anticipate nothing by mouth and tube feedings for 2 weeks or possibly more Essential hypertension - blood pressure has improved and home medications were restarted. Stage III chronic kidney disease - kidney function stable and at baseline at this time. Maintenance issues - - DVT prophylaxis - mechanical, recent subdural hematoma - GI prophylaxis - PPI - Nutrition - nothing by mouth for now, transitioning to nocturnal tube feedings tonight - [place] catheter - not indicated Disposition - anticipate discharge back to the [facility] after the hospital stay Madhav Felder M.D.
[2017-09-27] MEDS ORDERED: Dimethicone 20%/Zinc Oxide 25% 56 GM Spray Bottle TOP PRN (09:23)
[2017-09-27] MEDS ORDERED: Potassium Chloride 10% 20 MEQ/15 ML Soln 15 ML UD Cup GTUBE ONE (10:00)
[2017-09-27] MEDS: Pindolol 10 MG Tab GTUBE SCH ×2 (10:07→20:42)
[2017-09-27] MEDS: Allopurinol 300 MG Tab GTUBE SCH (10:08)
[2017-09-27] MEDS: amLODIPine 10 MG Tab GTUBE SCH (10:08)
[2017-09-27] MEDS: predniSONE 20 MG Tab PO SCH ×2 (10:08→17:16)
[2017-09-27] MEDS: levETIRAcetam 500 MG/5 ML Solution ML 473 ml Bottle GTUBE SCH ×2 (10:09→20:41)
[2017-09-27] MEDS: Cefdinir 250 MG/5 ML Susp 60 ML Bottle GTUBE SCH ×2 (10:09→20:41)
[2017-09-27] MEDS: Azithromycin 200 MG/5 ML Susp 30 ML Bottle NGTUBE SCH (11:19)
[2017-09-27] MEDS: Famotidine 20 MG Tab GTUBE SCH (20:42)
[2017-09-28] MEDS: Insulin Aspart 100 Units/ML 3 ML Pen SUBCUT SCH ×4 (05:36→23:31)
[2017-09-28] MEDS: Albuterol/Ipratropium 3.0-0.5 MG/3 ML Neb Soln NEB SCH ×4 (07:01→20:15)
[2017-09-28] MEDS: predniSONE 20 MG Tab PO SCH ×2 (07:32→17:55)
[2017-09-28] MEDS: Levothyroxine 25 MCG Tab GTUBE SCH (07:32)
[2017-09-28] MEDS ORDERED: Magnesium Hydroxide 400 MG/5 ML Susp 30 ML Cup GTUBE PRN (08:52)
--- NOTE | 2017-09-28 09:21 | PCM.PN ---
- General Info Date of Service: 09/28/17 Functional Status: Reports: Pain Controlled, Ambulating - Review of Systems General: Denies: Fever Gastrointestinal: Denies: Abdominal Pain Systems Review Comment:: There were no acute events overnight. Did require supplemental oxygen while he was sleeping. He is off oxygen again this morning. No fevers. No complaints of cough or shortness of breath. He has been up and walking around. Blood sugars have been moderately elevated with tube feedings. - Patient Data Vitals - Most Recent: Last Vital Signs Temp 35.9 C 09/28/17 07:00 Pulse 92 09/28/17 07:01 Resp 16 09/28/17 07:00 BP 107/49 L 09/28/17 07:00 Pulse Ox 98 09/28/17 07:00 Weight - Most Recent: 83.234 kg I&O - Last 24 Hours: Intake & Output 09/27/17 09/28/17 09/28/17 22:59 06:59 14:59 Intake Total 200 1409 426 Output Total 200 475 100 Balance 0 934 326 Lab Results Last 24 Hours: Laboratory Results - last 24 hr 09/28/17 09/28/17 Range/Units 05:30 05:30 WBC 7.8 (4.5-11.0) K/uL RBC 2.78 L (4.30-5.90) M/uL Hgb 8.3 L (12.0-15.0) g/dL Hct 26.1 L (40.0-54.0) % MCV 94 (80-98) fL MCH 30 (27-31) pg MCHC 32 (32-36) % Plt Count 164 (150-400) K/uL Potassium 4.1 (3.6-5.2) mmol/L Price Results Last 24 Hours: Microbiology 09/24/17 00:15 Aerobic Blood Culture - Preliminary Blood - Arterial Line - Direct Stick NO GROWTH AFTER 3 DAYS Anaerobic Blood Culture - Preliminary NO GROWTH AFTER 3 DAYS 09/24/17 00:10 Aerobic Blood Culture - Preliminary Blood - Arm, Right NO GROWTH AFTER 3 DAYS Anaerobic Blood Culture - Preliminary NO GROWTH AFTER 3 DAYS 09/25/17 09:24 Gram Stain - Final Sputum - Expectorated Respiratory Culture - Final NORMAL RESPIRATORY CHANELLE 2 DAYS Med Orders - Current: Current Medications Acetaminophen (Tylenol) 650 mg GTUBE Q4H PRN PRN Reason: Pain (Mild 1-3)/fever Albuterol (Proventil Neb Soln) 2.5 mg NEB Q4H PRN PRN Reason: Shortness Of Breath/wheezing Albuterol/Ipratropium (Duoneb 3.0-0.5 Mg/3 Ml) 3 ml NEB QIDRT [facility] Last Admin: 09/28/17 07:01 Dose: 3 ml Allopurinol (Zyloprim) 300 mg GTUBE DAILY [facility] Last Admin: 09/27/17 10:08 Dose: 300 mg Amlodipine Besylate (Norvasc) 10 mg GTUBE DAILY [facility] Last Admin: 09/27/17 10:08 Dose: 10 mg Aspirin (Aspirin) 81 mg GTUBE DAILY [facility] Azithromycin (Zithromax 200 Mg/5 Ml Susp) 500 mg NGTUBE Q24H [facility] Last Admin: 09/27/17 11:19 Dose: 500 mg Bisacodyl (Dulcolax) 10 mg RECTAL DAILY PRN PRN Reason: Constipation Cefdinir (Omnicef 250 Mg/5 Ml Susp) 300 mg GTUBE BID [facility] Last Admin: 09/27/17 20:41 Dose: 300 mg Dimethicone/Zinc Oxide (Rash Relief-Zinc Oxide Corona) 0 gm TOP ASDIRECTED PRN PRN Reason: Rash Last Admin: 09/27/17 10:11 Dose: 1 bottle Famotidine (Pepcid) 20 mg GTUBE BEDTIME [facility] Last Admin: 09/27/17 20:42 Dose: 20 mg Insulin Aspart (Novolog) 0 unit SUBCUT Q6H [facility]; Protocol Last Admin: 09/28/17 05:36 Dose: 6 unit Insulin Detemir (Levemir) 8 unit SUBCUT BID [facility] Levetiracetam (Keppra) 750 mg GTUBE BID [facility] Last Admin: 09/27/17 20:41 Dose: 750 mg Levothyroxine Sodium (Levothyroxine) 25 mcg GTUBE ACBREAKFAST [facility] Last Admin: 09/28/17 07:32 Dose: 25 mcg Loperamide HCl (Imodium) 2 mg FTUBE ASDIRECTED PRN PRN Reason: AFTER EACH LOOSE STOOL Lorazepam (Ativan) 0.5 - 1 mg IVPUSH Q4H PRN PRN Reason: Anxiety Magnesium Hydroxide (Milk Of Magnesia) 30 ml GTUBE BID PRN PRN Reason: Constipation Ondansetron HCl (Zofran Odt) 4 mg PO Q6H PRN PRN Reason: Nausea able to take PO Ondansetron HCl (Zofran) 4 mg IV Q6H PRN PRN Reason: Nausea/Vomiting Pindolol (Pindolol) 5 mg GTUBE BID [facility] Last Admin: 09/27/17 20:42 Dose: 5 mg Prednisone (Prednisone) 20 mg PO BIDMEALS [facility] Last Admin: 09/28/17 07:32 Dose: 20 mg Rosuvastatin Calcium (Crestor) 10 mg GTUBE BEDTIME [facility] Sodium Chloride (Saline Flush) 10 ml FLUSH ASDIRECTED PRN PRN Reason: Keep Vein Open Last Admin: 09/24/17 23:45 Dose: 10 ml Valsartan (Diovan) 160 mg GTUBE DAILY [facility] Last Admin: 09/27/17 10:07 Dose: 160 mg Discontinued Medications Albuterol/Ipratropium (Duoneb 3.0-0.5 Mg/3 Ml) 3 ml NEB QID [facility] Last Admin: 09/25/17 06:29 Dose: 3 ml Enoxaparin Sodium (Lovenox) 40 mg SUBCUT DAILY [facility] Last Admin: 09/25/17 08:43 Dose: Not Given Cefepime HCl 2 gm/ Sodium (Chloride) 50 mls @ 100 mls/hr IV Q12H [facility] Last Admin: 09/27/17 01:15 Dose: 100 mls/hr Azithromycin 500 mg/ Sodium (Chloride) 250 mls @ 250 mls/hr IV Q24H [facility] Last Admin: 09/26/17 02:06 Dose: 250 mls/hr Sodium Chloride (Normal Saline) 1,000 mls @ 50 mls/hr IV ASDIRECTED [facility] Last Admin: 09/25/17 08:38 Dose: 50 mls/hr Vancomycin HCl 1.5 gm/ Sodium (Chloride) 250 mls @ 150 mls/hr IV ONETIME ONE Stop: 09/25/17 03:25 Last Admin: 09/25/17 02:54 Dose: 150 mls/hr Vancomycin HCl 1.25 gm/ Sodium (Chloride) 250 mls @ 167 mls/hr IV Q12H [facility] Last Admin: 09/26/17 03:11 Dose: 167 mls/hr Ferric Sodium Gluconate Complex 250 mg/ Sodium Chloride 120 mls @ 60 mls/hr IV ONETIME ONE Stop: 09/26/17 11:59 Last Admin: 09/26/17 10:43 Dose: 60 mls/hr Insulin Aspart (Novolog) 0 unit SUBCUT QIDACANDBED [facility]; Protocol Last Admin: 09/27/17 12:47 Dose: Not Given Methylprednisolone Sodium Succinate (Solu-Medrol) 125 mg IVPUSH ONETIME ONE Stop: 09/25/17 01:47 Last Admin: 09/25/17 02:53 Dose: 125 mg Methylprednisolone Sodium Succinate (Solu-Medrol) 62.5 mg IVPUSH Q8H [facility] Last Admin: 09/26/17 01:29 Dose: 62.5 mg Pantoprazole Sodium (Protonix Iv) 40 mg IV Q24H [facility] Last Admin: 09/26/17 05:45 Dose: 40 mg Potassium Chloride (Potassium Chloride Solution) 40 meq GTUBE ONETIME ONE Stop: 09/25/17 01:47 Last Admin: 09/25/17 02:53 Dose: 40 meq Potassium Chloride (Potassium Chloride Solution) 40 meq GTUBE ONETIME ONE Stop: 09/27/17 10:01 Last Admin: 09/27/17 10:09 Dose: 40 meq Sodium Chloride (Saline Flush) 10 ml FLUSH ASDIRECTED PRN PRN Reason: Keep Vein Open - Exam Quality Assessment: No: Supplemental Oxygen General: Alert, Oriented, Cooperative, No Acute Distress Neck: Supple Lungs: Normal Respiratory Effort, Crackles (rare right lung base). No: Wheezing Cardiovascular: Regular Rate, Regular Rhythm GI/Abdominal Exam: Normal Bowel Sounds, Soft, Non-Tender, No Distention Extremities: No Pedal Edema Psy/Mental Status: Alert, Normal Affect - Problem List & Annotations (1) Aspiration pneumonia SNOMED Code(s): 435922227 Code(s): J69.0 - PNEUMONITIS DUE TO INHALATION OF FOOD AND VOMIT Status: Acute Current Visit: Yes Qualifiers: Aspiration pneumonia type: due to regurgitated food Laterality: right Lung location: lower lobe of lung Qualified Code(s): J69.0 - Pneumonitis due to inhalation of food and vomit (2) Dysphagia SNOMED Code(s): 79339700, 856482565 Code(s): R13.10 - DYSPHAGIA, UNSPECIFIED Status: Chronic Current Visit: No Qualifiers: Dysphagia type: pharyngoesophageal phase Qualified Code(s): R13.14 - Dysphagia, pharyngoesophageal phase (3) CKD (chronic kidney disease) stage 3, GFR 30-59 ml/min SNOMED Code(s): 341886489 Code(s): N18.3 - CHRONIC KIDNEY DISEASE, STAGE 3 (MODERATE) Status: Chronic Current Visit: No (4) HTN, Essential hypertension SNOMED Code(s): 69229045 Code(s): I10 - ESSENTIAL (PRIMARY) HYPERTENSION Status: Chronic Current Visit: No (5) Subdural hematoma, post-traumatic SNOMED Code(s): 16213135 Code(s): S06.5X9A - TRAUM SUBDR HEM W LOC OF UNSP DURATION, INIT Status: Chronic Current Visit: Yes Qualifiers: Encounter type: subsequent encounter Loss of consciousness presence/ duration: with LOC of unspecified duration Qualified Code(s): S06.5X9D - Traumatic subdural hemorrhage with loss of consciousness of unspecified duration , subsequent encounter - Problem List Review Problem List Initiated/Reviewed/Updated: Yes - My Orders Last 24 Hours: My Active Orders 09/27/17 09:00 Azithromycin [Zithromax 200 MG/5 ML Susp] 500 mg NGTUBE Q24H 09/27/17 09:23 Dimethicone/Zinc Oxide [Rash Relief-Zinc Oxide Corona] 0 gm TOP ASDIRECTED PRN 09/27/17 10:00 Cefdinir [Omnicef 250 MG/5 ML Susp] 300 mg GTUBE BID 09/27/17 12:00 Blood Glucose Check, Bedside [RC] Q6H Insulin Aspart [NovoLOG] 0 unit SUBCUT Q6H 09/27/17 18:00 Enteral Feedings [RC] ASDIRECTED 09/28/17 08:52 Magnesium Hydroxide [Milk of Magnesia] 30 ml GTUBE BID PRN 09/28/17 10:00 Aspirin 81 mg GTUBE DAILY Insulin Detemir [Levemir] 8 unit SUBCUT BID 09/28/17 21:00 Rosuvastatin [Crestor] 10 mg GTUBE BEDTIME - Plan Plan:: ASSESSMENT AND PLAN - Aspiration pneumonia due to recurrent aspiration - Complicated by acute respiratory failure with significant hypoxia. Cultures remain negative. Off oxygen during the day but did require at night. Clinically doing quite well. -Continue azithromycin and cefdinir -Continue prednisone -Scheduled and as needed nebulizers -Saline lock the IV -Nothing by mouth for the near future, will need outpatient speech pathology follow-up -Follow-up cultures Recent subdural hematoma, traumatic - injury occurred about 6 weeks ago and he has been hospitalized recently and is currently receiving therapy at a local alf. Injury complicated by worsening of his baseline dysphasia. -Nothing by mouth -Physical therapy -Outpatient speech pathology, anticipate nothing by mouth and tube feedings for 2 weeks or possibly more Essential hypertension - blood pressure has improved and home medications were restarted. Stage III chronic kidney disease - kidney function stable and at baseline at this time. Maintenance issues - - DVT prophylaxis - mechanical, recent subdural hematoma - GI prophylaxis - PPI - Nutrition - nothing by mouth for now, transitioning to nocturnal tube feedings tonight - [place] catheter - not indicated Disposition - anticipate discharge back to the alf after the hospital stay, likely tomorrow if stable overnight Madhav Felder M.D.
[2017-09-28] MEDS: levETIRAcetam 500 MG/5 ML Solution ML 473 ml Bottle GTUBE SCH ×2 (10:21→20:14)
[2017-09-28] MEDS: Cefdinir 250 MG/5 ML Susp 60 ML Bottle GTUBE SCH ×2 (10:23→20:14)
[2017-09-28] MEDS: Aspirin 81 MG Tab.Chew GTUBE SCH (10:23)
[2017-09-28] MEDS: Azithromycin 200 MG/5 ML Susp 30 ML Bottle NGTUBE SCH (10:23)
[2017-09-28] MEDS: amLODIPine 10 MG Tab GTUBE SCH (10:23)
[2017-09-28] MEDS: Allopurinol 300 MG Tab GTUBE SCH (10:24)
[2017-09-28] MEDS: Pindolol 10 MG Tab GTUBE SCH ×2 (10:24→20:14)
[2017-09-28] MEDS: Insulin Detemir 100 Units/ML 3 ML Pen SUBCUT SCH ×2 (10:49→20:22)
[2017-09-28] MEDS ORDERED: Azithromycin 200 MG/5 ML Susp 30 ML Bottle NGTUBE SCH (15:00)
--- NOTE | 2017-09-28 16:10 | PCM.DCSUM1 ---
Discharge Summary - Hospital Course Brief History: 82-year-old male with history of diabetes, recent subdural hematoma and difficulty with dysphasia who presented with fever, hypoxia and lethargy. He was admitted for management of aspiration pneumonia with hypoxic respiratory failure. - Discharge Data Discharge Date: 09/29/17 Discharge Disposition: DC/Tfer to SNF 03 Condition: Good - Discharge Diagnosis/Problem(s) (1) Aspiration pneumonia SNOMED Code(s): 172163360 ICD Code: J69.0 - PNEUMONITIS DUE TO INHALATION OF FOOD AND VOMIT Status: Acute Current Visit: Yes Qualifiers: Aspiration pneumonia type: due to regurgitated food Laterality: right Lung location: lower lobe of lung Qualified Code(s): J69.0 - Pneumonitis due to inhalation of food and vomit (2) Dysphagia SNOMED Code(s): 26675215, 056343565 ICD Code: R13.10 - DYSPHAGIA, UNSPECIFIED Status: Chronic Current Visit: No Qualifiers: Dysphagia type: pharyngoesophageal phase Qualified Code(s): R13.14 - Dysphagia, pharyngoesophageal phase (3) CKD (chronic kidney disease) stage 3, GFR 30-59 ml/min SNOMED Code(s): 526765417 ICD Code: N18.3 - CHRONIC KIDNEY DISEASE, STAGE 3 (MODERATE) Status: Chronic Current Visit: No (4) HTN, Essential hypertension SNOMED Code(s): 64433731 ICD Code: I10 - ESSENTIAL (PRIMARY) HYPERTENSION Status: Chronic Current Visit: No (5) Subdural hematoma, post-traumatic SNOMED Code(s): 26279550 ICD Code: S06.5X9A - TRAUM SUBDR HEM W LOC OF UNSP DURATION, INIT Status: Chronic Current Visit: Yes Qualifiers: Encounter type: subsequent encounter Loss of consciousness presence/ duration: with LOC of unspecified duration Qualified Code(s): S06.5X9D - Traumatic subdural hemorrhage with loss of consciousness of unspecified duration , subsequent encounter - Patient Summary/Data Consults: Consultations 09/25/17 14:15 Consult to Dietary [Consult to Circuit Tester] [CONS] Routine Comment: Physician Instructions: Quantity: Reason for Consult: tube feeding recs 09/26/17 09:13 PT Evaluation and Treatment [CONS] Routine Please Evaluate and Treat. PT Reason for Consult: Strengthening This query below is only for informational purposes and is not editable. Admission Diagnosis/Problem: Aspiration pneumonia Hospital Course: Trever presented to the emergency room with fever, hypoxia and lethargy. Workup in the emergency room suggested aspiration pneumonia with a right lower lung infiltrate and hypoxic respiratory failure. He did require noninvasive ventilation in the emergency room to maintain his respiratory status. He was started on broad-spectrum antibiotics because of recent antibiotic use as well as a recent hospital admission. He was admitted to the intensive care unit for management of respiratory failure requiring noninvasive ventilation. Overnight following admission he required noninvasive ventilation continuously. Blood pressure and heart rate are fortunately stable. He did not have any fevers. By the morning after admission we were able to remove the noninvasive ventilation and maintain adequate oxygenation utilizing high flow oxygen via the Oxymizer. He remained afebrile with stable vital signs. His mental status slowly improved over the course of the first 24 hours of admission. As he stabilized from a respiratory standpoint we did initiate tube feeds which were initially continuous. We did not let him have anything by mouth with concern that he was aspirating. We had steady improvement throughout the course of the hospital stay. Supplemental oxygen requirements decreased steadily and he is now off oxygen during the day but does continue to require supplemental oxygen at night. His vital signs have remained stable and he has been afebrile. All of his cultures have been negative. White blood cell count has been normal and his kidney function has remained normal. He was evaluated by physical therapy and has been working with them as they have been available. With the steroids and tube feeding he did require supplemental insulin but I expect that after the steroids are discontinued this requirement will disappear. He will not be receiving insulin at the time of discharge. Given the timeframe for onset and progression of symptoms with respiratory decline I'm very concerned that he has been aspirating. He was recently evaluated by speech pathology and it was felt that he would be safe to take oral food and liquids with multiple recommendations. With the severity of this event I would recommend that he remain nothing by mouth for approximately the next 2 weeks. He can be reevaluated by speech pathology at that time and determine if he is a candidate for another trial of oral intake. He will be on tube feeds as outlined in the discharge instructions. He has completed his course of antibiotics and steroids while hospitalized. All of his medications should be administered via the feeding tube. - Patient Instructions Diet: NPO Diet, Other: High risk for recurrent aspiration Activity: As Tolerated Showering/Bathing: May Shower Notify Provider of: Fever, Increased Pain, Nausea and/or Vomiting Other/Special Instructions: 1. You were in the hospital for management of aspiration pneumonia with hypoxic respiratory failure. Your condition has improved dramatically after supplemental oxygen, antibiotics and steroids. I am concerned that you may have additional aspiration events if we restart oral intake now. I would recommend that you do not take anything by mouth for the next 2 weeks and at that time you should be re-evaluated by the speech pathologist to determine if you can resume oral intake. You do not need additional antibiotics or steroids after your hospital discharge. 2. We have started tube feedings to provide adequate nutrition and water. These will run overnight from 6 PM to 8 AM. You will be receive Jevity 1.5-calorie at 86 mL per hour. You will also receive free water flushes of 180 mL every 4 hours. Tube feeding may cause diarrhea so I have provided a prescription for Imodium which you can use every 4 hours as needed. 3. I have placed a referral to physical and occupational therapy for strengthening. 4. I have placed a referral for speech pathology evaluation in approximately 2 weeks. 5. CODE STATUS - full code. 6. You should use oxygen at a rate of 2-4 L/m to keep your oxygen saturation greater than 90%. You are currently only requiring the oxygen at night. 7. Please check blood sugars in the morning and at bedtime. You did require insulin while you were in the hospital but this requirement should go away after the steroids are discontinued. Review of the blood sugars over the next few days will determine if you need insulin after hospital discharge. 8. Please seek medical attention if you develop the fever greater than 101 degrees , acute onset of shortness of breath, chest pain or severe abdominal pain. - Discharge Plan Prescriptions/Med Rec: Loperamide [Imodium] 2 mg FTUBE Q4H PRN #30 cup PRN Reason: AFTER EACH LOOSE STOOL Home Medications: Home Meds Allopurinol [Zyloprim] 300 mg GTUBE DAILY 09/30/13 [History] Rosuvastatin [Crestor] 10 mg GTUBE BEDTIME 09/30/13 [History] Magnesium Oxide [Magnesium] 400 mg GTUBE DAILY 12/05/16 [History] Albuterol Sulfate [Proair Hfa] 1 puff IH Q6H PRN 09/21/17 [History] D3/E/Se/Soy Isofl/Tocoph/Lycop [Prostate 2.4] 1 oz PO TID 09/21/17 [History] Ferrous Sulfate [Ferosul] 220 mg GTUBE BID 09/21/17 [History] Fluticasone Propionate [Flonase] 2 spray NS ASDIRECTED 09/21/17 [History] amLODIPine [Norvasc] 10 mg GTUBE DAILY 09/21/17 [History] levETIRAcetam [Keppra] 7.5 ml GTUBE Q12H 09/21/17 [History] Aspirin 1 tab GTUBE DAILY #0 09/28/17 [Rx] Cholecalciferol (Vitamin D3) [Vitamin D3] 50,000 units GTUBE WEEKLY #0 09/28/17 [Rx] Levothyroxine 25 mcg GTUBE DAILY #0 09/28/17 [Rx] Loperamide [Imodium] 2 mg FTUBE Q4H PRN #30 cup 09/28/17 [Rx] Pindolol 5 mg GTUBE BID #0 09/28/17 [Rx] Rosuvastatin [Crestor] 10 mg GTUBE BEDTIME #0 09/28/17 [Rx] Valsartan 160 mg GTUBE DAILY #0 09/28/17 [Rx] Patient Handouts: Aspiration Pneumonia, Gastrostomy Tube Home Guide, Adult Referrals: Francisco Cheng MD [Primary Care Provider] - (1-2 weeks - follow-up hospital stay for aspiration pneumonia) - Discharge Summary/Plan Comment DC Time >30 min.: Yes (40 - complex [facility] discharge) - Patient Data Vitals - Most Recent: Last Vital Signs Temp 36.1 C 09/28/17 11:00 Pulse 84 09/28/17 14:34 Resp 18 09/28/17 11:00 BP 121/84 09/28/17 11:00 Pulse Ox 100 09/28/17 11:00 Weight - Most Recent: 83.234 kg I&O - Last 24 hours: Intake & Output 09/28/17 09/28/17 09/28/17 06:59 14:59 22:59 Intake Total 1409 426 Output Total 475 100 Balance 934 326 Lab Results - Last 24 hrs: Laboratory Results - last 24 hr 09/28/17 09/28/17 Range/Units 05:30 05:30 WBC 7.8 (4.5-11.0) K/uL RBC 2.78 L (4.30-5.90) M/uL Hgb 8.3 L (12.0-15.0) g/dL Hct 26.1 L (40.0-54.0) % MCV 94 (80-98) fL MCH 30 (27-31) pg MCHC 32 (32-36) % Plt Count 164 (150-400) K/uL Potassium 4.1 (3.6-5.2) mmol/L TESFAYE Results - Last 24 hrs: Microbiology 09/24/17 00:15 Aerobic Blood Culture - Preliminary Blood - Arterial Line - Direct Stick NO GROWTH AFTER 3 DAYS Anaerobic Blood Culture - Preliminary NO GROWTH AFTER 3 DAYS 09/24/17 00:10 Aerobic Blood Culture - Preliminary Blood - Arm, Right NO GROWTH AFTER 3 DAYS Anaerobic Blood Culture - Preliminary NO GROWTH AFTER 3 DAYS Med Orders - Current: Current Medications Acetaminophen (Tylenol) 650 mg GTUBE Q4H PRN PRN Reason: Pain (Mild 1-3)/fever Albuterol (Proventil Neb Soln) 2.5 mg NEB Q4H PRN PRN Reason: Shortness Of Breath/wheezing Albuterol/Ipratropium (Duoneb 3.0-0.5 Mg/3 Ml) 3 ml NEB QIDRT [facility] Last Admin: 09/28/17 14:33 Dose: 3 ml Allopurinol (Zyloprim) 300 mg GTUBE DAILY [facility] Last Admin: 09/28/17 10:24 Dose: 300 mg Amlodipine Besylate (Norvasc) 10 mg GTUBE DAILY [facility] Last Admin: 09/28/17 10:23 Dose: 10 mg Aspirin (Aspirin) 81 mg GTUBE DAILY [facility] Last Admin: 09/28/17 10:23 Dose: 81 mg Azithromycin (Zithromax 200 Mg/5 Ml Susp) 500 mg NGTUBE Q24H [facility] Bisacodyl (Dulcolax) 10 mg RECTAL DAILY PRN PRN Reason: Constipation Cefdinir (Omnicef 250 Mg/5 Ml Susp) 300 mg GTUBE BID [facility] Last Admin: 09/28/17 10:23 Dose: 300 mg Dimethicone/Zinc Oxide (Rash Relief-Zinc Oxide [place]) 0 gm TOP ASDIRECTED PRN PRN Reason: Rash Last Admin: 09/27/17 10:11 Dose: 1 bottle Famotidine (Pepcid) 20 mg GTUBE BEDTIME [facility] Last Admin: 09/27/17 20:42 Dose: 20 mg Insulin Aspart (Novolog) 0 unit SUBCUT Q6H [facility]; Protocol Last Admin: 09/28/17 12:07 Dose: Not Given Insulin Detemir (Levemir) 8 unit SUBCUT BID [facility] Last Admin: 09/28/17 10:49 Dose: 8 unit Levetiracetam (Keppra) 750 mg GTUBE BID [facility] Last Admin: 09/28/17 10:21 Dose: 750 mg Levothyroxine Sodium (Levothyroxine) 25 mcg GTUBE ACBREAKFAST [facility] Last Admin: 09/28/17 07:32 Dose: 25 mcg Loperamide HCl (Imodium) 2 mg FTUBE ASDIRECTED PRN PRN Reason: AFTER EACH LOOSE STOOL Lorazepam (Ativan) 0.5 - 1 mg IVPUSH Q4H PRN PRN Reason: Anxiety Magnesium Hydroxide (Milk Of Magnesia) 30 ml GTUBE BID PRN PRN Reason: Constipation Ondansetron HCl (Zofran Odt) 4 mg PO Q6H PRN PRN Reason: Nausea able to take PO Ondansetron HCl (Zofran) 4 mg IV Q6H PRN PRN Reason: Nausea/Vomiting Pindolol (Pindolol) 5 mg GTUBE BID [facility] Last Admin: 09/28/17 10:24 Dose: 5 mg Prednisone (Prednisone) 20 mg PO BIDMEALS [facility] Last Admin: 09/28/17 07:32 Dose: 20 mg Rosuvastatin Calcium (Crestor) 10 mg GTUBE BEDTIME [facility] Sodium Chloride (Saline Flush) 10 ml FLUSH ASDIRECTED PRN PRN Reason: Keep Vein Open Last Admin: 09/24/17 23:45 Dose: 10 ml Valsartan (Diovan) 160 mg GTUBE DAILY [facility] Last Admin: 09/28/17 10:21 Dose: 160 mg Discontinued Medications Albuterol/Ipratropium (Duoneb 3.0-0.5 Mg/3 Ml) 3 ml NEB QID [facility] Last Admin: 09/25/17 06:29 Dose: 3 ml Azithromycin (Zithromax 200 Mg/5 Ml Susp) 500 mg NGTUBE Q24H [facility] Last Admin: 09/28/17 10:23 Dose: 500 mg Azithromycin (Zithromax 200 Mg/5 Ml Susp) 500 mg NGTUBE Q24H [facility] Enoxaparin Sodium (Lovenox) 40 mg SUBCUT DAILY [facility] Last Admin: 09/25/17 08:43 Dose: Not Given Cefepime HCl 2 gm/ Sodium (Chloride) 50 mls @ 100 mls/hr IV Q12H [facility] Last Admin: 09/27/17 01:15 Dose: 100 mls/hr Azithromycin 500 mg/ Sodium (Chloride) 250 mls @ 250 mls/hr IV Q24H [facility] Last Admin: 09/26/17 02:06 Dose: 250 mls/hr Sodium Chloride (Normal Saline) 1,000 mls @ 50 mls/hr IV ASDIRECTED [facility] Last Admin: 09/25/17 08:38 Dose: 50 mls/hr Vancomycin HCl 1.5 gm/ Sodium (Chloride) 250 mls @ 150 mls/hr IV ONETIME ONE Stop: 09/25/17 03:25 Last Admin: 09/25/17 02:54 Dose: 150 mls/hr Vancomycin HCl 1.25 gm/ Sodium (Chloride) 250 mls @ 167 mls/hr IV Q12H [facility] Last Admin: 09/26/17 03:11 Dose: 167 mls/hr Ferric Sodium Gluconate Complex 250 mg/ Sodium Chloride 120 mls @ 60 mls/hr IV ONETIME ONE Stop: 09/26/17 11:59 Last Admin: 09/26/17 10:43 Dose: 60 mls/hr Insulin Aspart (Novolog) 0 unit SUBCUT QIDACANDBED [facility]; Protocol Last Admin: 09/27/17 12:47 Dose: Not Given Methylprednisolone Sodium Succinate (Solu-Medrol) 125 mg IVPUSH ONETIME ONE Stop: 09/25/17 01:47 Last Admin: 09/25/17 02:53 Dose: 125 mg Methylprednisolone Sodium Succinate (Solu-Medrol) 62.5 mg IVPUSH Q8H [facility] Last Admin: 09/26/17 01:29 Dose: 62.5 mg Pantoprazole Sodium (Protonix Iv) 40 mg IV Q24H [facility] Last Admin: 09/26/17 05:45 Dose: 40 mg Potassium Chloride (Potassium Chloride Solution) 40 meq GTUBE ONETIME ONE Stop: 09/25/17 01:47 Last Admin: 09/25/17 02:53 Dose: 40 meq Potassium Chloride (Potassium Chloride Solution) 40 meq GTUBE ONETIME ONE Stop: 09/27/17 10:01 Last Admin: 09/27/17 10:09 Dose: 40 meq Sodium Chloride (Saline Flush) 10 ml FLUSH ASDIRECTED PRN PRN Reason: Keep Vein Open
[2017-09-28] MEDS: Famotidine 20 MG Tab GTUBE SCH (20:14)
[2017-09-28] MEDS ORDERED: Rosuvastatin 10 MG Tab GTUBE SCH (21:00)
[2017-09-29] MEDS: Insulin Aspart 100 Units/ML 3 ML Pen SUBCUT SCH (06:03)
[2017-09-29] MEDS: Albuterol/Ipratropium 3.0-0.5 MG/3 ML Neb Soln NEB SCH ×2 (07:27→11:16)
[2017-09-29 07:42] VITALS: BP 139/50
[2017-09-29] MEDS: Levothyroxine 25 MCG Tab GTUBE SCH (07:55)
[2017-09-29] MEDS: predniSONE 20 MG Tab PO SCH (07:55)
[2017-09-29] MEDS: Cefdinir 250 MG/5 ML Susp 60 ML Bottle GTUBE SCH (08:11)
[2017-09-29] MEDS: levETIRAcetam 500 MG/5 ML Solution ML 473 ml Bottle GTUBE SCH (08:11)
[2017-09-29] MEDS: Allopurinol 300 MG Tab GTUBE SCH (08:11)
[2017-09-29] MEDS: amLODIPine 10 MG Tab GTUBE SCH (08:12)
[2017-09-29] MEDS: Pindolol 10 MG Tab GTUBE SCH (08:12)
[2017-09-29] MEDS: Aspirin 81 MG Tab.Chew GTUBE SCH (08:12)
[2017-09-29] MEDS: Insulin Detemir 100 Units/ML 3 ML Pen SUBCUT SCH (08:25)
[2017-09-29] MEDS ORDERED: Azithromycin 200 MG/5 ML Susp 30 ML Bottle NGTUBE SCH (10:00)
== END 2017-09-29 13:51 | DRG 177 ==
LOC: JP.ED 23:21 → JP.ICU 09-25 01:04
PROVIDERS: ADMIT Internal Medicine; ATTEND Internal Medicine
DX: J69.0 Pneumonitis due to inhalation of food and vomit (principal); J96.01 Acute respiratory failure with hypoxia; I12.9 Hypertensive chronic kidney disease with stage 1 through stage 4 chronic kidney disease, or unspecified chronic kidney disease; N18.3 Chronic kidney disease, stage 3 (moderate); E11.22 Type 2 diabetes mellitus with diabetic chronic kidney disease; E03.9 Hypothyroidism, unspecified; R13.14 Dysphagia, pharyngoesophageal phase; S06.5X9D Traumatic subdural hemorrhage with loss of consciousness of unspecified duration, subsequent encounter; Z95.2 Presence of prosthetic heart valve; E78.00 Pure hypercholesterolemia, unspecified; M10.9 Gout, unspecified; Z85.89 Personal history of malignant neoplasm of other organs and systems; Z92.21 Personal history of antineoplastic chemotherapy; Z92.3 Personal history of irradiation; Z85.820 Personal history of malignant melanoma of skin; N40.0 Benign prostatic hyperplasia without lower urinary tract symptoms; Z87.01 Personal history of pneumonia (recurrent); H54.7 Unspecified visual loss; H91.90 Unspecified hearing loss, unspecified ear; Z88.1 Allergy status to other antibiotic agents; Z88.8 Allergy status to other drugs, medicaments and biological substances; Z79.82 Long term (current) use of aspirin
CPT/HCPCS: 71045 ×2; 93005; 99285; J7050; 36415; 36600; 80048; 80053; 82803; 82962; 83550; 83605; 83735; 83880; 84100; 84132; 84484; 85025; 85027; 86140; 87040; 87070; 87205; 93010; 94640; 94660; 94762; 97110-GP; 97162-GP; 97530-GP; 99284; A9270-GY; C9113; J0456; J0692; J2916; J2930; J3370; J7030; J7620